=== PATIENT | male | born 1945 | race Caucasian/White ===

== ENCOUNTER 2018-01-20 09:08 | Emergency (ER) | payer MEDICARE, BC ==
[2018-01-20] MEDS ORDERED: Orphenadrine 100 MG Tab.ER PO STA (10:03)
--- NOTE | 2018-01-20 10:03 | EDM.PDOC ---
ED HPI GENERAL MEDICAL PROBLEM - General Chief Complaint: Upper Extremity Injury/Pain Stated Complaint: RIB PAIN Time Seen by Provider: 01/20/18 09:22 Source of Information: Reports: Patient History Limitations: Reports: No Limitations - History of Present Illness INITIAL COMMENTS - FREE TEXT/NARRATIVE: The patient states that he has had a phlegmy cough and lower left rib pain since 01/12/2018. No fever. Chronic shortness of breath due to COPD. He was seen by his PCP, Heather Mchugh, on 01/14/2018. He states that a chest x-ray and blood work were done, and he was told that they were both normal. Nevertheless, the patient was prescribed Levaquin 500 mg x 10 days as well as prednisone 10 mg 2 tabs daily x 5 days. He states that if anything, his symptoms have gotten worse. He states that he coughed last night around 20:00 while lying on his left side, and it developed significantly increased lower left rib pain. His pain is not too severe if he remains still, but much worse if he coughs. The patient denies having any injury to the ribs. 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 left rib area Pain Score (Numeric/FACES): 6 - Related Data Allergies Allergy/AdvReac Type Severity Reaction Status Date / Time atorvastatin Allergy Other Verified 01/20/18 09:21 rosuvastatin Allergy Abdominal Verified 01/20/18 09:21 Pain Home Meds: Home Meds Albuterol Sulfate [Albuterol Sulfate HFA] 2 puff IH Q6H PRN 05/21/14 [History] Aspirin [Adult Low Dose Aspirin EC] 81 mg PO DAILY 05/21/14 [History] Budesonide/Formoterol [Symbicort 160-4.5 MCG] 2 puff INH BID 05/21/14 [History] Furosemide [Lasix] 40 mg PO DAILY 05/21/14 [History] Metoprolol Succinate [Toprol XL] 100 mg PO DAILY 05/21/14 [History] Potassium Chloride [Klor-Con M20] 20 meq PO BID 05/21/14 [History] Tiotropium [Spiriva] 1 puff INH DAILY 05/21/14 [History] Fish Oil/DHA/EPA [Fish Oil 1,200 MG] 1 each PO DAILY 01/20/18 [History] Flaxseed Oil [Flaxseed] 1,000 mg PO DAILY 01/20/18 [History] Levofloxacin [Levaquin] 500 mg PO DAILY 01/20/18 [History] Magnesium 250 mg PO DAILY 01/20/18 [History] Orphenadrine [Norflex] 1 tab PO Q12H PRN #20 tab.er 01/20/18 [Rx] Oxygen 2 liter IH BEDTIME 01/20/18 [History] Prednisone [IJD: predniSONE] 20 mg PO DAILY 01/20/18 [History] Ubidecarenone [Coenzyme Q10] 10 mg PO DAILY 01/20/18 [History] Warfarin Sliding Scale [Coumadin Sliding Scale] 1 each PO DAILY 01/20/18 [ History] Past Medical History HEENT History: Reports: Impaired Vision Cardiovascular History: Reports: Afib, CAD, High Cholesterol, Hypertension Respiratory History: Reports: COPD Musculoskeletal History: Reports: Arthritis - Past Surgical History HEENT Surgical History: Reports: Tonsillectomy Cardiovascular Surgical History: Reports: Valve Replacement (Porcine aortic valve, porcine mitral valve, 04/09/2014), Other (See Below) (Left atrial appendage clip) GI Surgical History: Reports: Hernia, Abdominal (As an infant) Musculoskeletal Surgical History: Reports: ORIF (Left leg. Hardware since removed.) Social & Family History - Family History Family Medical History: Noncontributory - Tobacco Use Smoking Status *Q: Former Smoker Years of Tobacco use: 54 Packs/Tins Daily: 1.5 Month Tobacco Last Used: Quit 01/26/2014 - Caffeine Use Caffeine Use: Reports: Soda - Alcohol Use Alcohol Use History: No - Recreational Drug Use Recreational Drug Use: No - Living Situation & Occupation Living situation: Reports: , with Spouse Occupation: Retired Review of Systems - Review of Systems Review Of Systems: ROS reveals no pertinent complaints other than HPI. ED EXAM, GENERAL - Physical Exam Exam: See Below Exam Limited By: No Limitations General Appearance: Alert, WD/WN, No Apparent Distress Eye Exam: Bilateral Eye: Normal Inspection Ears: Normal External Exam, Hearing Grossly Normal Nose: No Blood, Other (Telangiectasias noted on nose) Throat/Mouth: Normal Inspection, Normal Lips, Normal Voice, No Airway Compromise Head: Atraumatic, Normocephalic Neck: Normal Inspection, Full Range of Motion Respiratory/Chest: No Respiratory Distress, Lungs Clear, Normal Breath Sounds, No Accessory Muscle Use, Other (Reproducible tenderness to palpation of the inferior left ribs) Cardiovascular: Normal Peripheral Pulses, Regular Rate, Rhythm, No Gallop, No JVD, No Murmur, No Rub Peripheral Pulses: 4+: Radial (L), Radial (R) GI/Abdominal: Normal Bowel Sounds, Soft, Non-Tender, No Organomegaly, No Distention, No Abnormal Bruit, No Mass, Other (Patient wearing an abdominal binder) (Male) Exam: Deferred Rectal (Males) Exam: Deferred Back Exam: Normal Inspection, Full Range of Motion, NT Extremities: Normal Inspection, Normal Range of Motion, No Pedal Edema, Normal Capillary Refill Neurological: Alert, Oriented, Normal Cognition, No Motor/Sensory Deficits Psychiatric: Normal Affect Skin Exam: Warm, Dry, Intact, Normal Color, No Rash Course - Vital Signs Last Recorded V/S: Last Vital Signs Temp 36.1 C 01/20/18 09:11 Pulse 84 01/20/18 09:11 Resp 18 01/20/18 09:11 BP 121/74 01/20/18 09:11 Pulse Ox 98 01/20/18 09:11 - Orders/Labs/Meds Meds: Medications Discontinued Medications Generic Name Dose Route Start Last Admin Trade Name Urielq PRN Reason Stop Dose Admin Orphenadrine Citrate 100 mg 01/20/18 10:03 01/20/18 10:12 Norflex PO 01/20/18 10:04 100 mg ONETIME STA Administration - Re-Assessments/Exams Free Text/Narrative Re-Assessment/Exam: 01/20/18 09:55 Two-view chest radiograph appears to be grossly unremarkable. Cardiac silhouette is within normal limits. No pulmonary vascular congestion. No pleural effusions. No focal infiltrate. No pneumothorax. Sternotomy wires, 2 valve annular rings, and a left atrial appendage clip noted. Formal read per the Radiologist pending. 01/20/18 10:03 Chest x-ray results discussed with the patient. There is no evidence of a rib fracture, pneumothorax, or hemothorax. Based on the patient's history and physical examination, I suspect that he has a spasm of some intercostal muscles. I will prescribe Norflex. The patient was prescribed a ten-day course of Levaquin and a five-day course of prednisone on 01/14/2018, despite having a negative chest x-ray and being told that his blood work was unremarkable. I suspect that these were prescribed to treat a COPD exacerbation, however, I disagree with this management. Antibiotics should only be prescribed if there is evidence of an infection, and steroids should only be prescribed for COPD exacerbations if the patient has a 2 year or less life expectancy. If the patient has more than a 2 year life expectancy, as this patient does, steroids should be reserved for life- threatening COPD exacerbations. I'm therefore going to recommend that the patient discontinue both the Levaquin and prednisone. Departure - Departure Time of Disposition: 10:03 Disposition: Home, Self-Care 01 Condition: Good Clinical Impression: Intercostal muscle strain - Discharge Information Prescriptions: Orphenadrine [Norflex] 1 tab PO Q12H PRN #20 tab.er PRN Reason: Muscle Spasm Instructions: Muscle Strain, [id number] Referrals: Heather Mchugh, TELEPHONE MAINTAINER [Primary Care Provider] - Forms: ED Department Discharge Additional Instructions: You were seen in the emergency room for lower left rib pain. Workup in the ER included a chest x-ray, which was unremarkable. There is no evidence of a broken rib. You have not popped a lung, and there is no fluid inside your chest. Further, there is no infiltrate to suggest that you have pneumonia. Your lower left rib pain is MOST LIKELY due to a spasm of some muscles in between your lower left ribs. You have been started on the muscle relaxant Norflex. A prescription for this has been sent to the [facility] on , [address] from [facility]. They are opened between noon and 4:00 today. Take one tablet every 12 hours, as prescribed. As discussed, we recommend that you discontinue the Levaquin, and, if you have any remaining, the prednisone. Follow-up with your PCP, Heather Mchugh, as needed. If any other problems, please do not hesitate to return to the ER.
--- NOTE | 2018-01-20 11:53 | CR ---
Chest: Two views of the chest were obtained. Comparison: Previous chest x-ray of 02/06/14. Heart is enlarged. Previous sternotomy is noted for prosthetic heart valves. Central lung markings mildly increased which is felt compatible with minimal pulmonary vascular congestion. Lungs otherwise are clear. Minimal degenerative change is scattered within the spine. Impression: 1. Interval heart surgery from previous study. 2. Cardiomegaly and mild pulmonary vascular congestion. Diagnostic code #3
== END 2018-01-20 10:33 | disposition home or self-care (01) ==
LOC: JD.ED 09:08
DX: S29.011A Strain of muscle and tendon of front wall of thorax, initial encounter (principal); I10 Essential (primary) hypertension; I25.10 Atherosclerotic heart disease of native coronary artery without angina pectoris; I48.91 Unspecified atrial fibrillation; E78.00 Pure hypercholesterolemia, unspecified; J44.9 Chronic obstructive pulmonary disease, unspecified; Z87.891 Personal history of nicotine dependence; Z95.2 Presence of prosthetic heart valve; Z79.82 Long term (current) use of aspirin; Z79.2 Long term (current) use of antibiotics; Z79.01 Long term (current) use of anticoagulants; Z79.899 Other long term (current) drug therapy; Z88.8 Allergy status to other drugs, medicaments and biological substances; X58.XXXA Exposure to other specified factors, initial encounter
CPT/HCPCS: 71046; 99284; A9270; 99283

== ENCOUNTER 2020-12-01 19:38 | Inpatient (IN) | payer MEDICARE, BC ==
[2020-12-01] MEDS ORDERED: Ondansetron 4 MG/2 ML SDV IVPUSH ONE (20:27)
[2020-12-01] MEDS ORDERED: Sodium Chloride 0.9% 1,000 ML IV SCH (20:30)
--- NOTE | 2020-12-01 20:34 | EDM.PDOC ---
ED HPI GENERAL MEDICAL PROBLEM - General Chief Complaint: General Stated Complaint: ANH AMBULANCE Time Seen by Provider: 12/01/20 20:07 Source of Information: Reports: Patient, Family (Son) History Limitations: Reports: Other (Patient is a poor historian, responding "I guess" a lot) - History of Present Illness INITIAL COMMENTS - FREE TEXT/NARRATIVE: Mr. Hull is a very pleasant 75-year-old gentleman who is now brought to the ED by EMS with a report of a 2-week history of generalized weakness, dyspnea at rest, left lower quadrant abdominal pain, nausea with vomiting - including one episode en route to the ED - and a productive cough. No recent fever. He denies orthopnea. He denies recent constipation, diarrhea, or urinary symptoms. No medical evaluation for these symptoms over the past 2 weeks, and he denies taking any [id number] or home remedies to try to treat any of his symptoms. EMS gave the patient a neb treatment en route to the ED. Here in the ED, the patient is found to be slightly tachycardic at 102 bpm, otherwise, he is hemodynamically stable, afebrile, saturating 97% on 2 L of oxygen per nasal cannula, his usual. Prior to 2 weeks ago, the patient denies having a recent fever, chills, sore throat, ear pain, nasal or sinus congestion, cough, dyspnea, chest pain, palpitations, nausea, vomiting, constipation, diarrhea, abdominal pain, urinary symptoms, recent weight gain or weight loss, recent bloody bowel movements or black bowel movements, recent joint aches, headaches, or rashes. The patient's PCP is Heather Mchugh NP. His Project Specialist is Dr. Ricki Garcia. His Oncologist is Dr. Jeison Zelaya. He does not recall the name of his Tire Duster. He believes he received an influenza vaccine this season, but is not sure. Abdomen Pain Score (Numeric/FACES): 8 - Related Data Allergies Allergy/AdvReac Type Severity Reaction Status Date / Time atorvastatin Allergy Other Verified 12/01/20 19:51 rosuvastatin AdvReac Abdominal Verified 12/01/20 19:51 Pain Home Meds: Home Meds Albuterol Sulfate [Albuterol Sulfate HFA] 2 puff IH Q6H PRN 05/21/14 [History] Aspirin [Adult Low Dose Aspirin EC] 81 mg PO DAILY 05/21/14 [History] Budesonide/Formoterol [Symbicort 160-4.5 MCG] 2 puff INH BID 05/21/14 [History] Furosemide [Lasix] 20 mg PO DAILY 05/21/14 [History] Metoprolol Succinate [Toprol XL] 100 mg PO DAILY 05/21/14 [History] Potassium Chloride [Klor-Con M20] 20 meq PO BID 05/21/14 [History] Tiotropium [Spiriva] 1 puff INH DAILY 05/21/14 [History] Fish Oil/DHA/EPA [Fish Oil 1,200 MG] 1,200 mg PO DAILY 01/20/18 [History] Flaxseed Oil [Flaxseed] 1,000 mg PO DAILY 01/20/18 [History] Magnesium 400 mg PO DAILY 01/20/18 [History] Ubidecarenone [Coenzyme Q10] 10 mg PO DAILY 01/20/18 [History] Pravastatin [Pravachol] 80 mg PO DAILY 09/08/18 [History] Warfarin [Coumadin] 2.5 mg PO SUMOWETHSA 09/08/18 [History] Warfarin [Coumadin] 5 mg PO TUFR 09/08/18 [History] Codeine Phosphate/Guaifenesin [Virtussin AC 10-100 mg/5 ml Lq] 5 ml PO DAILY PRN 12/01/20 [History] Past Medical History HEENT History: Reports: Impaired Vision Cardiovascular History: Reports: Afib, High Cholesterol, Hypertension Respiratory History: Reports: COPD Musculoskeletal History: Reports: Arthritis Oncologic (Cancer) History: Reports: Prostate (receiving CTx, RTx) - Past Surgical History HEENT Surgical History: Reports: Cataract Surgery (bilateral), Tonsillectomy Cardiovascular Surgical History: Reports: Valve Replacement (porcine aortic, porcine mitral, 04/09/2014), Vascular Surgery (right Port-A-Cath), Other (See Below) (Left atrial appendage clip) GI Surgical History: Reports: Hernia, Abdominal (as an infant) Musculoskeletal Surgical History: Reports: ORIF (left leg with subsequent hardware removal) Social & Family History - Tobacco Use Tobacco Use Status *Q: Former Tobacco User Years of Tobacco use: 54 Packs/Tins Daily: 1.5 Month/Year Tobacco Last Used: Quit 01/26/2014 - Caffeine Use Caffeine Use: Reports: Soda - Alcohol Use Alcohol Use History: No - Recreational Drug Use Recreational Drug Use: No - Living Situation & Occupation Living situation: Reports: , with Spouse Occupation: Retired ED ROS GENERAL - Review of Systems Review Of Systems: Comprehensive ROS is negative, except as noted in HPI. ED EXAM, GENERAL - Physical Exam Exam: See Below Exam Limited By: No Limitations General Appearance: Alert, No Apparent Distress, Thin Eye Exam: Bilateral Eye: EOMI, Normal Inspection (s/p cataract surgery) Ears: Normal External Exam, Hearing Grossly Normal Nose: Normal Inspection Throat/Mouth: Normal Inspection, Normal Lips, Normal Voice, No Airway Compromise Head: Atraumatic, Normocephalic Neck: Normal Inspection, Full Range of Motion Respiratory/Chest: No Respiratory Distress, No Accessory Muscle Use, Decreased Breath Sounds, Rhonchi (scattered), Wheezing (faint, end-expiratory). No: Crackles, Stridor, Prolonged Expiration Cardiovascular: Normal Peripheral Pulses, No Edema, No Gallop, No JVD, No Murmur, No Rub, Tachycardia (regular) Peripheral Pulses: 3+: Radial (L), Radial (R) GI/Abdominal: Normal Bowel Sounds, Soft, No Organomegaly, No Distention, No Abnormal Bruit, No Mass, Tender (Generalized, non-focal) Back Exam: Normal Inspection, Full Range of Motion, NT Extremities: Normal Inspection, Normal Range of Motion, No Pedal Edema, Normal Capillary Refill Neurological: Alert, Oriented, No Motor/Sensory Deficits, Other (Poor historian) Psychiatric: Normal Affect Skin Exam: Warm, Dry, Intact, Normal Color, No Rash #1 Interpretation EKG Date: 12/01/20 Time: 20:12 Rhythm: Other (Alternating A. fib with sinus rhythm, tachycardic) Rate (Beats/Min): 104 [place]: Normal P-Wave: Variable QRS: Other (Late transition) ST-T: Normal QT: Prolonged (QTc 503 ms) Comparison: No Change (09/08/2018) Course - Vital Signs Last Recorded V/S: Last Vital Signs Temp 37.1 C 12/02/20 04:15 Pulse 92 12/02/20 04:15 Resp 24 H 12/02/20 01:16 BP 99/57 L 12/02/20 04:15 Pulse Ox 96 12/02/20 04:15 - Orders/Labs/Meds Orders: Active Orders 24 hr Category Date Time Status Admission Status [Patient Status] [ADT] Routine ADT 12/02/20 00:02 Active Abdomen Pelvis w Cont [CT] Stat Exams 12/01/20 20:27 Taken Ang Chest [CT] Stat Exams 12/01/20 21:29 Taken Chest 1V Frontal [CR] Stat Exams 12/01/20 20:28 Taken CULTURE BLOOD [BC] Stat Lab 12/01/20 21:03 Received CULTURE BLOOD [BC] Stat Lab 12/01/20 21:13 Received Blood Culture x2 Reflex Set [OM.PC] Stat Oth 12/01/20 20:32 Ordered EKG 12 Lead [EK] Stat Ther 12/01/20 20:06 Ordered Medication Orders Albuterol (Proventil Hfa) 0 gm INH Q6H PRN PRN Reason: Shortness of Breath Aspirin (Halfprin) 81 mg PO DAILY [facility] Sodium Chloride (Normal Saline) 1,000 mls @ 150 mls/hr IV ASDIRECTED [facility] [place] Last Admin: 12/02/20 04:24 Dose: 150 mls/hr Documented by: BRADJUL Piperacillin Sod/Tazobactam (Sod 4.5 gm/ Sodium Chloride) 100 mls @ 25 mls/hr IV Q8H KWADWO Metoprolol Succinate (Toprol Xl) 100 mg PO DAILY KWADWO Mometasone Furoate/Formoterol Fumar (Dulera 200-5 Mcg) 2 puff IH BID KWADWO Ondansetron HCl (Zofran) 4 mg IVPUSH Q6HR PRN PRN Reason: Nausea/Vomiting Tiotropium Hancock (Spiriva Respimat) 0 gm INH DAILY [facility] [place] Warfarin Sodium (Pharmacy To Dose - Warfarin) 1 dose .XX ASDIRECTED [facility] [place] Labs: Laboratory Tests 12/01/20 12/01/20 12/01/20 Range/Units 19:50 19:50 19:50 WBC 0.70 L* (4.23-9.07) K/mm3 RBC 3.00 L (4.63-6.08) M/mm3 Hgb 8.6 L D (13.7-17.5) gm/dl Hct 27.4 L (40.1-51.0) % MCV 91.3 (79.0-92.2) fl MCH 28.7 (25.7-32.2) pg MCHC 31.4 L (32.2-35.5) g/dl RDW Std Deviation 54.5 H (35.1-43.9) fL Plt Count 178 (163-337) K/mm3 MPV 10.7 (9.4-12.3) fl Neutrophils % (Manual) 10 L (40-60) % Band Neutrophils % 0 (0-10) % Lymphocytes % (Manual) 88 H (20-40) % Atypical Lymphs % 0 % Monocytes % (Manual) 2 (2-10) % Eosinophils % (Manual) 0 L (0.8-7.0) % Basophils % (Manual) 0 L (0.2-1.2) Platelet Estimate Adequate Plt Morphology Comment Normal Anisocytosis 2+ moderate Microcytosis 1+ slight Ovalocytes Few RBC Morph Comment Not Reportable PT 14.8 H (9.7-12.0) SECONDS INR 1.39 D-Dimer, Quantitative 2.98 H (0.19-0.50) mg/L Puncture Site ABG pH (7.35-7.45) ABG pCO2 (35.0-45.0) mmHg ABG pO2 (80.0-100.0) mmHg ABG HCO3 (22.0-26.0) meq/L ABG O2 Saturation (96.0-97.0) % ABG Base Excess (-2-2.0) Jose David Test A-a Gradient mmHg O2 Delivery Device Oxygen Flow Rate FiO2 (21.00-100.00) % Sodium 137 (136-145) mEq/L Potassium 3.6 (3.5-5.1) mEq/L Chloride 98 (98-107) mEq/L Carbon Dioxide 33 H (21-32) mEq/L Anion Gap 9.6 (5-15) BUN 25 H (7-18) mg/dL Creatinine 1.0 (0.7-1.3) mg/dL Est Cr Clr Drug Dosing 49.61 mL/min Estimated GFR (MDRD) > 60 (>60) mL/min BUN/Creatinine Ratio 25.0 H (14-18) Glucose 144 H (83-115) mg/dL Lactic Acid (0.4-2.0) mmol/L Calcium 7.4 L (8.5-10.1) mg/dL Magnesium 2.2 (1.8-2.4) mg/dl Total Bilirubin 2.3 H (0.2-1.0) mg/dL AST 29 (15-37) U/L ALT 29 (16-63) U/L Alkaline Phosphatase 259 H (46-116) U/L Troponin I 0.119 H* (0.00-0.056) ng/mL Total Protein 6.6 (6.4-8.2) g/dl Albumin 3.1 L (3.4-5.0) g/dl Globulin 3.5 gm/dL Albumin/Globulin Ratio 0.9 L (1-2) Lipase 126 (73-393) U/L TSH 3rd Generation 1.967 (0.358-3.74) uIU/mL Influenza Type A RNA (NEGATIVE) Influenza Type B RNA (NEGATIVE) SARS-CoV-2 RNA (JACKY) (NEGATIVE) 12/01/20 12/01/20 12/01/20 Range/Units 20:50 20:50 21:13 WBC (4.23-9.07) K/mm3 RBC (4.63-6.08) M/mm3 Hgb (13.7-17.5) gm/dl Hct (40.1-51.0) % MCV (79.0-92.2) fl MCH (25.7-32.2) pg MCHC (32.2-35.5) g/dl RDW Std Deviation (35.1-43.9) fL Plt Count (163-337) K/mm3 MPV (9.4-12.3) fl Neutrophils % (Manual) (40-60) % Band Neutrophils % (0-10) % Lymphocytes % (Manual) (20-40) % Atypical Lymphs % % Monocytes % (Manual) (2-10) % Eosinophils % (Manual) (0.8-7.0) % Basophils % (Manual) (0.2-1.2) Platelet Estimate Plt Morphology Comment Anisocytosis Microcytosis Ovalocytes RBC Morph Comment PT (9.7-12.0) SECONDS INR D-Dimer, Quantitative (0.19-0.50) mg/L Puncture Site Lt radial ABG pH 7.47 H (7.35-7.45) ABG pCO2 43.7 (35.0-45.0) mmHg ABG pO2 94.0 (80.0-100.0) mmHg ABG HCO3 31.2 H (22.0-26.0) meq/L ABG O2 Saturation 98.0 H (96.0-97.0) % ABG Base Excess 7.2 H (-2-2.0) Jose David Test Positive A-a Gradient 51 mmHg O2 Delivery Device Nasal cannula Oxygen Flow Rate 2.0 FiO2 28.00 (21.00-100.00) % Sodium (136-145) mEq/L Potassium (3.5-5.1) mEq/L Chloride (98-107) mEq/L Carbon Dioxide (21-32) mEq/L Anion Gap (5-15) BUN (7-18) mg/dL Creatinine (0.7-1.3) mg/dL Est Cr Clr Drug Dosing mL/min Estimated GFR (MDRD) (>60) mL/min BUN/Creatinine Ratio (14-18) Glucose (83-115) mg/dL Lactic Acid 1.2 (0.4-2.0) mmol/L Calcium (8.5-10.1) mg/dL Magnesium (1.8-2.4) mg/dl Total Bilirubin (0.2-1.0) mg/dL AST (15-37) U/L ALT (16-63) U/L Alkaline Phosphatase (46-116) U/L Troponin I (0.00-0.056) ng/mL Total Protein (6.4-8.2) g/dl Albumin (3.4-5.0) g/dl Globulin gm/dL Albumin/Globulin Ratio (1-2) Lipase (73-393) U/L TSH 3rd Generation (0.358-3.74) uIU/mL Influenza Type A RNA Negative (NEGATIVE) Influenza Type B RNA Negative (NEGATIVE) SARS-CoV-2 RNA (JACKY) Negative (NEGATIVE) Meds: Medications Generic Name Dose Route Start Last Admin Trade Name Freq PRN Reason Stop Dose Admin Albuterol 0 gm 12/02/20 03:10 Proventil Hfa INH Q6H PRN Shortness of Breath Aspirin 81 mg 12/02/20 09:00 Halfprin PO DAILY KWADWO Sodium Chloride 1,000 mls @ 150 mls/hr 12/02/20 01:30 12/02/20 04:24 Normal Saline IV 150 mls/hr ASDIRECTED KAWDWO Administration Piperacillin Sod/Tazobactam 100 mls @ 25 mls/hr 12/02/20 12:00 Sod 4.5 gm/ Sodium Chloride IV Q8H [facility] Metoprolol Succinate 100 mg 12/02/20 09:00 Toprol Xl PO DAILY [facility] Mometasone Furoate/Formoterol Fumar 2 puff 12/02/20 09:00 Dulera 200-5 Mcg IH BID [facility] Ondansetron HCl 4 mg 12/02/20 01:27 Zofran IVPUSH Q6HR PRN Nausea/Vomiting Tiotropium [place] 0 gm 12/02/20 09:00 Spiriva Respimat INH DAILY [facility] [place] Warfarin Sodium 1 dose 12/02/20 03:15 Pharmacy To Dose - Warfarin .XX ASDIRECTED [facility] Discontinued Medications Generic Name Dose Route Start Last Admin Trade Name Freq PRN Reason Stop Dose Admin Sodium Chloride 1,000 mls @ 150 mls/hr 12/01/20 20:30 12/01/20 20:46 Normal Saline IV 150 mls/hr ASDIRECTED [facility] [place] Administration Levofloxacin/Dextrose 750 mg/ 150 mls @ 100 mls/hr 12/01/20 21:57 12/01/20 22:45 Premix IV 12/01/20 23:26 100 mls/hr ONETIME STA Administration Metronidazole 500 mg/ Premix 100 mls @ 100 mls/hr 12/01/20 23:27 12/01/20 23:45 IV 12/02/20 00:26 100 mls/hr ONETIME ONE Administration Metronidazole 500 mg/ Premix 100 mls @ 100 mls/hr 12/02/20 08:00 IV Q8H KWADWO Levofloxacin/Dextrose 750 mg/ 150 mls @ 100 mls/hr 12/02/20 22:00 Premix IV Q24H KWADWO Piperacillin Sod/Tazobactam 100 mls @ 200 mls/hr 12/02/20 03:09 12/02/20 03:42 Sod 4.5 gm/ Sodium Chloride IV 12/02/20 03:38 200 mls/hr ONETIME ONE Administration Ondansetron HCl 4 mg 12/01/20 20:27 12/01/20 20:46 Zofran IVPUSH 12/01/20 20:28 4 mg ONETIME ONE Administration Tramadol HCl 50 mg 12/02/20 01:42 12/02/20 02:19 Ultram PO 12/02/20 01:43 50 mg ONETIME ONE Administration - Re-Assessments/Exams Free Text/Narrative Re-Assessment/Exam: 12/01/20 20:33 As above, the patient has had approximately 2 weeks of generalized weakness, dyspnea, left lower quadrant abdominal pain, nausea with emesis, and a productive cough, although he is a poor historian, so precisely what has been going on is not entirely clear. An ECG obtained at triage appears to demonstrate alternating atrial fibrillation with sinus rhythm, with tachycardia. On examination, he has overall diminished breath sounds and generalized abdominal tenderness. I have ordered an extensive work-up and includes several blood tests, an ABG, 2 sets of blood cultures, a urinalysis, a swab for both COVID-19 and influenza, a portable chest x-ray, and a CT of the abdomen and pelv is with oral and IV contrast. In the meantime, the patient will be given IV fluid and IV Zofran. 12/01/20 21:30 Portable chest radiograph reviewed. The cardiac silhouette is within normal limits. No pulmonary vascular congestion. No pleural effusions seen on this AP view. No focal infiltrate. No pneumothorax. There are sternotomy wires, as well as valve replacement wires, as well as a left atrial appendage clip. There is a right Port-A-Cath. Formal read per the Radiologist pending. The patient's CMP is remarkable for a bicarbonate elevated at 33, and a BUN elevated 25 with a Cr within normal is at 1.0. He has mild hyperglycemia of 144. His TBil is elevated at 2.3, and his alkaline phosphatase 259, with the remainder of his CMP being unremarkable. His magnesium is within normal limits at 2.2. His lipase is within normal limits at 126. His TSH is within normal limits at 1.967. His troponin is elevated at 0.119. His D-dimer is elevated at 2.98. His INR is subtherapeutic at 1.39. His ABG represents a combined metabolic alkalosis and respiratory alkalosis. The patient's CBC, lactic acid level, urinalysis, swab for the COVID- 19/influenza, and CT of the abdomen and pelvis are all still pending. Based on the above, I have ordered a CT angiogram of the chest to evaluate for a pulmonary embolus. I spoke to the electrical instrument technician; the CT angiogram of the chest and CT of the abdomen and pelvis will be performed at the same time. 12/01/20 21:54 The patient's CBC is remarkable for a WBC count severely depressed at 0.70, giving him an ANC of 70 cells/microL. His H/H is depressed at 8.6/27.4, with the remainder of his CBC being unremarkable. His lactic acid level is within normal limits at 1.2. His swab for the SARS-CoV-2 virus has returned negative. His swab for influenza has returned negative. Based on the patient's severe neutropenia. I will start him on empiric l evofloxacin. 12/01/20 23:16 CT of the abdomen and pelvis with oral and IV contrast is read by [facility] as: 1. Concern for mild/early acute uncomplicated sigmoid diverticulitis. 2. Retroperitoneal, left pelvic sidewall, and left inguinal adenopathy most in favor with metastatic/infiltrative adenopathy. 3. Extensive skeletal metastasis. 4. Trabeculated urinary bladder with question of urinary bladder diverticula. Consider ultrasound correlation in a nonemergent setting. 5. Incidental findings as detailed above. 12/01/20 23:24 CT angiogram of the chest is read by [facility] as: 1. No acute pulmonary embolic disease. 2. Mediastinal lymphadenopathy. 3. Extensive osseous metastases. 4. Centrilobular emphysema. The patient has not yet provided a urine sample. Based on the above, I will add metronidazole 500 mg. Because of his severe neutropenia, I believe he would benefit from hospitalization. 12/01/20 23:50 Test results discussed with the patient. He is already aware that his prostate cancer is "pretty bad". He is agreeable to being admitted to the hospital. Case then discussed with Dr. Ayala at 23:46. Dr. Ayala was kind enough to accept the patient for admission to the hospital, however, he would like to know the patient's CODE STATUS. 12/01/20 23:57 The patient tells me that he would like to be DNR/DNI. Departure - Departure Time of Disposition: 23:51 Disposition: Admitted As Inpatient 64 Condition: Fair Clinical Impression: Prostate cancer, Severe neutropenia, Diverticulitis, Elevated troponin, Subtherapeutic international normalized ratio (INR), Atrial fibrillation, Metabolic alkalosis - Discharge Information Sepsis Event Note (ED) - Evaluation Sepsis Screening Result: No Definite Risk - Focused Exam Vital Signs: Vital Signs Temp Pulse Resp BP Pulse Ox 12/01/20 19:45 37.1 C 102 H 20 110/69 97 - My Orders Last 24 Hours: My Active Orders 12/01/20 20:06 EKG 12 Lead [EK] Stat 12/01/20 20:27 Abdomen Pelvis w Cont [CT] Stat 12/01/20 20:28 Chest 1V Frontal [CR] Stat 12/01/20 20:32 Blood Culture x2 Reflex Set [OM.PC] Stat 12/01/20 21:03 CULTURE BLOOD [BC] Stat 12/01/20 21:13 CULTURE BLOOD [BC] Stat 12/01/20 21:29 Ang Chest [CT] Stat 12/02/20 00:02 Admission Status [Patient Status] [ADT] Routine - Assessment/Plan Last 24 Hours: My Active Orders 12/01/20 20:06 EKG 12 Lead [EK] Stat 12/01/20 20:27 Abdomen Pelvis w Cont [CT] Stat 12/01/20 20:28 Chest 1V Frontal [CR] Stat 12/01/20 20:32 Blood Culture x2 Reflex Set [OM.PC] Stat 12/01/20 21:03 CULTURE BLOOD [BC] Stat 12/01/20 21:13 CULTURE BLOOD [BC] Stat 12/01/20 21:29 Ang Chest [CT] Stat 12/02/20 00:02 Admission Status [Patient Status] [ADT] Routine
[2020-12-01 21:38] LABS: CORONAVIRUS COVID-19 NAA NEGATIVE (NEGATIVE)
[2020-12-01] MEDS ORDERED: Levofloxacin/Dextrose 5%-Water 750 MG in Premix Bag 1 BAG IV STA (21:57)
[2020-12-01] MEDS ORDERED: metroNIDAZOLE/Normal Saline 500 MG in Premix Bag 1 BAG IV ONE (23:27)
[2020-12-02] MEDS ORDERED: Ondansetron 4 MG/2 ML SDV IVPUSH PRN (01:27)
[2020-12-02] MEDS ORDERED: traMADol 50 MG Tab PO ONE (01:42)
[2020-12-02] MEDS ORDERED: Piperacillin/Tazobactam 4.5 GM in Sodium Chloride 0.9% 100 ML IV ONE (03:09)
[2020-12-02] MEDS ORDERED: Albuterol 6.7 GM Inhaler INH PRN (03:10)
[2020-12-02] MEDS: Sodium Chloride 0.9% 1,000 ML IV SCH ×2 (04:24→11:50)
[2020-12-02] MEDS ORDERED: metroNIDAZOLE/Normal Saline 500 MG in Premix Bag 1 BAG IV SCH (08:00)
[2020-12-02] MEDS: Aspirin 81 MG Tab.EC PO SCH (08:15)
[2020-12-02] MEDS: Metoprolol Succinate 50 MG Tab.ER PO SCH (08:16)
--- NOTE | 2020-12-02 08:28 | CR ---
Chest: Portable view of the chest was obtained. Comparison: Prior chest x-ray of 09/08/18 and 01/20/18. Heart is enlarged. 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 Sternotomy wires are present. Right-sided infusion port is seen. Lungs show no definite acute parenchymal change. Bony structures show nothing acute. Impression: 1. Multiple findings as noted above. 2. Nothing acute is definitely appreciated. Diagnostic code #2
--- NOTE | 2020-12-02 08:29 | PCM.HP.2 ---
H&P History of Present Illness - General Date of Service: 12/02/20 Admit Problem/Dx: Admission Diagnosis/Problem Admission Diagnosis/Problem Diverticulitis Source of Information: Patient, Old Records, Provider, RN History Limitations: Reports: No Limitations - History of Present Illness Initial Comments - Free Text/Narative: This is a 75-year-old male who presents to ED on 12/01/2020 via [facility] with a 2-week history of generalized weakness, dyspnea at rest, left lower quad abdominal pain, nausea, vomiting, and productive cough. He did have 1 episode of emesis in the ambulance. Denies any recent fever, constipation, diarrhea, urinary symptoms, or orthopnea. Denies any home treatment. He was given a nebulizer in route to the ED and was found to be tachycardic with a heart rate of 102, but was otherwise afebrile. He is on 2 L of oxygen, which is his baseline, and saturations are 97%. In the ED twelve-lead EKG is obtained showing a alternating A. fib and sinus rhythm at a rate of 104 bpm. He was variable and there is late transition noted along with a prolonged QTC of 503. There is no change from 09/08/2018. Labs are obtained showing a WBC of 0.70. Hemoglobin is 8.6. Hematocrit 27.4. He is normocytic. Platelets are 178. Neutrophils are low at 10%. There is no bandemia. INR is 1.39. D-dimer is 2.98. Sodium 137. Potassium 3.6. Chloride 98. Carbon dioxide 33. Anion gap 9.6. BUN is 25. Creatinine 1.0. GFR is greater than 60. Glucose 144. Calcium of 7.4. Magnesium 2.2. Bilirubin 2.3. AST is 29, ALT is 29, alkaline phosphatase is 259. Troponin 0 0.119. Protein 6.6. Albumin 3.1. Lipase 126. TSH is 1.967. ABG is obtained in the left radial with a pH of 7.47, PCO2 of 43.7. PO2 of 94. HCO3 is 31.2. O2 saturation is 98.0. Base excess is 7.2. A-a gradient is 51. We will on 2 L via nasal cannula. Lactic acid is 1.2. Influenza a and B and SARS-CoV-2 RNA are all negative. UA is obtained and is negative however 1+ protein is noted. Cultures are obtained and are pending. Chest x-ray notes an enlarged heart with static heart valves and sternotomy wires. Right-sided infusion port is noted. Nothing acute is seen. CT scan of the abdomen and pelvis is interpreted by Dr. Cano as "1. Findings compatible with mild diverticulitis. 2. Findings compatible with osseous metastatic disease. Retroperitoneal adenopathy is seen with adenopathy continuing along the left iliac chain. Slightly prominent lymph node within the left inguinal region is seen. These are most likely metastatic. 3. Bladder wall thickening with bladder diverticulum. Consider bladder ultrasound to further evaluate if clinical etiology is not known. 4. Other findings as noted above which are nonacute." CT angiogram of the chest is obtained interpreted by Dr. Cano as "1. No findings of pulmonary embolism. 2. Mild mediastinal adenopathy is seen. Several slightly prominent lymph nodes within the upper retroperitoneum at the diaphragmatic margin are seen. Diffuse osteosclerotic metastatic changes seen through the osseous structure. 3. Emphysematous change. No acute parenchymal process is seen." He started on NS a t 750 mg of Levaquin and 500 mg metronidazole. He is also given tramadol and Zofran. Per the ED note patient is aware that his prostate cancer is "pretty bad" and he agrees to being admitted to the hospital. He carries a history of A. fib, HLD, hypertension, COPD, arthritis, prostate cancer and is receiving chemotherapy and radiation therapy, catheter placement in right chest, porcine aortic and mitral valve replacement on 04/09/2014. He is a former smoker. His PCP is Jones Mchugh NP. His Herbicide Sprayer is Dr. Ricki Garcia. His oncologist is Dr. Jeison Zelaya. He is subsequently admitted to the medical floor for management of his diverticulitis and neutropenia with further discussion into his significant metastatic disease. He is a DNR/DNI. Abdomen Pain Score (Numeric/FACES): 6 - Related Data Allergies/Adverse Reactions: Allergies Allergy/AdvReac Type Severity Reaction Status Date / Time atorvastatin Allergy Other Verified 12/01/20 19:51 rosuvastatin AdvReac Abdominal Verified 12/01/20 19:51 Pain Home Medications: Home Meds Albuterol Sulfate [Albuterol Sulfate HFA] 2 puff IH Q6H PRN 05/21/14 [History] Aspirin [Adult Low Dose Aspirin EC] 81 mg PO DAILY 05/21/14 [History] Budesonide/Formoterol [Symbicort 160-4.5 MCG] 2 puff INH BID 05/21/14 [History] Furosemide [Lasix] 40 mg PO DAILY 05/21/14 [History] Metoprolol Succinate [Toprol XL] 100 mg PO DAILY 05/21/14 [History] Potassium Chloride [Klor-Con M20] 20 meq PO BID 05/21/14 [History] Tiotropium [Spiriva] 18 mcg INH DAILY 05/21/14 [History] Fish Oil/DHA/EPA [Fish Oil 1,200 MG] 1,200 mg PO DAILY 01/20/18 [History] Flaxseed Oil [Flaxseed] 1,000 mg PO DAILY 01/20/18 [History] Magnesium 400 mg PO DAILY 01/20/18 [History] Ubidecarenone [Coenzyme Q10] 10 mg PO DAILY 01/20/18 [History] Pravastatin [Pravachol] 80 mg PO DAILY 09/08/18 [History] Bicalutamide [Casodex] 50 mg PO DAILY 12/02/20 [History] Diphenhyd/Lidocaine/Nystatin [Magic Mouthwash] 15 ml PO TID PRN 12/02/20 [History] Lidocaine/Prilocaine [Lido-Prilo Vinod Pack] 1 applic TOP ASDIRECTED PRN 12/02/20 [History] Prochlorperazine [Compazine] 10 mg PO QID PRN 12/02/20 [History] Warfarin [Coumadin] 1.25 mg PO MOFR 12/02/20 [History] Warfarin [Coumadin] 2.5 mg PO SUTUWETHSA 12/02/20 [History] predniSONE [Prednisone] 5 mg PO BIDMEALS 12/02/20 [History] traMADol [Ultram] 50 - 100 mg PO Q4H PRN 12/02/20 [History] Past Medical History HEENT History: Reports: Impaired Vision, Other (See Below) Other HEENT History: Has glasses at home Cardiovascular History: Reports: Afib, High Cholesterol, Hypertension Other Cardiovascular History: aortic and mitral valve replacement 03/2014, and 2018 coumadin therapy Respiratory History: Reports: COPD Other Respiratory History: emphysema Gastrointestinal History: Reports: Diverticulosis Genitourinary History: Reports: BPH Musculoskeletal History: Reports: Arthritis Hematologic History: Reports: Anemia Immunologic History: Reports: Immunosuppression Oncologic (Cancer) History: Reports: Prostate, Other (See Below) Other Oncologic History: Mets noted with CT done in ER. Noted in skeletal, bladder, pelvis - Infectious Disease History Infectious Disease History: Reports: Chicken Pox, Measles - Past Surgical History HEENT Surgical History: Reports: Cataract Surgery, Tonsillectomy Cardiovascular Surgical History: Reports: Valve Replacement, Vascular Surgery, Other (See Below) Other Respiratory Surgeries/Procedures: wears oxygen at HS and during they day as needed GI Surgical History: Reports: Hernia, Abdominal Musculoskeletal Surgical History: Reports: ORIF Social & Family History - Family History Family Medical History: No Pertinent Family History - Tobacco Use Tobacco Use Status *Q: Former Tobacco User Years of Tobacco use: 50 Packs/Tins Daily: 1 Used Tobacco, but Quit: No Month/Year Tobacco Last Used: 2012 Second Hand Smoke Exposure: No - Caffeine Use Caffeine Use: Reports: None - Recreational Drug Use Recreational Drug Use: No - Living Situation & Occupation Living situation: Reports: , with Spouse Occupation: Retired H&P Review of Systems - Review of Systems: Review Of Systems: See Below General: Reports: Malaise, Weakness, Fatigue, Weight Loss. Denies: Fever, Chills HEENT: Reports: No Symptoms. Denies: Headaches, Hearing Changes Pulmonary: Reports: Shortness of Breath, Wheezing. Denies: Cough, Sputum Cardiovascular: Reports: Dyspnea on Exertion. Denies: Chest Pain, Palpitations, Orthopnea, Edema, Lightheadedness Gastrointestinal: Reports: Abdominal Pain (LLQ), Anorexia, Nausea. Denies: Constipation, Diarrhea, Vomiting Genitourinary: Reports: No Symptoms. Denies: Pain Musculoskeletal: Reports: No Symptoms Skin: Reports: No Symptoms. Denies: Cyanosis Psychiatric: Reports: No Symptoms. Denies: Confusion Neurological: Reports: No Symptoms, Difficulty Walking, Weakness. Denies: Confusion, Dizziness, Headache, Numbness, Pre-Existing Deficit, Tingling, Trouble Speaking, Gait Disturbance Hematologic/Lymphatic: Reports: No Symptoms Immunologic: Reports: No Symptoms Exam - Exam Exam: See Below - Vital Signs Vital Signs: Last Vital Signs Temp 97.9 F 12/02/20 07:21 Pulse 92 12/02/20 07:21 Resp 16 01/07/21 07:21 BP 108/51 L 12/02/20 07:21 Pulse Ox 98 12/02/20 07:21 Weight: 116 lb 14.4 oz - Exam Quality Assessment: Supplemental Oxygen (2L - baseline ), Central Line/PICC (Port in chest ). No: DVT Prophylaxis General: Alert, Oriented, Cooperative. No: Mild Distress HEENT: Conjunctiva Clear, EACs Clear Neck: Supple, Trachea Midline Lungs: Clear to Auscultation, Normal Respiratory Effort, Decreased Breath Sounds, Wheezing (mild) Cardiovascular: Regular Rate, Regular Rhythm GI/Abdominal Exam: Normal Bowel Sounds, Soft, No Mass, Pelvis Stable, Tender (Male) Exam: Deferred Rectal (Males) Exam: Deferred Back Exam: Normal Inspection, Full Range of Motion Extremities: Normal Inspection, Normal Range of Motion, Non-Tender, No Pedal Edema, Normal Capillary Refill Skin: Warm, Dry, Intact Neurological: Cranial Nerves Intact (Grossly ) Neuro Extensive - Mental Status: Alert, Oriented x3, Normal Mood/Affect Psychiatric: Alert, Normal Affect, Normal Mood - Patient Data Lab Results Last 24 hrs: Laboratory Results - last 24 hr 12/01/20 12/01/20 12/01/20 Range/Units 19:50 19:50 19:50 WBC 0.70 L* (4.23-9.07) K/mm3 RBC 3.00 L (4.63-6.08) M/mm3 Hgb 8.6 L D (13.7-17.5) gm/dl Hct 27.4 L (40.1-51.0) % MCV 91.3 (79.0-92.2) fl MCH 28.7 (25.7-32.2) pg MCHC 31.4 L (32.2-35.5) g/dl RDW Std Deviation 54.5 H (35.1-43.9) fL Plt Count 178 (163-337) K/mm3 MPV 10.7 (9.4-12.3) fl Neutrophils % (Manual) 10 L (40-60) % Band Neutrophils % 0 (0-10) % Lymphocytes % (Manual) 88 H (20-40) % Atypical Lymphs % 0 % Monocytes % (Manual) 2 (2-10) % Eosinophils % (Manual) 0 L (0.8-7.0) % Basophils % (Manual) 0 L (0.2-1.2) Platelet Estimate Adequate Plt Morphology Comment Normal Anisocytosis 2+ moderate Microcytosis 1+ slight Ovalocytes Few RBC Morph Comment Not Reportable PT 14.8 H (9.7-12.0) SECONDS INR 1.39 D-Dimer, Quantitative 2.98 H (0.19-0.50) mg/L Puncture Site ABG pH (7.35-7.45) ABG pCO2 (35.0-45.0) mmHg ABG pO2 (80.0-100.0) mmHg ABG HCO3 (22.0-26.0) meq/L ABG O2 Saturation (96.0-97.0) % ABG Base Excess (-2-2.0) Jose David Test A-a Gradient mmHg O2 Delivery Device Oxygen Flow Rate FiO2 (21.00-100.00) % Sodium 137 (136-145) mEq/L Potassium 3.6 (3.5-5.1) mEq/L Chloride 98 (98-107) mEq/L Carbon Dioxide 33 H (21-32) mEq/L Anion Gap 9.6 (5-15) BUN 25 H (7-18) mg/dL Creatinine 1.0 (0.7-1.3) mg/dL Est Cr Clr Drug Dosing 49.61 mL/min Estimated GFR (MDRD) > 60 (>60) mL/min BUN/Creatinine Ratio 25.0 H (14-18) Glucose 144 H (83-115) mg/dL Lactic Acid (0.4-2.0) mmol/L Calcium 7.4 L (8.5-10.1) mg/dL Magnesium 2.2 (1.8-2.4) mg/dl Total Bilirubin 2.3 H (0.2-1.0) mg/dL AST 29 (15-37) U/L ALT 29 (16-63) U/L Alkaline Phosphatase 259 H (46-116) U/L Troponin I 0.119 H* (0.00-0.056) ng/mL Total Protein 6.6 (6.4-8.2) g/dl Albumin 3.1 L (3.4-5.0) g/dl Globulin 3.5 gm/dL Albumin/Globulin Ratio 0.9 L (1-2) Lipase 126 (73-393) U/L TSH 3rd Generation 1.967 (0.358-3.74) uIU/mL Urine Color (Yellow) Urine Appearance (Clear) Urine pH (5.0-8.0) Ur Specific [place] (1.005-1.030) Urine Protein (Negative) Urine Glucose (UA) (Negative) Urine Ketones (Negative) Urine Occult Blood (Negative) Urine Nitrite (Negative) Urine Bilirubin (Negative) Urine Urobilinogen (0.2-1.0) Ur Leukocyte Esterase (Negative) Urine RBC (0-5) /hpf Urine WBC (0-5) /hpf Ur Squamous Epith Cells (0-5) /hpf Urine Bacteria (FEW) /hpf Urine Mucus (FEW) /hpf Influenza Type A RNA (NEGATIVE) Influenza Type B RNA (NEGATIVE) SARS-CoV-2 RNA (JACKY) (NEGATIVE) 12/01/20 12/01/20 12/01/20 Range/Units 20:50 20:50 21:13 WBC (4.23-9.07) K/mm3 RBC (4.63-6.08) M/mm3 Hgb (13.7-17.5) gm/dl Hct (40.1-51.0) % MCV (79.0-92.2) fl MCH (25.7-32.2) pg MCHC (32.2-35.5) g/dl RDW Std Deviation (35.1-43.9) fL Plt Count (163-337) K/mm3 MPV (9.4-12.3) fl Neutrophils % (Manual) (40-60) % Band Neutrophils % (0-10) % Lymphocytes % (Manual) (20-40) % Atypical Lymphs % % Monocytes % (Manual) (2-10) % Eosinophils % (Manual) (0.8-7.0) % Basophils % (Manual) (0.2-1.2) Platelet Estimate Plt Morphology Comment Anisocytosis Microcytosis Ovalocytes RBC Morph Comment PT (9.7-12.0) SECONDS INR D-Dimer, Quantitative (0.19-0.50) mg/L Puncture Site Lt radial ABG pH 7.47 H (7.35-7.45) ABG pCO2 43.7 (35.0-45.0) mmHg ABG pO2 94.0 (80.0-100.0) mmHg ABG HCO3 31.2 H (22.0-26.0) meq/L ABG O2 Saturation 98.0 H (96.0-97.0) % ABG Base Excess 7.2 H (-2-2.0) Jose David Test Positive A-a Gradient 51 mmHg O2 Delivery Device Nasal cannula Oxygen Flow Rate 2.0 FiO2 28.00 (21.00-100.00) % Sodium (136-145) mEq/L Potassium (3.5-5.1) mEq/L Chloride (98-107) mEq/L Carbon Dioxide (21-32) mEq/L Anion Gap (5-15) BUN (7-18) mg/dL Creatinine (0.7-1.3) mg/dL Est Cr Clr Drug Dosing mL/min Estimated GFR (MDRD) (>60) mL/min BUN/Creatinine Ratio (14-18) Glucose (83-115) mg/dL Lactic Acid 1.2 (0.4-2.0) mmol/L Calcium (8.5-10.1) mg/dL Magnesium (1.8-2.4) mg/dl Total Bilirubin (0.2-1.0) mg/dL AST (15-37) U/L ALT (16-63) U/L Alkaline Phosphatase (46-116) U/L Troponin I (0.00-0.056) ng/mL Total Protein (6.4-8.2) g/dl Albumin (3.4-5.0) g/dl Globulin gm/dL Albumin/Globulin Ratio (1-2) Lipase (73-393) U/L TSH 3rd Generation (0.358-3.74) uIU/mL Urine Color (Yellow) Urine Appearance (Clear) Urine pH (5.0-8.0) Ur Specific [place] (1.005-1.030) Urine Protein (Negative) Urine Glucose (UA) (Negative) Urine Ketones (Negative) Urine Occult Blood (Negative) Urine Nitrite (Negative) Urine Bilirubin (Negative) Urine Urobilinogen (0.2-1.0) Ur Leukocyte Esterase (Negative) Urine RBC (0-5) /hpf Urine WBC (0-5) /hpf Ur Squamous Epith Cells (0-5) /hpf Urine Bacteria (FEW) /hpf Urine Mucus (FEW) /hpf Influenza Type A RNA Negative (NEGATIVE) Influenza Type B RNA Negative (NEGATIVE) SARS-CoV-2 RNA (JACKY) Negative (NEGATIVE) 12/02/20 12/02/20 12/02/20 Range/Units 00:50 06:15 06:15 WBC (4.23-9.07) K/mm3 RBC (4.63-6.08) M/mm3 Hgb (13.7-17.5) gm/dl Hct (40.1-51.0) % MCV (79.0-92.2) fl MCH (25.7-32.2) pg MCHC (32.2-35.5) g/dl RDW Std Deviation (35.1-43.9) fL Plt Count (163-337) K/mm3 MPV (9.4-12.3) fl Neutrophils % (Manual) (40-60) % Band Neutrophils % (0-10) % Lymphocytes % (Manual) (20-40) % Atypical Lymphs % % Monocytes % (Manual) (2-10) % Eosinophils % (Manual) (0.8-7.0) % Basophils % (Manual) (0.2-1.2) Platelet Estimate Plt Morphology Comment Anisocytosis Microcytosis Ovalocytes RBC Morph Comment PT 15.9 H (9.7-12.0) SECONDS INR 1.50 D-Dimer, Quantitative (0.19-0.50) mg/L Puncture Site ABG pH (7.35-7.45) ABG pCO2 (35.0-45.0) mmHg ABG pO2 (80.0-100.0) mmHg ABG HCO3 (22.0-26.0) meq/L ABG O2 Saturation (96.0-97.0) % ABG Base Excess (-2-2.0) Jose David Test A-a Gradient mmHg O2 Delivery Device Oxygen Flow Rate FiO2 (21.00-100.00) % Sodium 138 (136-145) mEq/L Potassium 3.2 L (3.5-5.1) mEq/L Chloride 99 (98-107) mEq/L Carbon Dioxide 31 (21-32) mEq/L Anion Gap 11.2 (5-15) BUN 21 H (7-18) mg/dL Creatinine 1.0 (0.7-1.3) mg/dL Est Cr Clr Drug Dosing 46.40 mL/min Estimated GFR (MDRD) > 60 (>60) mL/min BUN/Creatinine Ratio 21.0 H (14-18) Glucose 112 (83-115) mg/dL Lactic Acid (0.4-2.0) mmol/L Calcium 6.0 L (8.5-10.1) mg/dL Magnesium (1.8-2.4) mg/dl Total Bilirubin (0.2-1.0) mg/dL AST (15-37) U/L ALT (16-63) U/L Alkaline Phosphatase (46-116) U/L Troponin I (0.00-0.056) ng/mL Total Protein (6.4-8.2) g/dl Albumin (3.4-5.0) g/dl Globulin gm/dL Albumin/Globulin Ratio (1-2) Lipase (73-393) U/L TSH 3rd Generation (0.358-3.74) uIU/mL Urine Color Yellow (Yellow) Urine Appearance Clear (Clear) Urine pH 5.5 (5.0-8.0) Ur Specific [place] <=1.005 (1.005-1.030) Urine Protein 1+ H (Negative) Urine Glucose (UA) Negative (Negative) Urine Ketones Negative (Negative) Urine Occult Blood Negative (Negative) Urine Nitrite Negative (Negative) Urine Bilirubin Negative (Negative) Urine Urobilinogen 0.2 (0.2-1.0) Ur Leukocyte Esterase Negative (Negative) Urine RBC 0-5 (0-5) /hpf Urine WBC 0-5 (0-5) /hpf Ur Squamous Epith Cells 0-5 (0-5) /hpf Urine Bacteria Few (FEW) /hpf Urine Mucus Rare (FEW) /hpf Influenza Type A RNA (NEGATIVE) Influenza Type B RNA (NEGATIVE) SARS-CoV-2 RNA (JACKY) (NEGATIVE) Result Diagrams: 12/01/20 19:50 12/02/20 06:15 Sepsis Event Note - Evaluation Sepsis Screening Result: No Definite Risk - Focused Exam Vital Signs: Vital Signs Temp Pulse Pulse Resp BP BP Pulse Ox 12/02/20 07:21 97.9 F 92 16 108/51 L 98 12/02/20 04:15 98.8 F 92 99/57 L 96 12/02/20 01:16 98.2 F 93 24 H 100/72 100 12/02/20 00:45 90 27 H 107/56 L 94 L - Problem List (1) Metastatic neoplasm SNOMED Code(s): 936339494 ICD Code: C79.9 - SECONDARY MALIGNANT NEOPLASM OF UNSPECIFIED SITE Status: Acute Priority: High Current Visit: Yes Qualifiers: Area of secondary neoplastic involvement: unspecified site Qualified Code(s): C79.9 - Secondary malignant neoplasm of unspecified site (2) Atrial fibrillation SNOMED Code(s): 24362429 ICD Code: I48.91 - UNSPECIFIED ATRIAL FIBRILLATION Status: Chronic Priority: Medium Current Visit: No Qualifiers: Atrial fibrillation type: paroxysmal Qualified Code(s): I48.0 - Paroxysmal atrial fibrillation (3) Diverticulitis SNOMED Code(s): 804372553 ICD Code: K57.92 - DVTRCLI OF INTEST, PART UNSP, W/O PERF OR ABSCESS W/O BLEED Status: Acute Priority: High Current Visit: Yes (4) Elevated troponin SNOMED Code(s): 751248083, 727197127, 496477026 ICD Code: R77.8 - OTHER SPECIFIED ABNORMALITIES OF PLASMA PROTEINS Status: Acute Priority: High Current Visit: Yes (5) Metabolic alkalosis SNOMED Code(s): 6661440 ICD Code: E87.3 - ALKALOSIS Status: Acute Priority: High Current Visit: Yes (6) Prostate cancer SNOMED Code(s): 885432741 ICD Code: C61 - MALIGNANT NEOPLASM OF PROSTATE Status: Chronic Priority: High Current Visit: Yes (7) Severe neutropenia SNOMED Code(s): 334098845 ICD Code: D70.9 - NEUTROPENIA, UNSPECIFIED Status: Acute Priority: High Current Visit: Yes (8) Subtherapeutic international normalized ratio (INR) SNOMED Code(s): 552543910, 094925855 ICD Code: R79.1 - ABNORMAL COAGULATION PROFILE Status: Acute Priority: High Current Visit: Yes (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 SNOMED Code(s): 79171975 ICD Code: J43.9 - EMPHYSEMA, UNSPECIFIED Status: Chronic Priority: Medium Current Visit: No Qualifiers: Emphysema type: panlobular Qualified Code(s): J43.1 - Panlobular emphysema (10) Port-A-Cath in place SNOMED Code(s): 469622131 ICD Code: Z95.828 - PRESENCE OF OTHER VASCULAR IMPLANTS AND GRAFTS Status: Chronic Priority: Medium Current Visit: No (11) History of aortic valve replacement with porcine valve SNOMED Code(s): 84071043146026, 525504958, 59416964394422 ICD Code: Z95.3 - PRESENCE OF XENOGENIC HEART VALVE Status: Chronic Priority: Low Current Visit: No (12) History of mitral valve replacement with porcine valve SNOMED Code(s): 48865211400156 ICD Code: Z95.3 - PRESENCE OF XENOGENIC HEART VALVE Status: Chronic Priority: Low Current Visit: No (13) Former smoker SNOMED Code(s): 5159681 ICD Code: Z87.891 - PERSONAL HISTORY OF NICOTINE DEPENDENCE Status: Chronic Priority: Low Current Visit: No (14) Hypokalemia SNOMED Code(s): 31867218 ICD Code: E87.6 - HYPOKALEMIA Status: Acute Priority: High Current Visit: Yes (15) Hypoalbuminemia SNOMED Code(s): 763476307 ICD Code: E88.09 - OTH DISORDERS OF PLASMA-PROTEIN METABOLISM, NEC Status: Acute Priority: High Current Visit: Yes (16) Generalized weakness SNOMED Code(s): 02108751 ICD Code: R53.1 - WEAKNESS Status: Acute Priority: High Current Visit: Yes (17) Hypocalcemia SNOMED Code(s): 8134460 ICD Code: E83.51 - HYPOCALCEMIA Status: Acute Priority: High Current Visit: Yes Problem List Initiated/Reviewed/Updated: Yes Orders Last 24hrs: Active Orders 24 hr Category Date Time Status Admission Status [Patient Status] [ADT] Routine ADT 12/02/20 00:02 Active Oxygen Therapy Adult [Oxygen Therapy] [RC] ASDIRECTED Care 12/02/20 02:13 Active RT Post Treatment Assessment [RC] Click to Edit Care 12/02/20 03:12 Active RT Pre-Treatment Assessment [RC] Click to Edit Care 12/02/20 03:12 Active Up With Assistance [RC] BID Care 12/02/20 01:25 Active NPO [Nothing Per Oral Diet] [DIET] Diet 12/02/20 Breakfast Active Abdomen Pelvis w Cont [CT] Stat Exams 12/01/20 20:27 Taken Ang Chest [CT] Stat Exams 12/01/20 21:29 Taken CULTURE BLOOD [BC] Stat Lab 12/01/20 21:03 Received CULTURE BLOOD [BC] Stat Lab 12/01/20 21:13 Received INR,PT,PROTHROMBIN TIME [COAG] AM Lab 12/03/20 05:11 Ordered INR,PT,PROTHROMBIN TIME [COAG] AM Lab 12/04/20 05:11 Ordered INR,PT,PROTHROMBIN TIME [COAG] AM Lab 12/05/20 05:11 Ordered INR,PT,PROTHROMBIN TIME [COAG] AM Lab 12/06/20 05:11 Ordered INR,PT,PROTHROMBIN TIME [COAG] AM Lab 12/07/20 05:11 Ordered INR,PT,PROTHROMBIN TIME [COAG] AM Lab 12/08/20 05:11 Ordered INR,PT,PROTHROMBIN TIME [COAG] AM Lab 12/09/20 05:11 Ordered INR,PT,PROTHROMBIN TIME [COAG] AM Lab 12/10/20 05:11 Ordered INR,PT,PROTHROMBIN TIME [COAG] AM Lab 12/11/20 05:11 Ordered INR,PT,PROTHROMBIN TIME [COAG] AM Lab 12/12/20 05:11 Ordered INR,PT,PROTHROMBIN TIME [COAG] AM Lab 12/13/20 05:11 Ordered INR,PT,PROTHROMBIN TIME [COAG] AM Lab 12/14/20 05:11 Ordered INR,PT,PROTHROMBIN TIME [COAG] AM Lab 12/15/20 05:11 Ordered INR,PT,PROTHROMBIN TIME [COAG] AM Lab 12/16/20 05:11 Ordered INR,PT,PROTHROMBIN TIME [COAG] AM Lab 12/17/20 05:11 Ordered INR,PT,PROTHROMBIN TIME [COAG] AM Lab 12/18/20 05:11 Ordered INR,PT,PROTHROMBIN TIME [COAG] AM Lab 12/19/20 05:11 Ordered INR,PT,PROTHROMBIN TIME [COAG] AM Lab 12/20/20 05:11 Ordered INR,PT,PROTHROMBIN TIME [COAG] AM Lab 12/21/20 05:11 Ordered INR,PT,PROTHROMBIN TIME [COAG] AM Lab 12/22/20 05:11 Ordered INR,PT,PROTHROMBIN TIME [COAG] AM Lab 12/23/20 05:11 Ordered INR,PT,PROTHROMBIN TIME [COAG] AM Lab 12/24/20 05:11 Ordered INR,PT,PROTHROMBIN TIME [COAG] AM Lab 12/25/20 05:11 Ordered INR,PT,PROTHROMBIN TIME [COAG] AM Lab 12/26/20 05:11 Ordered INR,PT,PROTHROMBIN TIME [COAG] AM Lab 12/27/20 05:11 Ordered INR,PT,PROTHROMBIN TIME [COAG] AM Lab 12/28/20 05:11 Ordered INR,PT,PROTHROMBIN TIME [COAG] AM Lab 12/29/20 05:11 Ordered INR,PT,PROTHROMBIN TIME [COAG] AM Lab 12/30/20 05:11 Ordered INR,PT,PROTHROMBIN TIME [COAG] AM Lab 12/31/20 05:11 Ordered INR,PT,PROTHROMBIN TIME [COAG] AM Lab 01/01/21 05:11 Ordered INR,PT,PROTHROMBIN TIME [COAG] AM Lab 01/02/21 05:11 Ordered INR,PT,PROTHROMBIN TIME [COAG] AM Lab 01/03/21 05:11 Ordered INR,PT,PROTHROMBIN TIME [COAG] AM Lab 01/04/21 05:11 Ordered INR,PT,PROTHROMBIN TIME [COAG] AM Lab 01/05/21 05:11 Ordered INR,PT,PROTHROMBIN TIME [COAG] AM Lab 01/06/21 05:11 Ordered INR,PT,PROTHROMBIN TIME [COAG] AM Lab 01/07/21 05:11 Ordered INR,PT,PROTHROMBIN TIME [COAG] AM Lab 01/08/21 05:11 Ordered INR,PT,PROTHROMBIN TIME [COAG] AM Lab 01/09/21 05:11 Ordered INR,PT,PROTHROMBIN TIME [COAG] AM Lab 01/10/21 05:11 Ordered INR,PT,PROTHROMBIN TIME [COAG] AM Lab 01/11/21 05:11 Ordered INR,PT,PROTHROMBIN TIME [COAG] AM Lab 01/12/21 05:11 Ordered INR,PT,PROTHROMBIN TIME [COAG] AM Lab 01/13/21 05:11 Ordered INR,PT,PROTHROMBIN TIME [COAG] AM Lab 01/14/21 05:11 Ordered INR,PT,PROTHROMBIN TIME [COAG] AM Lab 01/15/21 05:11 Ordered INR,PT,PROTHROMBIN TIME [COAG] AM Lab 01/16/21 05:11 Ordered INR,PT,PROTHROMBIN TIME [COAG] AM Lab 01/17/21 05:11 Ordered INR,PT,PROTHROMBIN TIME [COAG] AM Lab 01/18/21 05:11 Ordered INR,PT,PROTHROMBIN TIME [COAG] AM Lab 01/19/21 05:11 Ordered INR,PT,PROTHROMBIN TIME [COAG] AM Lab 01/20/21 05:11 Ordered INR,PT,PROTHROMBIN TIME [COAG] AM Lab 01/21/21 05:11 Ordered INR,PT,PROTHROMBIN TIME [COAG] AM Lab 01/22/21 05:11 Ordered INR,PT,PROTHROMBIN TIME [COAG] AM Lab 01/23/21 05:11 Ordered INR,PT,PROTHROMBIN TIME [COAG] AM Lab 01/24/21 05:11 Ordered INR,PT,PROTHROMBIN TIME [COAG] AM Lab 01/25/21 05:11 Ordered INR,PT,PROTHROMBIN TIME [COAG] AM Lab 01/26/21 05:11 Ordered INR,PT,PROTHROMBIN TIME [COAG] AM Lab 01/27/21 05:11 Ordered INR,PT,PROTHROMBIN TIME [COAG] AM Lab 01/28/21 05:11 Ordered INR,PT,PROTHROMBIN TIME [COAG] AM Lab 01/29/21 05:11 Ordered INR,PT,PROTHROMBIN TIME [COAG] AM Lab 01/30/21 05:11 Ordered INR,PT,PROTHROMBIN TIME [COAG] AM Lab 01/31/21 05:11 Ordered INR,PT,PROTHROMBIN TIME [COAG] AM Lab 02/01/21 05:11 Ordered INR,PT,PROTHROMBIN TIME [COAG] AM Lab 02/02/21 05:11 Ordered INR,PT,PROTHROMBIN TIME [COAG] AM Lab 02/03/21 05:11 Ordered INR,PT,PROTHROMBIN TIME [COAG] AM Lab 02/04/21 05:11 Ordered INR,PT,PROTHROMBIN TIME [COAG] AM Lab 02/05/21 05:11 Ordered INR,PT,PROTHROMBIN TIME [COAG] AM Lab 02/06/21 05:11 Ordered INR,PT,PROTHROMBIN TIME [COAG] AM Lab 02/07/21 05:11 Ordered INR,PT,PROTHROMBIN TIME [COAG] AM Lab 02/08/21 05:11 Ordered INR,PT,PROTHROMBIN TIME [COAG] AM Lab 02/09/21 05:11 Ordered INR,PT,PROTHROMBIN TIME [COAG] AM Lab 02/10/21 05:11 Ordered INR,PT,PROTHROMBIN TIME [COAG] AM Lab 02/11/21 05:11 Ordered INR,PT,PROTHROMBIN TIME [COAG] AM Lab 02/12/21 05:11 Ordered INR,PT,PROTHROMBIN TIME [COAG] AM Lab 02/13/21 05:11 Ordered INR,PT,PROTHROMBIN TIME [COAG] AM Lab 02/14/21 05:11 Ordered INR,PT,PROTHROMBIN TIME [COAG] AM Lab 02/15/21 05:11 Ordered INR,PT,PROTHROMBIN TIME [COAG] AM Lab 02/16/21 05:11 Ordered INR,PT,PROTHROMBIN TIME [COAG] AM Lab 02/17/21 05:11 Ordered INR,PT,PROTHROMBIN TIME [COAG] AM Lab 02/18/21 05:11 Ordered INR,PT,PROTHROMBIN TIME [COAG] AM Lab 02/19/21 05:11 Ordered INR,PT,PROTHROMBIN TIME [COAG] AM Lab 02/20/21 05:11 Ordered INR,PT,PROTHROMBIN TIME [COAG] AM Lab 02/21/21 05:11 Ordered INR,PT,PROTHROMBIN TIME [COAG] AM Lab 02/22/21 05:11 Ordered INR,PT,PROTHROMBIN TIME [COAG] AM Lab 02/23/21 05:11 Ordered INR,PT,PROTHROMBIN TIME [COAG] AM Lab 02/24/21 05:11 Ordered INR,PT,PROTHROMBIN TIME [COAG] AM Lab 02/25/21 05:11 Ordered INR,PT,PROTHROMBIN TIME [COAG] AM Lab 02/26/21 05:11 Ordered INR,PT,PROTHROMBIN TIME [COAG] AM Lab 02/27/21 05:11 Ordered INR,PT,PROTHROMBIN TIME [COAG] AM Lab 02/28/21 05:11 Ordered INR,PT,PROTHROMBIN TIME [COAG] AM Lab 03/01/21 05:11 Ordered INR,PT,PROTHROMBIN TIME [COAG] AM Lab 03/02/21 05:11 Ordered INR,PT,PROTHROMBIN TIME [COAG] AM Lab 03/03/21 05:11 Ordered INR,PT,PROTHROMBIN TIME [COAG] AM Lab 03/04/21 05:11 Ordered INR,PT,PROTHROMBIN TIME [COAG] AM Lab 03/05/21 05:11 Ordered INR,PT,PROTHROMBIN TIME [COAG] AM Lab 03/06/21 05:11 Ordered INR,PT,PROTHROMBIN TIME [COAG] AM Lab 03/07/21 05:11 Ordered INR,PT,PROTHROMBIN TIME [COAG] AM Lab 03/08/21 05:11 Ordered INR,PT,PROTHROMBIN TIME [COAG] AM Lab 03/09/21 05:11 Ordered INR,PT,PROTHROMBIN TIME [COAG] AM Lab 03/10/21 05:11 Ordered Albuterol [Proventil HFA] Med 12/02/20 03:10 Active 0 gm INH Q6H PRN Aspirin [Halfprin] Med 12/02/20 09:00 Active 81 mg PO DAILY Metoprolol Succinate [Toprol XL] Med 12/02/20 09:00 Active 100 mg PO DAILY Mometasone/Formoterol [Dulera 200-5 MCG] Med 12/02/20 09:00 Active 2 puff IH BID Ondansetron [Zofran] Med 12/02/20 01:27 Active 4 mg IVPUSH Q6HR PRN Pharmacy to Dose - Warfarin Med 12/02/20 03:15 Active 1 dose .XX ASDIRECTED PRN Piperacillin/Tazobactam [Piperacil-Tazobact] 4.5 gm Med 12/02/20 12:00 Active Sodium Chloride 0.9% [Normal Saline] 100 ml IV Q8H Sodium Chloride 0.9% [Normal Saline] 1,000 ml Med 12/02/20 01:30 Active IV ASDIRECTED Tiotropium [place] [Spiriva Respimat] Med 12/02/20 09:00 Active 0 gm INH DAILY Blood Culture x2 Reflex Set [OM.PC] Stat Oth 12/01/20 20:32 Ordered Resuscitation Status Routine Resus Stat 12/02/20 01:23 Ordered EKG 12 Lead [EK] Stat Ther 12/01/20 20:06 Ordered Medication Orders Albuterol (Proventil Hfa) 0 gm INH Q6H PRN PRN Reason: Shortness of Breath Aspirin (Halfprin) 81 mg PO DAILY [facility] Last Admin: 12/02/20 08:15 Dose: 81 mg Documented by: LYUBOV Sodium Chloride (Normal Saline) 1,000 mls @ 150 mls/hr IV ASDIRECTED KWADWO Last Admin: 12/02/20 04:24 Dose: 150 mls/hr Documented by: JAMMIE Piperacillin Sod/Tazobactam (Sod 4.5 gm/ Sodium Chloride) 100 mls @ 25 mls/hr IV Q8H [facility] Metoprolol Succinate (Toprol Xl) 100 mg PO DAILY [facility] Last Admin: 12/02/20 08:16 Dose: Not Given Documented by: LYUBOV Mometasone Furoate/Formoterol Fumar (Dulera 200-5 Mcg) 2 puff IH BID KWADWO Ondansetron HCl (Zofran) 4 mg IVPUSH Q6HR PRN PRN Reason: Nausea/Vomiting Tiotropium [place] (Spiriva Respimat) 0 gm INH DAILY [facility] Warfarin Sodium (Pharmacy To Dose - Warfarin) 1 dose .XX ASDIRECTED PRN PRN Reason: RX TO DOSE WARFARIN Assessment/Plan Comment:: Assessment - Day of admission: 12/02/2020 * 75 Yo male presents to ED with 2 week history of generalized weakness, dyspnea at rest, LLQ ab pain, nausea, vomiting, and cough * Denies fever, orthopnea, constipation, diarrhea, or urinary symptoms. * On 2L of oxygen in ED (baseline) with saturations of 97% * History of A-fib, HLD, HTN, COPD, Arthritis, Prostate cancer receiving Ctx and Rtx, Port-a-cath in right chest, porcine aortic and mitral valve replacement in 04/09/2014. Former smoker * 12-lead EKG in ED: Alternating a-fib and sinus rhythm wit tachycardia at 104 bpm. Variable p-waves and late transition noted with prolonged QTc. No change from 09/08/2018 * Labs: * WBC 0.07 * Hgb 8.6 * Plt 178 * INR 1.39 * D-Dimer 2.98 * Sodium 137-->138 * Potassium 3.6-->3.2 * Anion gap 9.6-->11.2 * BUN 25-->21 * Creatinine 1.0-->1.0 * GFR >60--> Greater than 60 * Calcium 7.4 (corrected 8.1)-->6.0 (corrected 7.3) * Bilirubin 2.3 * AST 29, ALT 29, Alk Phos 259 * Troponin I 0.119-->0.140 * Albumin 3.1-->2.4 * Lipase 126 * TSH 1.967 * ABG: Left radial, pH 7.47, PCO2 4 3.7, PO2 of 94, HCO3 of 31.2, O2 saturation 98.0, base excess 7.2, A-a gradient 51 * Lactic acid 1.2 * Influenza A, B, and SARS-CoV-2 RNA: Negative * ANC calculated at 70 * CXR in ED: Enlarged heart, Prosthetic heart valves, sternotomy and right sided port is noted; Nothing acute * CT of abdomen and pelvis in ED: * 1. Findings compatible with mild diverticulitis. * 2. Findings compatible with osseous metastatic disease. Retroperitoneal adenopathy is seen with adenopathy continuing along the left iliac chain. Slightly prominent lymph node within the left inguinal region is seen. These are most likely metastatic. * 3. Bladder wall thickening with small bladder diverticulum. Consider bladder ultrasound to further evaluate if clinical etiology is not known. * 4. Other findings as noted above which are nonacute. * CT angiogram of the chest in ED * 1. No findings of pulmonary embolism. * 2. Mild mediastinal adenopathy is seen. Several slightly prominent lymph nodes within the upper retroperitoneum at the diaphragmatic margin are seen. Diffuse osseous sclerotic metastatic changes seen throughout the osseous structures. * 3. Emphysematous change. No acute parenchymal process is seen. * Given Levaquin 750mg and Flagyl in ED * Patient is admitted to medical surgical floor on telemetry. * Dr. Zelaya on vacation. Discussed case with Coco Cottrell NP who recommended Granix, Claritin and Pepcid * Has follow-up appointment scheduled already on 12/15/20 prior to next infusion PLAN: Diverticulitis * Blood cultures pending * Stop Levaquin and Metronidazole * Start Zosyn * Advance diet to full liquids. Advance as tolerated * Antiemetics as indicated * Monitor vital signs * IV fluids as ordered Metastatic neoplasm Prostate cancer Severe neutropenia Port-A-Cath in place Generalized weakness * Access port * Neutropenic isolation * PT/OT * Obtain oncology notes * Monitor for fever * Discussed with oncology: will give Granix now and start daily Claritin and Pepcid for symptom reduction * CM/SW * Follow-up with oncology after discharge (has appt scheduled for 12/15/2020 Atrial fibrillation Elevated troponin Subtherapeutic international normalized ratio (INR) History of aortic valve replacement with porcine valve History of mitral valve replacement with porcine valve * Follow INR * Pharmacy to dose warfarin * Bridge with Lovenox * Trend troponin Hypokalemia Hypoalbuminemia Hypocalcemia * Supplement potassium * Dietary consultation * Check vitamin D * Correct calcium calculation due to low albumin * Obtain ionized calcium * Supplement calcium with Tums BID AC Metabolic alkalosis COPD (chronic obstructive pulmonary disease) with emphysema Former smoker * O2 as needed (Baseline 2L) * PRN albuterol * Continue home respiratory medications Code status: DNR/DNI PCP: Jones Mchugh NP Herbicide Sprayer: Dr. Garcia Oncologist: Dr. Zelaya DVT prophylaxis: Lovenox bridging until INR is therapeutic with warfarin Disposition: Admit to medical floor on telemetry for management of diverticulitis, subtherapeutic INR, and further discussion on metastatic disease. Prognosis: Poor overall given multiple metastatic findings - Mortality Measure Prognosis:: Poor
[2020-12-02] MEDS: Tiotropium Bromide 4 GM Inhalation Spray (2.5mcg/1 dose; 10 doses) INH SCH (08:40)
[2020-12-02] MEDS: Formoterol/Mometasone 200-5 MCG 8.8 GM Inhaler IH SCH ×2 (08:40→20:27)
--- NOTE | 2020-12-02 08:44 | CT ---
CT abdomen and pelvis Technique: Multiple axial sections were obtained from above the dome of the diaphragm inferiorly through the pubic symphysis. Intravenous and oral contrast was utilized. Delayed images were also obtained through the bladder. Reconstructed coronal and sagittal images were obtained. Comparison: No prior abdominal imaging is available. Findings: Visualized lung bases show nothing definitely acute. Heart is enlarged. Liver shows no focal parenchymal abnormality. Spleen appears within normal limits. Gallbladder shows minimal intraluminal abnormality most likely representing a small gallstone. Pancreas is normal. Cysts are noted within both kidneys. Largest cyst is on the right side and measures about 3.6 cm. Aorta shows no aneurysm. Atherosclerotic change is appreciated. There is adenopathy within the upper retroperitoneum as well as other areas of the retroperitoneum. Slight adenopathy is also noted around the left iliac arteries. Small fat-containing bilateral inguinal hernias are noted. Slightly prominent lymph node is seen within the left inguinal region measuring 1.0 cm. There is slight inflammatory type change seen around the sigmoid colon in an area of diverticulitis most likely due to mild diverticulosis. Bone window settings were reviewed which show numerous ostial sclerotic lesions throughout the spine as well as within the pelvis and within both sides of the hip. Bladder shows mild wall thickening with mild bladder diverticuli. Calcifications are noted within the prostate gland. Impression: 1. Findings compatible with mild diverticulitis. 2. Findings compatible with osseous metastatic disease. Retroperitoneal adenopathy is seen with adenopathy continuing along the left iliac chain. Slightly prominent lymph node within the left inguinal region is seen. These are most likely metastatic. 3. Bladder wall thickening with small bladder diverticulum. Consider bladder ultrasound to further evaluate if clinical etiology is not known. 4. Other findings as noted above which are nonacute. Diagnostic code #9 I agree with preliminary report from [facility], finalized on 12/01/20, 11:58 PM BOTTLE SELECTOR
[2020-12-02] MEDS ORDERED: TIOTROPIUM INH SCH (09:00)
[2020-12-02] MEDS ORDERED: Non-Formulary Medication 1 Each (Budesonide/Formoterol 2 PUFF) INH SCH (09:00)
--- NOTE | 2020-12-02 09:03 | CT ---
CT chest Technique: Multiple axial sections through the chest were obtained. Intravenous contrast was utilized. Study was performed as a pulmonary angiogram protocol. Comparison: No prior CT chest study is available, prior chest x-ray performed earlier on the same day is available. Findings: Pulmonary arteries show no filling defects to indicate pulmonary embolism. Aorta shows atherosclerotic change with no findings being seen to indicate thoracic aneurysm. Mild mediastinal adenopathy is definitely appreciated. Previous sternotomy is noted. Right-sided infusion port is seen. 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 Heart is mildly enlarged. There are several slightly enlarged lymph nodes in the upper retroperitoneum at the diaphragmatic margin. Diffuse emphysematous change is present. No acute parenchymal process is appreciated within either lung. Bone window settings show diffuse osteosclerotic abnormalities within the sternum, spine and ribs which are compatible with multiple metastasis. Impression: 1. No findings of pulmonary embolism. 2. Mild mediastinal adenopathy is seen. Several slightly prominent lymph nodes within the upper retroperitoneum at the diaphragmatic margin are seen. Diffuse osteosclerotic metastatic change is seen throughout the osseous structures. 3. Emphysematous change. No acute parenchymal process is seen. Diagnostic code #9 I agree with preliminary report from [facility], finalized on 12/02/20, 12:04 AM OUTREACH ANALYST
[2020-12-02 09:35] LABS: VITAMIN D,25-HYDROXY 30.4 ng/ml (30.0-100.0)
[2020-12-02] MEDS: Piperacillin/Tazobactam 4.5 GM in Sodium Chloride 0.9% 100 ML IV SCH ×2 (11:54→21:20)
[2020-12-02] MEDS ORDERED: Acetaminophen 325 MG Tab PO PRN (11:58)
[2020-12-02] MEDS: Potassium Chloride 20 MEQ Tab.ER PO SCH ×2 (12:05→21:19)
[2020-12-02] MEDS: Enoxaparin 60 MG/0.6 ML Syringe SUBCUT SCH ×2 (12:06→22:13)
[2020-12-02] MEDS ORDERED: Calcium Carbonate 500 MG Tab.Chew PO SCH (12:30)
[2020-12-02] MEDS ORDERED: Metoprolol Tartrate 5 MG/5 ML SDV IVPUSH PRN (14:39)
[2020-12-02] MEDS ORDERED: Metoprolol Tartrate 5 MG in Sodium Chloride 0.9% 50 ML IV ONE (14:39)
[2020-12-02] MEDS ORDERED: Sodium Chloride 0.9% 500 ML IV ONE (14:40)
[2020-12-02] MEDS ORDERED: Metoprolol Succinate 50 MG Tab.ER PO ONE (14:40)
[2020-12-02] MEDS ORDERED: Metoprolol Tartrate 5 MG/5 ML SDV IVPUSH ONE (14:45)
[2020-12-02] MEDS: Calcium Carbonate 500 MG Tab.Chew PO SCH (15:11)
[2020-12-02] MEDS ORDERED: Warfarin 3 MG Tab PO SCH (18:00)
[2020-12-02] MEDS: predniSONE 5 MG Tab PO SCH (19:36)
[2020-12-02] MEDS ORDERED: Levofloxacin/Dextrose 5%-Water 750 MG in Premix Bag 1 BAG IV SCH (22:00)
[2020-12-03] MEDS: Piperacillin/Tazobactam 4.5 GM in Sodium Chloride 0.9% 100 ML IV SCH ×4 (04:17→22:10)
[2020-12-03] MEDS: Calcium Carbonate 500 MG Tab.Chew PO SCH ×2 (05:56→15:36)
[2020-12-03] MEDS: predniSONE 5 MG Tab PO SCH ×2 (06:00→16:01)
[2020-12-03] MEDS: Albuterol/Ipratropium 3.0-0.5 MG/3 ML Neb Soln NEB PRN ×2 (07:13→21:17)
--- NOTE | 2020-12-03 07:15 | PCM.PN ---
- General Info Date of Service: 12/03/20 Admission Dx/Problem (Free Text): Admission Diagnosis/Problem Admission Diagnosis/Problem Diverticulitis Functional Status: Reports: Pain Controlled, Tolerating Diet (will advance ), Ambulating, Urinating. Denies: New Symptoms - Review of Systems General: Reports: No Symptoms, Weakness, Fatigue, Malaise. Denies: Fever, Chills HEENT: Reports: No Symptoms. Denies: Headaches, Sore Throat Pulmonary: Reports: Shortness of Breath, Wheezing. Denies: Cough, Sputum Cardiovascular: Reports: No Symptoms, Dyspnea on Exertion. Denies: Chest Pain, Palpitations, Edema, Lightheadedness Gastrointestinal: Reports: Abdominal Pain (improved LLQ), Diarrhea. Denies: Constipation, Nausea, Vomiting Genitourinary: Reports: No Symptoms. Denies: Pain Musculoskeletal: Reports: No Symptoms Skin: Reports: No Symptoms. Denies: Cyanosis Neurological: Reports: Weakness. Denies: Confusion, Dizziness, Numbness, Pre- Existing Deficit, Tingling, Difficulty Walking, Gait Disturbance Psychiatric: Reports: No Symptoms - Patient Data Vitals - Most Recent: Last Vital Signs Temp 97.6 F 12/03/20 04:00 Pulse 95 12/03/20 04:00 Resp 16 12/03/20 04:00 BP 100/70 12/03/20 04:00 Pulse Ox 98 12/03/20 04:00 Weight - Most Recent: 123 lb 4.8 oz I&O - Last 24 Hours: Intake & Output 12/02/20 12/03/20 12/03/20 22:59 06:59 14:59 Intake Total 995 1075 Output Total 500 650 Balance 495 425 Lab Results Last 24 Hours: Laboratory Results - last 24 hr 12/02/20 12/02/20 12/02/20 Range/Units 06:15 06:15 14:04 Magnesium 2.1 (1.8-2.4) mg/dl CK-MB (CK-2) 0.8 (0-3.6) ng/ml Troponin I 0.140 H* 0.140 H* (0.00-0.056) ng/mL Albumin 2.4 L (3.4-5.0) g/dl Vitamin D 25-Hydroxy 30.4 (30.0-100.0) ng/ml Pete Results Last 24 Hours: Microbiology 12/01/20 21:13 Aerobic Blood Culture - Preliminary Blood - Venous - Lab Draw NO GROWTH AFTER 1 DAY Anaerobic Blood Culture - Preliminary NO GROWTH AFTER 1 DAY 12/01/20 21:03 Aerobic Blood Culture - Preliminary Blood - Venous NO GROWTH AFTER 1 DAY Anaerobic Blood Culture - Preliminary NO GROWTH AFTER 1 DAY Med Orders - Current: Current Medications Acetaminophen (Tylenol) 650 mg PO Q6H PRN PRN Reason: Pain Albuterol (Proventil Hfa) 0 gm INH Q6H PRN PRN Reason: Shortness of Breath Albuterol/Ipratropium (Duoneb 3.0-0.5 Mg/3 Ml) 3 ml NEB Q6HRRT PRN PRN Reason: wheezing/SOB/cough Last Admin: 12/03/20 07:13 Dose: 3 ml Documented by: Aspirin (Halfprin) 81 mg PO DAILY [facility] Last Admin: 12/02/20 08:15 Dose: 81 mg Documented by: Calcium Carbonate/Glycine (Tums) 1,000 mg PO BIDAC [facility] Last Admin: 12/03/20 05:56 Dose: 1,000 mg Documented by: Enoxaparin Sodium (Lovenox) 50 mg SUBCUT Q12H [facility] Last Admin: 12/02/20 22:13 Dose: 50 mg Documented by: Famotidine (Pepcid) 20 mg PO DAILY [facility] Sodium Chloride (Normal Saline) 1,000 mls @ 150 mls/hr IV ASDIRECTED [facility] Last Admin: 12/02/20 11:50 Dose: 150 mls/hr Documented by: Piperacillin Sod/Tazobactam (Sod 4.5 gm/ Sodium Chloride) 100 mls @ 25 mls/hr IV Q8H [facility] Last Admin: 12/03/20 04:17 Dose: 25 mls/hr Documented by: Loratadine (Claritin) 10 mg PO DAILY [facility] Metoprolol Succinate (Toprol Xl) 100 mg PO DAILY [facility] Last Admin: 12/02/20 08:16 Dose: Not Given Documented by: Metoprolol Tartrate (Lopressor) 5 mg IVPUSH Q4H PRN PRN Reason: Tachycardia Mometasone Furoate/Formoterol Fumar (Dulera 200-5 Mcg) 2 puff IH BID [facility] Last Admin: 12/02/20 20:27 Dose: 2 puff Documented by: Multivitamins (Thera) 1 each PO DAILY [facility] Ondansetron HCl (Zofran) 4 mg IVPUSH Q6HR PRN PRN Reason: Nausea/Vomiting Casodex ( (Bicalutamide 50 Mg)) 0 each PO DAILY [facility] Potassium Chloride (Klor-Con M20) 40 meq PO BID [facility] Stop: 12/03/20 09:01 Last Admin: 12/02/20 21:19 Dose: 40 meq Documented by: Prednisone (Prednisone) 5 mg PO BIDMEALS [facility] Last Admin: 12/03/20 06:00 Dose: 5 mg Documented by: Senna/Docusate Sodium (Senna Plus) 1 tab PO BID [facility] Last Admin: 12/02/20 21:26 Dose: Not Given Documented by: Tiotropium [place] (Spiriva Respimat) 0 gm INH DAILY [facility] Last Admin: 12/02/20 08:40 Dose: 4 gm Documented by: Warfarin Sodium (Pharmacy To Dose - Warfarin) 1 dose .XX ASDIRECTED PRN PRN Reason: RX TO DOSE WARFARIN Discontinued Medications Calcium Carbonate/Glycine (Tums) 1,000 mg PO DAILY [facility] Sodium Chloride (Normal Saline) 1,000 mls @ 150 mls/hr IV ASDIRECTED [facility] Last Admin: 12/01/20 20:46 Dose: 150 mls/hr Documented by: Levofloxacin/Dextrose 750 mg/ (Premix) 150 mls @ 100 mls/hr IV ONETIME STA Stop: 12/01/20 23:26 Last Admin: 12/01/20 22:45 Dose: 100 mls/hr Documented by: Metronidazole 500 mg/ Premix 100 mls @ 100 mls/hr IV ONETIME ONE Stop: 12/02/20 00:26 Last Admin: 12/01/20 23:45 Dose: 100 mls/hr Documented by: Metronidazole 500 mg/ Premix 100 mls @ 100 mls/hr IV Q8H [facility] Levofloxacin/Dextrose 750 mg/ (Premix) 150 mls @ 100 mls/hr IV Q24H [facility] Piperacillin Sod/Tazobactam (Sod 4.5 gm/ Sodium Chloride) 100 mls @ 200 mls/hr IV ONETIME ONE Stop: 12/02/20 03:38 Last Admin: 12/02/20 03:42 Dose: 200 mls/hr Documented by: Sodium Chloride (Normal Saline) 500 mls @ 999 mls/hr IV .BOLUS ONE Stop: 12/02/20 15:10 Last Admin: 12/02/20 14:59 Dose: 999 mls/hr Documented by: Metoprolol Succinate (Toprol Xl) 50 mg PO ONETIME ONE Stop: 12/02/20 14:41 Last Admin: 12/02/20 15:02 Dose: 50 mg Documented by: Metoprolol Tartrate (Lopressor) 5 mg IVPUSH ONETIME ONE Stop: 12/02/20 14:46 Last Admin: 12/02/20 15:01 Dose: 5 mg Documented by: Ondansetron HCl (Zofran) 4 mg IVPUSH ONETIME ONE Stop: 12/01/20 20:28 Last Admin: 12/01/20 20:46 Dose: 4 mg Documented by: Tbo-Filgrastim (Granix) 270 mcg SQ ONETIME ONE Stop: 12/02/20 13:01 Last Admin: 12/02/20 14:05 Dose: 270 mcg Documented by: Tramadol HCl (Ultram) 50 mg PO ONETIME ONE Stop: 12/02/20 01:43 Last Admin: 12/02/20 02:19 Dose: 50 mg Documented by: Warfarin Sodium (Coumadin) 3 mg PO QPM [facility] Stop: 12/02/20 18:01 Last Admin: 12/02/20 19:36 Dose: 3 mg Documented by: - Exam Quality Assessment: Supplemental Oxygen (2L), DVT Prophylaxis General: Alert, Oriented, Cooperative, No Acute Distress HEENT: Pupils Equal, Pupils Reactive, Mucous Membr. Moist/[place] Neck: Supple, Trachea Midline Lungs: Normal Respiratory Effort, Rhonchi, Wheezing Cardiovascular: Regular Rate, Regular Rhythm GI/Abdominal Exam: Normal Bowel Sounds, Soft, No Distention, Tender (Mild LLQ ) (Male) Exam: Deferred Extremities: Normal Inspection, Normal Range of Motion, Non-Tender, No Pedal Edema, Normal Capillary Refill Skin: Warm, Dry, Intact Neurological: No New Focal Deficit Psy/Mental Status: Alert, Normal Affect, Normal Mood Sepsis Event Note - Evaluation Sepsis Screening Result: No Definite Risk - Focused Exam Vital Signs: Vital Signs Temp Temp Pulse Pulse Resp BP BP 12/03/20 04:00 97.6 F 95 16 100/70 12/02/20 21:30 99.0 F 103 H 14 115/61 12/02/20 20:30 Pulse Ox Pulse Ox 12/03/20 04:00 98 12/02/20 21:30 95 12/02/20 20:30 90 L - Problem List & Annotations (1) Metastatic neoplasm SNOMED Code(s): 263412539 Code(s): C79.9 - SECONDARY MALIGNANT NEOPLASM OF UNSPECIFIED SITE Status: Acute Priority: High Current Visit: Yes Qualifiers: Area of secondary neoplastic involvement: unspecified site Qualified Code(s): C79.9 - Secondary malignant neoplasm of unspecified site (2) Atrial fibrillation SNOMED Code(s): 44240399 Code(s): I48.91 - UNSPECIFIED ATRIAL FIBRILLATION Status: Chronic Priority: Medium Current Visit: No Qualifiers: Atrial fibrillation type: paroxysmal Qualified Code(s): I48.0 - Paroxysmal atrial fibrillation (3) Diverticulitis SNOMED Code(s): 504693256 Code(s): K57.92 - DVTRCLI OF INTEST, PART UNSP, W/O PERF OR ABSCESS W/O BLEED Status: Acute Priority: High Current Visit: Yes (4) Elevated troponin SNOMED Code(s): 458869309, 273196202, 967484291 Code(s): R77.8 - OTHER SPECIFIED ABNORMALITIES OF PLASMA PROTEINS Status: Acute Priority: High Current Visit: Yes (5) Metabolic alkalosis SNOMED Code(s): 6314680 Code(s): E87.3 - ALKALOSIS Status: Acute Priority: High Current Visit: Yes (6) Prostate cancer SNOMED Code(s): 796624234 Code(s): C61 - MALIGNANT NEOPLASM OF PROSTATE Status: Chronic Priority: High Current Visit: Yes (7) Severe neutropenia SNOMED Code(s): 183320130 Code(s): D70.9 - NEUTROPENIA, UNSPECIFIED Status: Acute Priority: High Current Visit: Yes (8) Subtherapeutic international normalized ratio (INR) SNOMED Code(s): 749251123, 139652477 Code(s): R79.1 - ABNORMAL COAGULATION PROFILE Status: Acute Priority: High Current Visit: Yes (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 SNOMED Code(s): 43551866 Code(s): J43.9 - EMPHYSEMA, UNSPECIFIED Status: Chronic Priority: Medium Current Visit: No Qualifiers: Emphysema type: panlobular Qualified Code(s): J43.1 - Panlobular emphysema (10) Port-A-Cath in place SNOMED Code(s): 722037737 Code(s): Z95.828 - PRESENCE OF OTHER VASCULAR IMPLANTS AND GRAFTS Status: Chronic Priority: Medium Current Visit: No (11) History of aortic valve replacement with porcine valve SNOMED Code(s): 02760361004215, 127891851, 65985580901547 Code(s): Z95.3 - PRESENCE OF XENOGENIC HEART VALVE Status: Chronic Priority: Low Current Visit: No (12) History of mitral valve replacement with porcine valve SNOMED Code(s): 67075763325364 Code(s): Z95.3 - PRESENCE OF XENOGENIC HEART VALVE Status: Chronic Priority: Low Current Visit: No (13) Former smoker SNOMED Code(s): 5840088 Code(s): Z87.891 - PERSONAL HISTORY OF NICOTINE DEPENDENCE Status: Chronic Priority: Low Current Visit: No (14) Hypokalemia SNOMED Code(s): 01108596 Code(s): E87.6 - HYPOKALEMIA Status: Acute Priority: High Current Visit: Yes (15) Hypoalbuminemia SNOMED Code(s): 182006276 Code(s): E88.09 - OTH DISORDERS OF PLASMA-PROTEIN METABOLISM, NEC Status: Acute Priority: High Current Visit: Yes (16) Generalized weakness SNOMED Code(s): 42340286 Code(s): R53.1 - WEAKNESS Status: Acute Priority: High Current Visit: Yes (17) Hypocalcemia SNOMED Code(s): 3904990 Code(s): E83.51 - HYPOCALCEMIA Status: Acute Priority: High Current Visit: Yes (18) Anemia SNOMED Code(s): 769170558 Code(s): D64.9 - ANEMIA, UNSPECIFIED Status: Acute Priority: High Current Visit: Yes Qualifiers: Anemia type: unspecified type Qualified Code(s): D64.9 - Anemia, unspecified (19) Hypotension SNOMED Code(s): 05628709 Code(s): I95.9 - HYPOTENSION, UNSPECIFIED Status: Chronic Priority: Medium Current Visit: Yes Qualifiers: Hypotension type: unspecified hypotension type Qualified Code(s): I95.9 - Hypotension, unspecified - Problem List Review Problem List Initiated/Reviewed/Updated: Yes - My Orders Last 24 Hours: My Active Orders 12/02/20 08:38 Nurse Communication: Isolation [RC] ASDIRECTED Isolation [COMM] Routine 12/02/20 09:00 Potassium Chloride [Klor-Con M20] 40 meq PO BID 12/02/20 Lunch Full Liquid Diet [DIET] Neutropenic [DIET] Enoxaparin [Lovenox] 50 mg SUBCUT Q12H 12/02/20 11:21 Consult to Case Management/Nuclear Plant Instrument Technician [CONS] Routine Consult to Manager Rfid [CONS] Routine 12/02/20 11:58 Acetaminophen [TylenoL] 650 mg PO Q6H PRN 12/02/20 13:01 RT Aerosol Therapy [RC] ASDIRECTED Albuterol/Ipratropium [DuoNeb 3.0-0.5 MG/3 ML] 3 ml NEB Q6HRRT PRN 12/02/20 14:39 Metoprolol Tartrate [Lopressor] 5 mg IVPUSH Q4H PRN 12/02/20 16:00 Calcium Carbonate [Tums] 1,000 mg PO BIDAC 12/02/20 17:00 predniSONE 5 mg PO BIDMEALS 12/02/20 21:00 Docusate Sodium/Sennosides [Senna Plus] 1 tab PO BID 12/03/20 06:28 CBC WITH AUTO DIFF [HEME] AM CMP [COMPREHENSIVE METABOLIC PN,CMP] [CHEM] AM CRP [C-REACTIVE PROTEIN] [CHEM] AM MAGNESIUM [CHEM] AM TROPONIN I [CHEM] Routine 12/03/20 09:00 Famotidine [Pepcid] 20 mg PO DAILY Loratadine [Claritin] 10 mg PO DAILY Multivitamins,Therapeutic [Thera] 1 each PO DAILY Patient's Own Medication [Ptom] 0 each PO DAILY 12/04/20 05:11 CBC WITH AUTO DIFF [HEME] AM CMP [COMPREHENSIVE METABOLIC PN,CMP] [CHEM] AM CRP [C-REACTIVE PROTEIN] [CHEM] AM MAGNESIUM [CHEM] AM 12/05/20 05:11 CBC WITH AUTO DIFF [HEME] AM CMP [COMPREHENSIVE METABOLIC PN,CMP] [CHEM] AM CRP [C-REACTIVE PROTEIN] [CHEM] AM MAGNESIUM [CHEM] AM 12/06/20 05:11 CBC WITH AUTO DIFF [HEME] AM CMP [COMPREHENSIVE METABOLIC PN,CMP] [CHEM] AM CRP [C-REACTIVE PROTEIN] [CHEM] AM MAGNESIUM [CHEM] AM - Assessment Assessment:: Assessment - Day of admission: 12/02/2020 * 75 Yo male presents to ED with 2 week history of generalized weakness, dyspnea at rest, LLQ ab pain, nausea, vomiting, and cough * Denies fever, orthopnea, constipation, diarrhea, or urinary symptoms. * On 2L of oxygen in ED (baseline) with saturations of 97% * History of A-fib, HLD, HTN, COPD, Arthritis, Prostate cancer receiving Ctx and Rtx, Port-a-cath in right chest, porcine aortic and mitral valve replacement in 04/09/2014. Former smoker * 12-lead EKG in ED: Alternating a-fib and sinus rhythm wit tachycardia at 104 bpm. Variable p-waves and late transition noted with prolonged QTc. No change from 09/08/2018 * Labs: * WBC 0.07 * Hgb 8.6 * Plt 178 * INR 1.39 * D-Dimer 2.98 * Sodium 137-->138 * Potassium 3.6-->3.2 * Anion gap 9.6-->11.2 * BUN 25-->21 * Creatinine 1.0-->1.0 * GFR >60--> Greater than 60 * Calcium 7.4 (corrected 8.1)-->6.0 (corrected 7.3) * Bilirubin 2.3 * AST 29, ALT 29, Alk Phos 259 * Troponin I 0.119-->0.140 * Albumin 3.1-->2.4 * Lipase 126 * TSH 1.967 * ABG: Left radial, pH 7.47, PCO2 4 3.7, PO2 of 94, HCO3 of 31.2, O2 saturation 98.0, base excess 7.2, A-a gradient 51 * Lactic acid 1.2 * Influenza A, B, and SARS-CoV-2 RNA: Negative * ANC calculated at 70 * CXR in ED: Enlarged heart, Prosthetic heart valves, sternotomy and right sided port is noted; Nothing acute * CT of abdomen and pelvis in ED: * 1. Findings compatible with mild diverticulitis. * 2. Findings compatible with osseous metastatic disease. Retroperitoneal adenopathy is seen with adenopathy continuing along the left iliac chain. Slightly prominent lymph node within the left inguinal region is seen. These are most likely metastatic. * 3. Bladder wall thickening with small bladder diverticulum. Consider bladder ultrasound to further evaluate if clinical etiology is not known. * 4. Other findings as noted above which are nonacute. * CT angiogram of the chest in ED * 1. No findings of pulmonary embolism. * 2. Mild mediastinal adenopathy is seen. Several slightly prominent lymph nodes within the upper retroperitoneum at the diaphragmatic margin are seen. Diffuse osseous sclerotic metastatic changes seen throughout the osseous structures. * 3. Emphysematous change. No acute parenchymal process is seen. * Given Levaquin 750mg and Flagyl in ED * Patient is admitted to medical surgical floor on telemetry. * Dr. Zelaya on vacation. Discussed case with Coco Cottrell NP who recommended Granix, Claritin and Pepcid * Has follow-up appointment scheduled already on 12/15/20 prior to next infusion 12/03/2020 * Reports abdomen feels better today * Advance diet to neutropenic regular * Continue IV Zosyn * Given Granix yesterday * Obtain procalcitonin * Remains on 2L * Labs: * WBC 1.83 * Hgb 6.7 * Hct 22.0 * Absolute neutrophils 0.94 * INR 1.72 * Sodium 139 * Potassium 4.2 * GFR >60 * Calcium 6.1 * Bilirubin 1.4 * Troponin 0.114 * CRP 24.6 * Give 2 units PRBC with 20mg lasix between * Give 20mg lasix now * Checking occult stool * Drop in Hgb is likely 2/2 IV rehydration and baseline anemia 2/2 chemotherapy. No current signs of active bleeding. - Plan Plan:: Diverticulitis * Blood cultures negative thus far * Continue Zosyn * Advance diet to regular with neutropenic precautions * Antiemetics as indicated * Monitor vital signs * Discontinue IV fluids Metastatic neoplasm Prostate cancer Severe neutropenia Port-A-Cath in place Generalized weakness Anemia Hypotension * Access port * Neutropenic isolation * PT/OT * Obtain oncology notes * Monitor for fever * Discussed with oncology: gave Granix 12/02/20 and started daily Claritin and Pepcid for symptom reduction * CM/SW * Follow-up with oncology after discharge (has appt scheduled for 12/15/2020 * Transfuse 2 units PRBC with 20mg lasix between * 20mg IVP lasix now * Check occult stool Atrial fibrillation Elevated troponin, improved Subtherapeutic international normalized ratio (INR) History of aortic valve replacement with porcine valve History of mitral valve replacement with porcine valve * Follow INR * Pharmacy to dose warfarin * Bridge with Lovenox Hypokalemia, resolved Hypoalbuminemia Hypocalcemia * Dietary consultation * Correct calcium calculation due to low albumin * Obtain ionized calcium * Supplement calcium with Tums BID AC Metabolic alkalosis COPD (chronic obstructive pulmonary disease) with emphysema Former smoker * O2 as needed (Baseline 2L) * PRN albuterol * Continue home respiratory medications Code status: DNR/DNI PCP: Jones Mchugh NP Toy Assembly Supervisor: Dr. Garcia Oncologist: Dr. Zelaya DVT prophylaxis: Lovenox bridging until INR is therapeutic with warfarin Disposition: Admit to medical floor on telemetry for management of diverticulitis, subtherapeutic INR, and further discussion on metastatic disease. Prognosis: Poor overall given multiple metastatic findings
[2020-12-03] MEDS: Formoterol/Mometasone 200-5 MCG 8.8 GM Inhaler IH SCH ×2 (08:33→21:08)
[2020-12-03] MEDS: Tiotropium Bromide 4 GM Inhalation Spray (2.5mcg/1 dose; 10 doses) INH SCH (08:33)
[2020-12-03] MEDS ORDERED: Sodium Chloride 0.9% 250 ML IV SCH (08:45)
[2020-12-03] MEDS ORDERED: Furosemide 20 MG/2 ML VIAL IVPUSH ONE (08:57)
[2020-12-03] MEDS ORDERED: CASODEX PO SCH (09:00)
[2020-12-03] MEDS: Loratadine 10 MG Tab PO SCH (09:16)
[2020-12-03] MEDS: Aspirin 81 MG Tab.EC PO SCH (09:16)
[2020-12-03] MEDS: Famotidine 20 MG Tab PO SCH (09:17)
[2020-12-03] MEDS: Multivitamins,Therapeutic Tab PO SCH (09:17)
[2020-12-03] MEDS: Enoxaparin 60 MG/0.6 ML Syringe SUBCUT SCH ×2 (09:18→20:25)
[2020-12-03] MEDS ORDERED: Furosemide 20 MG/2 ML VIAL IVPUSH SCH (09:45)
[2020-12-03] MEDS: Metoprolol Succinate 50 MG Tab.ER PO SCH (10:35)
[2020-12-03] MEDS ORDERED: Warfarin 3 MG Tab PO SCH (18:00)
[2020-12-03] MEDS ORDERED: Benzocaine/Cetylpyridinium/Menthol Lozenge MUCMEM PRN (23:59)
[2020-12-04] MEDS: Piperacillin/Tazobactam 4.5 GM in Sodium Chloride 0.9% 100 ML IV SCH ×3 (06:40→22:13)
[2020-12-04] MEDS: predniSONE 5 MG Tab PO SCH ×2 (06:40→18:14)
[2020-12-04] MEDS: Calcium Carbonate 500 MG Tab.Chew PO SCH ×2 (06:40→15:12)
[2020-12-04] MEDS: Formoterol/Mometasone 200-5 MCG 8.8 GM Inhaler IH SCH ×2 (08:07→20:27)
[2020-12-04] MEDS: Tiotropium Bromide 4 GM Inhalation Spray (2.5mcg/1 dose; 10 doses) INH SCH (08:09)
[2020-12-04] MEDS: Loratadine 10 MG Tab PO SCH (08:52)
[2020-12-04] MEDS: Metoprolol Succinate 50 MG Tab.ER PO SCH (08:52)
[2020-12-04] MEDS: Multivitamins,Therapeutic Tab PO SCH (08:52)
[2020-12-04] MEDS: Aspirin 81 MG Tab.EC PO SCH (08:52)
[2020-12-04] MEDS: Famotidine 20 MG Tab PO SCH (08:52)
[2020-12-04] MEDS: Enoxaparin 60 MG/0.6 ML Syringe SUBCUT SCH ×2 (08:54→20:01)
[2020-12-04] MEDS: CASODEX PO SCH (09:50)
[2020-12-04] MEDS: Albuterol/Ipratropium 3.0-0.5 MG/3 ML Neb Soln NEB PRN ×2 (13:14→20:27)
[2020-12-04] MEDS ORDERED: Warfarin 3 MG Tab PO SCH (18:00)
--- NOTE | 2020-12-04 19:23 | PCM.PN ---
- General Info Date of Service: 12/04/20 Admission Dx/Problem (Free Text): Admission Diagnosis/Problem Admission Diagnosis/Problem Diverticulitis Subjective Update: Called to bedside because patient suddenly became short of breath requiring 15 L of simple mask to keep oxygen saturations around 90%. Patient was tachypneic and tachycardic. Blood gas was consistent with hypercarbia and hypoxemia. Prior to this patient was doing well. His white count increased appropriately and appetite was improving. Denied any chest pain, nausea, vomiting, productive sputum. He is on Zosyn for Functional Status: Reports: Pain Controlled - Review of Systems General: Reports: Fatigue HEENT: Reports: No Symptoms Pulmonary: Reports: Shortness of Breath Cardiovascular: Reports: No Symptoms Gastrointestinal: Reports: No Symptoms Musculoskeletal: Reports: No Symptoms Psychiatric: Reports: No Symptoms - Patient Data Vitals - Most Recent: Last Vital Signs Temp 97.3 F 12/04/20 15:15 Pulse 104 H 12/04/20 15:15 Resp 20 12/04/20 15:15 BP 111/72 12/04/20 15:15 Pulse Ox 92 L 12/04/20 15:15 Weight - Most Recent: 125 lb 8 oz I&O - Last 24 Hours: Intake & Output 12/04/20 12/04/20 12/04/20 06:59 14:59 22:59 Intake Total 700 600 750 Output Total 525 300 Balance 175 600 450 Imaging Impressions - Last 24 Hours: Chest x-ray shows pulmonary edema Lab Results Last 24 Hours: Laboratory Results - last 24 hr 12/03/20 12/04/20 12/04/20 Range/Units 06:28 04:30 04:30 WBC 6.61 (4.23-9.07) K/mm3 RBC 3.31 L (4.63-6.08) M/mm3 Hgb 9.5 L D (13.7-17.5) gm/dl Hct 29.7 L (40.1-51.0) % MCV 89.7 (79.0-92.2) fl MCH 28.7 (25.7-32.2) pg MCHC 32.0 L (32.2-35.5) g/dl RDW Std Deviation 53.4 H (35.1-43.9) fL Plt Count 190 (163-337) K/mm3 MPV 9.4 (9.4-12.3) fl Neut % (Auto) 70.7 H (34.0-67.9) % Lymph % (Auto) 8.5 L (21.8-53.1) % [place] % (Auto) 11.3 (5.3-12.2) % Eos % (Auto) 0 L (0.8-7.0) Baso % (Auto) 0.3 (0.1-1.2) % Neut # (Auto) 4.67 (1.78-5.38) K/mm3 Lymph # (Auto) 0.56 L (1.32-3.57) K/mm3 [place] # (Auto) 0.75 (0.30-0.82) K/mm3 Eos # (Auto) 0.00 L (0.04-0.54) K/mm3 Baso # (Auto) 0.02 (0.01-0.08) K/mm3 Manual Slide Review Abnormal smear PT 18.6 H (9.7-12.0) SECONDS INR 1.76 D-Dimer, Quantitative (0.19-0.50) mg/L Puncture Site ABG pH (7.35-7.45) ABG pCO2 (35.0-45.0) mmHg ABG pO2 (80.0-100.0) mmHg ABG HCO3 (22.0-26.0) meq/L ABG O2 Saturation (96.0-97.0) % ABG Base Excess (-2-2.0) Jose David Test O2 Delivery Device Oxygen Flow Rate Sodium (136-145) mEq/L Potassium (3.5-5.1) mEq/L Chloride (98-107) mEq/L Carbon Dioxide (21-32) mEq/L Anion Gap (5-15) BUN (7-18) mg/dL Creatinine (0.7-1.3) mg/dL Est Cr Clr Drug Dosing mL/min Estimated GFR (MDRD) (>60) mL/min BUN/Creatinine Ratio (14-18) Glucose (83-115) mg/dL Lactic Acid (0.4-2.0) mmol/L Calcium (8.5-10.1) mg/dL Magnesium (1.8-2.4) mg/dl Total Bilirubin (0.2-1.0) mg/dL AST (15-37) U/L ALT (16-63) U/L Alkaline Phosphatase (46-116) U/L C-Reactive Protein (<1.0) mg/dL Total Protein (6.4-8.2) g/dl Albumin (3.4-5.0) g/dl Globulin gm/dL Albumin/Globulin Ratio (1-2) Procalcitonin 0.46 H ng/mL 12/04/20 12/04/20 12/04/20 Range/Units 04:30 18:20 18:50 WBC (4.23-9.07) K/mm3 RBC (4.63-6.08) M/mm3 Hgb (13.7-17.5) gm/dl Hct (40.1-51.0) % MCV (79.0-92.2) fl MCH (25.7-32.2) pg MCHC (32.2-35.5) g/dl RDW Std Deviation (35.1-43.9) fL Plt Count (163-337) K/mm3 MPV (9.4-12.3) fl Neut % (Auto) (34.0-67.9) % Lymph % (Auto) (21.8-53.1) % [place] % (Auto) (5.3-12.2) % Eos % (Auto) (0.8-7.0) Baso % (Auto) (0.1-1.2) % Neut # (Auto) (1.78-5.38) K/mm3 Lymph # (Auto) (1.32-3.57) K/mm3 [place] # (Auto) (0.30-0.82) K/mm3 Eos # (Auto) (0.04-0.54) K/mm3 Baso # (Auto) (0.01-0.08) K/mm3 Manual Slide Review PT (9.7-12.0) SECONDS INR D-Dimer, Quantitative 1.08 H (0.19-0.50) mg/L Puncture Site ABG pH (7.35-7.45) ABG pCO2 (35.0-45.0) mmHg ABG pO2 (80.0-100.0) mmHg ABG HCO3 (22.0-26.0) meq/L ABG O2 Saturation (96.0-97.0) % ABG Base Excess (-2-2.0) Jose David Test O2 Delivery Device Oxygen Flow Rate Sodium 141 (136-145) mEq/L Potassium 3.6 (3.5-5.1) mEq/L Chloride 104 (98-107) mEq/L Carbon Dioxide 28 (21-32) mEq/L Anion Gap 12.6 (5-15) BUN 12 (7-18) mg/dL Creatinine 0.8 (0.7-1.3) mg/dL Est Cr Clr Drug Dosing 61.17 mL/min Estimated GFR (MDRD) > 60 (>60) mL/min BUN/Creatinine Ratio 15.0 (14-18) Glucose 118 H (83-115) mg/dL Lactic Acid 0.9 (0.4-2.0) mmol/L Calcium 6.5 L (8.5-10.1) mg/dL Magnesium 2.1 (1.8-2.4) mg/dl Total Bilirubin 1.2 H (0.2-1.0) mg/dL AST 32 (15-37) U/L ALT 18 (16-63) U/L Alkaline Phosphatase 150 H (46-116) U/L C-Reactive Protein 17.2 H* (<1.0) mg/dL Total Protein 5.6 L (6.4-8.2) g/dl Albumin 2.2 L (3.4-5.0) g/dl Globulin 3.4 gm/dL Albumin/Globulin Ratio 0.7 L (1-2) Procalcitonin ng/mL 12/04/20 Range/Units 18:57 WBC (4.23-9.07) K/mm3 RBC (4.63-6.08) M/mm3 Hgb (13.7-17.5) gm/dl Hct (40.1-51.0) % MCV (79.0-92.2) fl MCH (25.7-32.2) pg MCHC (32.2-35.5) g/dl RDW Std Deviation (35.1-43.9) fL Plt Count (163-337) K/mm3 MPV (9.4-12.3) fl Neut % (Auto) (34.0-67.9) % Lymph % (Auto) (21.8-53.1) % [place] % (Auto) (5.3-12.2) % Eos % (Auto) (0.8-7.0) Baso % (Auto) (0.1-1.2) % Neut # (Auto) (1.78-5.38) K/mm3 Lymph # (Auto) (1.32-3.57) K/mm3 [place] # (Auto) (0.30-0.82) K/mm3 Eos # (Auto) (0.04-0.54) K/mm3 Baso # (Auto) (0.01-0.08) K/mm3 Manual Slide Review PT (9.7-12.0) SECONDS INR D-Dimer, Quantitative (0.19-0.50) mg/L Puncture Site Lt radial ABG pH 7.33 L (7.35-7.45) ABG pCO2 58.6 H (35.0-45.0) mmHg ABG pO2 55.0 L (80.0-100.0) mmHg ABG HCO3 29.7 H (22.0-26.0) meq/L ABG O2 Saturation 88.2 L (96.0-97.0) % ABG Base Excess 3.2 H (-2-2.0) Jose David Test Positive O2 Delivery Device Venturi Oxygen Flow Rate 15.0 Sodium (136-145) mEq/L Potassium (3.5-5.1) mEq/L Chloride (98-107) mEq/L Carbon Dioxide (21-32) mEq/L Anion Gap (5-15) BUN (7-18) mg/dL Creatinine (0.7-1.3) mg/dL Est Cr Clr Drug Dosing mL/min Estimated GFR (MDRD) (>60) mL/min BUN/Creatinine Ratio (14-18) Glucose (83-115) mg/dL Lactic Acid (0.4-2.0) mmol/L Calcium (8.5-10.1) mg/dL Magnesium (1.8-2.4) mg/dl Total Bilirubin (0.2-1.0) mg/dL AST (15-37) U/L ALT (16-63) U/L Alkaline Phosphatase (46-116) U/L C-Reactive Protein (<1.0) mg/dL Total Protein (6.4-8.2) g/dl Albumin (3.4-5.0) g/dl Globulin gm/dL Albumin/Globulin Ratio (1-2) Procalcitonin ng/mL Pete Results Last 24 Hours: Microbiology 12/01/20 21:13 Aerobic Blood Culture - Preliminary Blood - Venous - Lab Draw NO GROWTH AFTER 2 DAYS Anaerobic Blood Culture - Preliminary NO GROWTH AFTER 2 DAYS 12/01/20 21:03 Aerobic Blood Culture - Preliminary Blood - Venous NO GROWTH AFTER 2 DAYS Anaerobic Blood Culture - Preliminary NO GROWTH AFTER 2 DAYS 12/03/20 12:10 Stool Occult Blood (PETE) - Final Stool / Feces Med Orders - Current: Current Medications Acetaminophen (Tylenol) 650 mg PO Q6H PRN PRN Reason: Pain Last Admin: 12/03/20 22:09 Dose: 650 mg Documented by: Albuterol (Proventil Hfa) 0 gm INH Q6H PRN PRN Reason: Shortness of Breath Last Admin: 12/04/20 18:13 Dose: 2 puff Documented by: Albuterol/Ipratropium (Duoneb 3.0-0.5 Mg/3 Ml) 3 ml NEB Q6HRRT PRN PRN Reason: wheezing/SOB/cough Last Admin: 12/04/20 13:14 Dose: 3 ml Documented by: Aspirin (Halfprin) 81 mg PO DAILY [facility] Last Admin: 12/04/20 08:52 Dose: 81 mg Documented by: Benzocaine/Menthol (Cepacol Sore Throat) 1 lozenge MUCMEM Q2H PRN PRN Reason: throat irritation Last Admin: 12/04/20 06:40 Dose: 1 lozenge Documented by: Calcium Carbonate/Glycine (Tums) 1,000 mg PO BIDAC [facility] Last Admin: 12/04/20 15:12 Dose: 1,000 mg Documented by: Enoxaparin Sodium (Lovenox) 50 mg SUBCUT Q12H [facility] Last Admin: 12/04/20 08:54 Dose: 50 mg Documented by: Famotidine (Pepcid) 20 mg PO DAILY [facility] Last Admin: 12/04/20 08:52 Dose: 20 mg Documented by: Piperacillin Sod/Tazobactam (Sod 4.5 gm/ Sodium Chloride) 100 mls @ 25 mls/hr IV Q8H [facility] Last Admin: 01/09/21 15:18 Dose: 25 mls/hr Documented by: Loratadine (Claritin) 10 mg PO DAILY [facility] Last Admin: 12/04/20 08:52 Dose: 10 mg Documented by: Metoprolol Succinate (Toprol Xl) 100 mg PO DAILY [facility] Last Admin: 12/04/20 08:52 Dose: 100 mg Documented by: Metoprolol Tartrate (Lopressor) 5 mg IVPUSH Q4H PRN PRN Reason: Tachycardia Mometasone Furoate/Formoterol Fumar (Dulera 200-5 Mcg) 2 puff IH BID [facility] Last Admin: 12/04/20 08:07 Dose: 2 puff Documented by: Multivitamins (Thera) 1 each PO DAILY [facility] Last Admin: 12/04/20 08:52 Dose: 1 each Documented by: Ondansetron HCl (Zofran) 4 mg IVPUSH Q6HR PRN PRN Reason: Nausea/Vomiting Casodex ( Bicalutamide 50 Mg) Ptom 0 each PO DAILY [facility] Last Admin: 12/04/20 09:50 Dose: 1 each Documented by: Prednisone (Prednisone) 5 mg PO BIDMEALS [facility] Last Admin: 12/04/20 18:14 Dose: 5 mg Documented by: Senna/Docusate Sodium (Senna Plus) 1 tab PO BID [facility] Last Admin: 12/04/20 08:52 Dose: 1 tab Documented by: Tiotropium [place] (Spiriva Respimat) 0 gm INH DAILY [facility] Last Admin: 12/04/20 08:09 Dose: 4 gm Documented by: Warfarin Sodium (Pharmacy To Dose - Warfarin) 1 dose .XX ASDIRECTED PRN PRN Reason: RX TO DOSE WARFARIN Discontinued Medications Calcium Carbonate/Glycine (Tums) 1,000 mg PO DAILY [facility] Enoxaparin Sodium (Lovenox) 50 mg SUBCUT Q12H [facility] Last Admin: 12/02/20 22:13 Dose: 50 mg Documented by: Furosemide (Lasix) 20 mg IVPUSH ONETIME [facility] Stop: 12/03/20 15:00 Furosemide (Lasix) 20 mg IVPUSH ONETIME ONE Stop: 12/03/20 08:58 Last Admin: 12/03/20 10:38 Dose: 20 mg Documented by: Sodium Chloride (Normal Saline) 1,000 mls @ 150 mls/hr IV ASDIRECTED [facility] Last Admin: 12/01/20 20:46 Dose: 150 mls/hr Documented by: Levofloxacin/Dextrose 750 mg/ (Premix) 150 mls @ 100 mls/hr IV ONETIME [facility] Stop: 12/01/20 23:26 Last Admin: 12/01/20 22:45 Dose: 100 mls/hr Documented by: Metronidazole 500 mg/ Premix 100 mls @ 100 mls/hr IV ONETIME ONE Stop: 12/02/20 00:26 Last Admin: 12/01/20 23:45 Dose: 100 mls/hr Documented by: Sodium Chloride (Normal Saline) 1,000 mls @ 150 mls/hr IV ASDIRECTED [facility] Last Admin: 12/02/20 11:50 Dose: 150 mls/hr Documented by: Metronidazole 500 mg/ Premix 100 mls @ 100 mls/hr IV Q8H [facility] Levofloxacin/Dextrose 750 mg/ (Premix) 150 mls @ 100 mls/hr IV Q24H [facility] Piperacillin Sod/Tazobactam (Sod 4.5 gm/ Sodium Chloride) 100 mls @ 25 mls/hr IV Q8H [facility] Last Admin: 12/03/20 16:07 Dose: Not Given Documented by: Piperacillin Sod/Tazobactam (Sod 4.5 gm/ Sodium Chloride) 100 mls @ 200 mls/hr IV ONETIME ONE Stop: 12/02/20 03:38 Last Admin: 12/02/20 03:42 Dose: 200 mls/hr Documented by: Sodium Chloride (Normal Saline) 500 mls @ 999 mls/hr IV .BOLUS ONE Stop: 12/02/20 15:10 Last Admin: 12/02/20 14:59 Dose: 999 mls/hr Documented by: Sodium Chloride (Normal Saline) 250 mls @ 100 mls/hr IV ASDIRECTED [facility] Metoprolol Succinate (Toprol Xl) 50 mg PO ONETIME ONE Stop: 12/02/20 14:41 Last Admin: 12/02/20 15:02 Dose: 50 mg Documented by: Metoprolol Tartrate (Lopressor) 5 mg IVPUSH ONETIME ONE Stop: 12/02/20 14:46 Last Admin: 12/02/20 15:01 Dose: 5 mg Documented by: Ondansetron HCl (Zofran) 4 mg IVPUSH ONETIME ONE Stop: 12/01/20 20:28 Last Admin: 12/01/20 20:46 Dose: 4 mg Documented by: Casodex ( Bicalutamide 50 Mg) Ptom 0 each PO DAILY [facility] Last Admin: 12/03/20 09:16 Dose: 50 each Documented by: Potassium Chloride (Klor-Con M20) 40 meq PO BID [facility] Stop: 12/03/20 09:01 Last Admin: 12/02/20 21:19 Dose: 40 meq Documented by: Tbo-Filgrastim (Granix) 270 mcg SQ ONETIME ONE Stop: 12/02/20 13:01 Last Admin: 12/02/20 14:05 Dose: 270 mcg Documented by: Tramadol HCl (Ultram) 50 mg PO ONETIME ONE Stop: 12/02/20 01:43 Last Admin: 12/02/20 02:19 Dose: 50 mg Documented by: Warfarin Sodium (Coumadin) 3 mg PO QPM [facility] Stop: 12/02/20 18:01 Last Admin: 12/02/20 19:36 Dose: 3 mg Documented by: Warfarin Sodium (Coumadin) 3 mg PO QPM [facility] Stop: 12/03/20 18:01 Last Admin: 12/03/20 18:05 Dose: 3 mg Documented by: Warfarin Sodium (Coumadin) 3 mg PO QPM [facility] Stop: 12/04/20 18:01 Last Admin: 12/04/20 18:16 Dose: 3 mg Documented by: - Exam Quality Assessment: Supplemental Oxygen General: Alert, Oriented HEENT: Pupils Equal, Mucous Membr. Moist/[place] Neck: Supple Lungs: Decreased Breath Sounds, Rales, Wheezing. No: Normal Respiratory Effort (Tachypnea with Tracheal tugging and abdominal breathing) Cardiovascular: Irregular Rhythm, Tachycardia GI/Abdominal Exam: Normal Bowel Sounds, Soft, Non-Tender, No Distention Extremities: Normal Inspection, Normal Capillary Refill Skin: Warm, Dry, Intact Psy/Mental Status: Alert, Normal Affect, Normal Mood Sepsis Event Note - Evaluation Sepsis Screening Result: No Definite Risk - Focused Exam Vital Signs: Vital Signs Temp Pulse Resp BP Pulse Ox Pulse Ox 12/04/20 15:15 97.3 F 104 H 20 111/72 92 L 12/04/20 13:16 94 L 12/04/20 11:45 70 92 L 12/04/20 11:21 97.5 F 94 16 117/72 88 L 12/04/20 08:52 83 123/87 12/04/20 08:10 97 - Problem List & Annotations (1) Anemia SNOMED Code(s): 100605579 Code(s): D64.9 - ANEMIA, UNSPECIFIED Status: Acute Priority: High Current Visit: Yes Qualifiers: Anemia type: unspecified type Qualified Code(s): D64.9 - Anemia, unspecified (2) Generalized weakness SNOMED Code(s): 44852666 Code(s): R53.1 - WEAKNESS Status: Acute Priority: High Current Visit: Yes (3) Hypoalbuminemia SNOMED Code(s): 993370007 Code(s): E88.09 - OTH DISORDERS OF PLASMA-PROTEIN METABOLISM, NEC Status: Acute Priority: High Current Visit: Yes (4) Hypocalcemia SNOMED Code(s): 5232105 Code(s): E83.51 - HYPOCALCEMIA Status: Acute Priority: High Current Visit: Yes (5) Congestive heart failure SNOMED Code(s): 35413814 Code(s): I50.9 - HEART FAILURE, UNSPECIFIED Status: Acute Current Visit: No Qualifiers: Heart failure type: unspecified Heart failure chronicity: acute on chronic Qualified Code(s): I50.9 - Heart failure, unspecified (6) Pneumonia SNOMED Code(s): 260419323 Code(s): J18.9 - PNEUMONIA, UNSPECIFIED ORGANISM Status: Acute Current Visit: No Qualifiers: Pneumonia type: due to unspecified organism Laterality: left Lung location: upper lobe of lung Qualified Code(s): J18.9 - Pneumonia, unspecified organism (7) Diverticulitis SNOMED Code(s): 265041386 Code(s): K57.92 - DVTRCLI OF INTEST, PART UNSP, W/O PERF OR ABSCESS W/O BLEED Status: Acute Priority: High Current Visit: Yes - Problem List Review Problem List Initiated/Reviewed/Updated: Yes - My Orders Last 24 Hours: My Active Orders 12/03/20 23:59 Benzocaine/Cetylpyrd/Menthol [Cepacol Sore Throat] 1 lozenge MUCMEM Q2H PRN 12/04/20 18:36 CXR [Chest 1V Frontal] [CR] Routine 12/04/20 18:37 CMP [COMPREHENSIVE METABOLIC PN,CMP] [CHEM] Routine PRO B-TYPE NATRIUR PEPT,BNPPRO [CHEM] Stat TROPONIN I [CHEM] Routine 12/04/20 18:38 EKG 12 Lead [EKG Documentation Completion] [RC] STAT 12/04/20 18:51 Chest Physiotherapy [RT Chest Physiotherapy] [RC] ASDIRECTED 12/05/20 05:11 INR,PT,PROTHROMBIN TIME [COAG] AM 12/06/20 05:11 INR,PT,PROTHROMBIN TIME [COAG] AM 12/07/20 05:11 INR,PT,PROTHROMBIN TIME [COAG] AM 12/08/20 05:11 INR,PT,PROTHROMBIN TIME [COAG] AM 12/09/20 05:11 INR,PT,PROTHROMBIN TIME [COAG] AM 12/10/20 05:11 INR,PT,PROTHROMBIN TIME [COAG] AM 12/11/20 05:11 INR,PT,PROTHROMBIN TIME [COAG] AM 12/12/20 05:11 INR,PT,PROTHROMBIN TIME [COAG] AM 12/13/20 05:11 INR,PT,PROTHROMBIN TIME [COAG] AM 12/14/20 05:11 INR,PT,PROTHROMBIN TIME [COAG] AM 12/15/20 05:11 INR,PT,PROTHROMBIN TIME [COAG] AM 12/16/20 05:11 INR,PT,PROTHROMBIN TIME [COAG] AM 12/17/20 05:11 INR,PT,PROTHROMBIN TIME [COAG] AM 12/18/20 05:11 INR,PT,PROTHROMBIN TIME [COAG] AM 12/19/20 05:11 INR,PT,PROTHROMBIN TIME [COAG] AM 12/20/20 05:11 INR,PT,PROTHROMBIN TIME [COAG] AM 12/21/20 05:11 INR,PT,PROTHROMBIN TIME [COAG] AM 12/22/20 05:11 INR,PT,PROTHROMBIN TIME [COAG] AM 12/23/20 05:11 INR,PT,PROTHROMBIN TIME [COAG] AM 12/24/20 05:11 INR,PT,PROTHROMBIN TIME [COAG] AM 12/25/20 05:11 INR,PT,PROTHROMBIN TIME [COAG] AM 12/26/20 05:11 INR,PT,PROTHROMBIN TIME [COAG] AM 12/27/20 05:11 INR,PT,PROTHROMBIN TIME [COAG] AM 12/28/20 05:11 INR,PT,PROTHROMBIN TIME [COAG] AM 12/29/20 05:11 INR,PT,PROTHROMBIN TIME [COAG] AM 12/30/20 05:11 INR,PT,PROTHROMBIN TIME [COAG] AM 12/31/20 05:11 INR,PT,PROTHROMBIN TIME [COAG] AM 01/01/21 05:11 INR,PT,PROTHROMBIN TIME [COAG] AM 01/02/21 05:11 INR,PT,PROTHROMBIN TIME [COAG] AM 01/03/21 05:11 INR,PT,PROTHROMBIN TIME [COAG] AM 01/04/21 05:11 INR,PT,PROTHROMBIN TIME [COAG] AM 01/05/21 05:11 INR,PT,PROTHROMBIN TIME [COAG] AM 01/06/21 05:11 INR,PT,PROTHROMBIN TIME [COAG] AM 01/07/21 05:11 INR,PT,PROTHROMBIN TIME [COAG] AM 01/08/21 05:11 INR,PT,PROTHROMBIN TIME [COAG] AM 01/09/21 05:11 INR,PT,PROTHROMBIN TIME [COAG] AM 01/10/21 05:11 INR,PT,PROTHROMBIN TIME [COAG] AM 01/11/21 05:11 INR,PT,PROTHROMBIN TIME [COAG] AM 01/12/21 05:11 INR,PT,PROTHROMBIN TIME [COAG] AM 01/13/21 05:11 INR,PT,PROTHROMBIN TIME [COAG] AM 01/14/21 05:11 INR,PT,PROTHROMBIN TIME [COAG] AM 01/15/21 05:11 INR,PT,PROTHROMBIN TIME [COAG] AM 01/16/21 05:11 INR,PT,PROTHROMBIN TIME [COAG] AM 01/17/21 05:11 INR,PT,PROTHROMBIN TIME [COAG] AM 01/18/21 05:11 INR,PT,PROTHROMBIN TIME [COAG] AM 01/19/21 05:11 INR,PT,PROTHROMBIN TIME [COAG] AM 01/20/21 05:11 INR,PT,PROTHROMBIN TIME [COAG] AM 01/21/21 05:11 INR,PT,PROTHROMBIN TIME [COAG] AM 01/22/21 05:11 INR,PT,PROTHROMBIN TIME [COAG] AM 01/23/21 05:11 INR,PT,PROTHROMBIN TIME [COAG] AM 01/24/21 05:11 INR,PT,PROTHROMBIN TIME [COAG] AM 01/25/21 05:11 INR,PT,PROTHROMBIN TIME [COAG] AM 01/26/21 05:11 INR,PT,PROTHROMBIN TIME [COAG] AM 01/27/21 05:11 INR,PT,PROTHROMBIN TIME [COAG] AM 01/28/21 05:11 INR,PT,PROTHROMBIN TIME [COAG] AM 01/29/21 05:11 INR,PT,PROTHROMBIN TIME [COAG] AM 01/30/21 05:11 INR,PT,PROTHROMBIN TIME [COAG] AM 01/31/21 05:11 INR,PT,PROTHROMBIN TIME [COAG] AM 02/01/21 05:11 INR,PT,PROTHROMBIN TIME [COAG] AM 02/02/21 05:11 INR,PT,PROTHROMBIN TIME [COAG] AM 02/03/21 05:11 INR,PT,PROTHROMBIN TIME [COAG] AM 02/04/21 05:11 INR,PT,PROTHROMBIN TIME [COAG] AM 02/05/21 05:11 INR,PT,PROTHROMBIN TIME [COAG] AM 02/06/21 05:11 INR,PT,PROTHROMBIN TIME [COAG] AM 02/07/21 05:11 INR,PT,PROTHROMBIN TIME [COAG] AM 02/08/21 05:11 INR,PT,PROTHROMBIN TIME [COAG] AM 02/09/21 05:11 INR,PT,PROTHROMBIN TIME [COAG] AM 02/10/21 05:11 INR,PT,PROTHROMBIN TIME [COAG] AM 02/11/21 05:11 INR,PT,PROTHROMBIN TIME [COAG] AM 02/12/21 05:11 INR,PT,PROTHROMBIN TIME [COAG] AM 02/13/21 05:11 INR,PT,PROTHROMBIN TIME [COAG] AM 02/14/21 05:11 INR,PT,PROTHROMBIN TIME [COAG] AM 02/15/21 05:11 INR,PT,PROTHROMBIN TIME [COAG] AM 02/16/21 05:11 INR,PT,PROTHROMBIN TIME [COAG] AM 02/17/21 05:11 INR,PT,PROTHROMBIN TIME [COAG] AM 02/18/21 05:11 INR,PT,PROTHROMBIN TIME [COAG] AM 02/19/21 05:11 INR,PT,PROTHROMBIN TIME [COAG] AM 02/20/21 05:11 INR,PT,PROTHROMBIN TIME [COAG] AM 02/21/21 05:11 INR,PT,PROTHROMBIN TIME [COAG] AM 02/22/21 05:11 INR,PT,PROTHROMBIN TIME [COAG] AM 02/23/21 05:11 INR,PT,PROTHROMBIN TIME [COAG] AM 02/24/21 05:11 INR,PT,PROTHROMBIN TIME [COAG] AM 02/25/21 05:11 INR,PT,PROTHROMBIN TIME [COAG] AM 02/26/21 05:11 INR,PT,PROTHROMBIN TIME [COAG] AM 02/27/21 05:11 INR,PT,PROTHROMBIN TIME [COAG] AM 02/28/21 05:11 INR,PT,PROTHROMBIN TIME [COAG] AM 03/01/21 05:11 INR,PT,PROTHROMBIN TIME [COAG] AM 03/02/21 05:11 INR,PT,PROTHROMBIN TIME [COAG] AM 03/03/21 05:11 INR,PT,PROTHROMBIN TIME [COAG] AM 03/04/21 05:11 INR,PT,PROTHROMBIN TIME [COAG] AM 03/05/21 05:11 INR,PT,PROTHROMBIN TIME [COAG] AM 03/06/21 05:11 INR,PT,PROTHROMBIN TIME [COAG] AM 03/07/21 05:11 INR,PT,PROTHROMBIN TIME [COAG] AM 03/08/21 05:11 INR,PT,PROTHROMBIN TIME [COAG] AM 03/09/21 05:11 INR,PT,PROTHROMBIN TIME [COAG] AM 03/10/21 05:11 INR,PT,PROTHROMBIN TIME [COAG] AM - Assessment Assessment:: Assessment - Day of admission: 12/02/2020 * 75 Yo male presents to ED with 2 week history of generalized weakness, dyspnea at rest, LLQ ab pain, nausea, vomiting, and cough * Denies fever, orthopnea, constipation, diarrhea, or urinary symptoms. * On 2L of oxygen in ED (baseline) with saturations of 97% * History of A-fib, HLD, HTN, COPD, Arthritis, Prostate cancer receiving Ctx and Rtx, Port-a-cath in right chest, porcine aortic and mitral valve replacement in 04/09/2014. Former smoker * 12-lead EKG in ED: Alternating a-fib and sinus rhythm wit tachycardia at 104 bpm. Variable p-waves and late transition noted with prolonged QTc. No change from 09/08/2018 * Labs: * WBC 0.07 * Hgb 8.6 * Plt 178 * INR 1.39 * D-Dimer 2.98 * Sodium 137-->138 * Potassium 3.6-->3.2 * Anion gap 9.6-->11.2 * BUN 25-->21 * Creatinine 1.0-->1.0 * GFR >60--> Greater than 60 * Calcium 7.4 (corrected 8.1)-->6.0 (corrected 7.3) * Bilirubin 2.3 * AST 29, ALT 29, Alk Phos 259 * Troponin I 0.119-->0.140 * Albumin 3.1-->2.4 * Lipase 126 * TSH 1.967 * ABG: Left radial, pH 7.47, PCO2 4 3.7, PO2 of 94, HCO3 of 31.2, O2 saturation 98.0, base excess 7.2, A-a gradient 51 * Lactic acid 1.2 * Influenza A, B, and SARS-CoV-2 RNA: Negative * ANC calculated at 70 * CXR in ED: Enlarged heart, Prosthetic heart valves, sternotomy and right sided port is noted; Nothing acute * CT of abdomen and pelvis in ED: * 1. Findings compatible with mild diverticulitis. * 2. Findings compatible with osseous metastatic disease. Retroperitoneal adenopathy is seen with adenopathy continuing along the left iliac chain. Slightly prominent lymph node within the left inguinal region is seen. These are most likely metastatic. * 3. Bladder wall thickening with small bladder diverticulum. Consider bladder ultrasound to further evaluate if clinical etiology is not known. * 4. Other findings as noted above which are nonacute. * CT angiogram of the chest in ED * 1. No findings of pulmonary embolism. * 2. Mild mediastinal adenopathy is seen. Several slightly prominent lymph nodes within the upper retroperitoneum at the diaphragmatic margin are seen. Diffuse osseous sclerotic metastatic changes seen throughout the osseous structures. * 3. Emphysematous change. No acute parenchymal process is seen. * Given Levaquin 750mg and Flagyl in ED * Patient is admitted to medical surgical floor on telemetry. * Dr. Zelaya on vacation. Discussed case with Coco Cottrell NP who recommended Granix, Claritin and Pepcid * Has follow-up appointment scheduled already on 12/15/20 prior to next infusion 12/03/2020 * Reports abdomen feels better today * Advance diet to neutropenic regular * Continue IV Zosyn * Given Granix yesterday * Obtain procalcitonin * Remains on 2L * Labs: * WBC 1.83 * Hgb 6.7 * Hct 22.0 * Absolute neutrophils 0.94 * INR 1.72 * Sodium 139 * Potassium 4.2 * GFR >60 * Calcium 6.1 * Bilirubin 1.4 * Troponin 0.114 * CRP 24.6 * Give 2 units PRBC with 20mg lasix between * Give 20mg lasix now * Checking occult stool * Drop in Hgb is likely 2/2 IV rehydration and baseline anemia 2/2 chemotherapy. No current signs of active bleeding. 12/04/2020 * Flash pulmonary edema * Resolution of neutropenia s/p Granix * IV Zosyn for diverticulitis * Procalcitonin mildly elevated yesterday at 0.46 * Morning labs showed a decrease in C-reactive protein at 17.2, white blood cell count increased to 6.61 with 4.67 absolute neutrophil count. Continue toxic granulations on PMNs with few neutrophilic bands seen. * Patient started on BiPAP at 12/6 for his pulmonary edema. * Fecal occult blood testing was positive * Hemoglobin 9.5 from 6.7 after 2 units packed red blood cells - Plan Plan:: Diverticulitis * Blood cultures negative thus far * Continue Zosyn * Advance diet to regular with neutropenic precautions * Antiemetics as indicated * Monitor vital signs * Discontinue IV fluids * Mildly elevated procalcitonin at 0.46 Pulmonary edema, CHF * Lasix 40 mg IV now and 20 mg IV in the morning * BiPAP 12/6 as long as tolerated. Respiratory therapist just contact me and stated that he is having difficulty tolerating it. He can take a break from BiPAP but if he develops respiratory distress again he will need to restart the BiPAP. Metastatic neoplasm Prostate cancer Severe neutropenia Port-A-Cath in place Generalized weakness Anemia Hypotension * Access port * Neutropenic isolation * PT/OT * Obtain oncology notes * Monitor for fever * Discussed with oncology: gave Granix 12/02/20 and started daily Claritin and Pepcid for symptom reduction * CM/SW * Follow-up with oncology after discharge (has appt scheduled for 12/15/2020 * Transfuse 2 units PRBC with 20mg lasix between * 20mg IVP lasix now * Check occult stool Atrial fibrillation Elevated troponin, improved Subtherapeutic international normalized ratio (INR) History of aortic valve replacement with porcine valve History of mitral valve replacement with porcine valve * Follow INR * Pharmacy to dose warfarin * Bridge with Lovenox Hypokalemia, resolved Hypoalbuminemia Hypocalcemia * Dietary consultation * Correct calcium calculation due to low albumin * Obtain ionized calcium * Supplement calcium with Tums BID AC Metabolic alkalosis COPD (chronic obstructive pulmonary disease) with emphysema Former smoker * O2 as needed (Baseline 2L) * PRN albuterol * Continue home respiratory medications Code status: DNR/DNI PCP: Jones Mchugh NP [employer] Aide: Dr. Garcia Oncologist: Dr. Zelaya DVT prophylaxis: Lovenox bridging until INR is therapeutic with warfarin Disposition: Admit to medical floor on telemetry for management of diverticulitis, subtherapeutic INR, and further discussion on metastatic disease. Prognosis: Poor overall given multiple metastatic findings
--- NOTE | 2020-12-04 19:39 | CR ---
Chest: Portable view of the chest was obtained. Comparison: Prior chest x-ray of 12/01/20. Heart is enlarged. Upper mediastinum is normal. Two prosthetic heart valves are seen. Previous sternotomy is noted. Right-sided infusion catheter is seen. Worsening pulmonary vascular congestion is seen. Findings are more prominent on the right side. Possible small right-sided pleural effusion is seen. Impression: 1. Findings suspicious for either CHF or fluid overload. Please correlate if this matches clinically. 2. Other stable findings as noted above. Diagnostic code #3
[2020-12-04] MEDS ORDERED: Furosemide 40 MG/4 ML VIAL IVPUSH ONE (19:40)
[2020-12-05] MEDS: Albuterol/Ipratropium 3.0-0.5 MG/3 ML Neb Soln NEB PRN (06:26)
[2020-12-05] MEDS: Piperacillin/Tazobactam 4.5 GM in Sodium Chloride 0.9% 100 ML IV SCH ×3 (06:36→23:50)
[2020-12-05] MEDS: Calcium Carbonate 500 MG Tab.Chew PO SCH ×2 (06:37→16:07)
[2020-12-05] MEDS: predniSONE 5 MG Tab PO SCH ×2 (06:37→16:07)
--- NOTE | 2020-12-05 08:00 | PCM.PN ---
- General Info Date of Service: 12/05/20 Admission Dx/Problem (Free Text): Admission Diagnosis/Problem Admission Diagnosis/Problem Diverticulitis Subjective Update: He had a respiratory distress last night. It was a rough night according to him but he feels much better this AM. He is now back to supplemental O2. He is eating and drinking fine. His last bowel movement was this morning and his stool is regular. He has no acute issues this morning. His blood culture and heme- occult tests were negative. Functional Status: Reports: Pain Controlled, Tolerating Diet, Ambulating, Urinating. Denies: New Symptoms - Review of Systems General: Denies: Fever, Chills HEENT: Denies: Dysphasia, Sore Throat Pulmonary: Reports: Shortness of Breath. Denies: Pleuritic Chest Pain, Wheezing Cardiovascular: Denies: Chest Pain, Orthopnea, Edema Gastrointestinal: Denies: Abdominal Pain, Nausea, Vomiting Genitourinary: Reports: No Symptoms Musculoskeletal: Denies: Joint Pain Skin: Reports: Bruising Neurological: Denies: Confusion Psychiatric: Denies: Mood Lability, Cravings - Patient Data Vitals - Most Recent: Last Vital Signs Temp 36.5 C 12/05/20 04:02 Pulse 100 12/05/20 07:40 Resp 16 12/05/20 04:02 BP 108/64 12/05/20 07:40 Pulse Ox 93 L 12/05/20 07:40 Weight - Most Recent: 56.291 kg I&O - Last 24 Hours: Intake & Output 12/04/20 12/05/20 12/05/20 22:59 06:59 14:59 Intake Total 990 500 Output Total 850 1150 Balance 140 -650 Lab Results Last 24 Hours: Laboratory Results - last 24 hr 12/04/20 12/04/20 12/04/20 Range/Units 18:49 18:50 18:50 WBC (4.23-9.07) K/mm3 RBC (4.63-6.08) M/mm3 Hgb (13.7-17.5) gm/dl Hct (40.1-51.0) % MCV (79.0-92.2) fl MCH (25.7-32.2) pg MCHC (32.2-35.5) g/dl RDW Std Deviation (35.1-43.9) fL Plt Count (163-337) K/mm3 MPV (9.4-12.3) fl Neut % (Auto) (34.0-67.9) % Lymph % (Auto) (21.8-53.1) % [place] % (Auto) (5.3-12.2) % Eos % (Auto) (0.8-7.0) Baso % (Auto) (0.1-1.2) % Neut # (Auto) (1.78-5.38) K/mm3 Lymph # (Auto) (1.32-3.57) K/mm3 [place] # (Auto) (0.30-0.82) K/mm3 Eos # (Auto) (0.04-0.54) K/mm3 Baso # (Auto) (0.01-0.08) K/mm3 Manual Slide Review PT (9.7-12.0) SECONDS INR D-Dimer, Quantitative (0.19-0.50) mg/L Puncture Site ABG pH (7.35-7.45) ABG pCO2 (35.0-45.0) mmHg ABG pO2 (80.0-100.0) mmHg ABG HCO3 (22.0-26.0) meq/L ABG O2 Saturation (96.0-97.0) % ABG Base Excess (-2-2.0) Jose David Test O2 Delivery Device Oxygen Flow Rate Sodium 143 (136-145) mEq/L Potassium 3.6 (3.5-5.1) mEq/L Chloride 103 (98-107) mEq/L Carbon Dioxide 32 (21-32) mEq/L Anion Gap 11.6 (5-15) BUN 12 (7-18) mg/dL Creatinine 0.9 (0.7-1.3) mg/dL Est Cr Clr Drug Dosing 55.34 mL/min Estimated GFR (MDRD) > 60 (>60) mL/min BUN/Creatinine Ratio 13.3 L (14-18) Glucose 167 H (83-115) mg/dL POC Glucose 161 H (83-110) mg/dL Lactic Acid (0.4-2.0) mmol/L Calcium 7.6 L (8.5-10.1) mg/dL Magnesium (1.8-2.4) mg/dl Total Bilirubin 1.1 H (0.2-1.0) mg/dL AST 29 (15-37) U/L ALT 23 (16-63) U/L Alkaline Phosphatase 168 H (46-116) U/L Troponin I 0.079 H* (0.00-0.056) ng/mL C-Reactive Protein (<1.0) mg/dL NT-Pro-B Natriuret Pep 7460 H (0-450) pg/mL Total Protein 6.1 L (6.4-8.2) g/dl Albumin 2.5 L (3.4-5.0) g/dl Globulin 3.6 gm/dL Albumin/Globulin Ratio 0.7 L (1-2) 12/04/20 12/04/20 12/04/20 Range/Units 18:50 18:50 18:50 WBC 10.22 H (4.23-9.07) K/mm3 RBC 3.59 L (4.63-6.08) M/mm3 Hgb 10.5 L (13.7-17.5) gm/dl Hct 32.4 L (40.1-51.0) % MCV 90.3 (79.0-92.2) fl MCH 29.2 (25.7-32.2) pg MCHC 32.4 (32.2-35.5) g/dl RDW Std Deviation 55.0 H (35.1-43.9) fL Plt Count 231 (163-337) K/mm3 MPV 9.5 (9.4-12.3) fl Neut % (Auto) 67.2 (34.0-67.9) % Lymph % (Auto) 8.4 L (21.8-53.1) % [place] % (Auto) 10.7 (5.3-12.2) % Eos % (Auto) 0 L (0.8-7.0) Baso % (Auto) 1.1 (0.1-1.2) % Neut # (Auto) 6.87 H (1.78-5.38) K/mm3 Lymph # (Auto) 0.86 L (1.32-3.57) K/mm3 [place] # (Auto) 1.09 H (0.30-0.82) K/mm3 Eos # (Auto) 0.00 L (0.04-0.54) K/mm3 Baso # (Auto) 0.11 H (0.01-0.08) K/mm3 Manual Slide Review Abnormal smear PT (9.7-12.0) SECONDS INR D-Dimer, Quantitative 1.08 H (0.19-0.50) mg/L Puncture Site ABG pH (7.35-7.45) ABG pCO2 (35.0-45.0) mmHg ABG pO2 (80.0-100.0) mmHg ABG HCO3 (22.0-26.0) meq/L ABG O2 Saturation (96.0-97.0) % ABG Base Excess (-2-2.0) Jose David Test O2 Delivery Device Oxygen Flow Rate Sodium (136-145) mEq/L Potassium (3.5-5.1) mEq/L Chloride (98-107) mEq/L Carbon Dioxide (21-32) mEq/L Anion Gap (5-15) BUN (7-18) mg/dL Creatinine (0.7-1.3) mg/dL Est Cr Clr Drug Dosing mL/min Estimated GFR (MDRD) (>60) mL/min BUN/Creatinine Ratio (14-18) Glucose (83-115) mg/dL POC Glucose (83-110) mg/dL Lactic Acid 0.9 (0.4-2.0) mmol/L Calcium (8.5-10.1) mg/dL Magnesium (1.8-2.4) mg/dl Total Bilirubin (0.2-1.0) mg/dL AST (15-37) U/L ALT (16-63) U/L Alkaline Phosphatase (46-116) U/L Troponin I (0.00-0.056) ng/mL C-Reactive Protein (<1.0) mg/dL NT-Pro-B Natriuret Pep (0-450) pg/mL Total Protein (6.4-8.2) g/dl Albumin (3.4-5.0) g/dl Globulin gm/dL Albumin/Globulin Ratio (1-2) 12/04/20 12/05/20 12/05/20 Range/Units 18:57 05:10 05:10 WBC 7.74 (4.23-9.07) K/mm3 RBC 3.30 L (4.63-6.08) M/mm3 Hgb 9.4 L (13.7-17.5) gm/dl Hct 30.0 L (40.1-51.0) % MCV 90.9 (79.0-92.2) fl MCH 28.5 (25.7-32.2) pg MCHC 31.3 L (32.2-35.5) g/dl RDW Std Deviation 54.6 H (35.1-43.9) fL Plt Count 173 (163-337) K/mm3 MPV 9.3 L (9.4-12.3) fl Neut % (Auto) 71.1 H (34.0-67.9) % Lymph % (Auto) 6.8 L (21.8-53.1) % [place] % (Auto) 8.9 (5.3-12.2) % Eos % (Auto) 0 L (0.8-7.0) Baso % (Auto) 0.5 (0.1-1.2) % Neut # (Auto) 5.50 H (1.78-5.38) K/mm3 Lymph # (Auto) 0.53 L (1.32-3.57) K/mm3 [place] # (Auto) 0.69 (0.30-0.82) K/mm3 Eos # (Auto) 0.00 L (0.04-0.54) K/mm3 Baso # (Auto) 0.04 (0.01-0.08) K/mm3 Manual Slide Review Abnormal smear PT 17.6 H (9.7-12.0) SECONDS INR 1.66 D-Dimer, Quantitative (0.19-0.50) mg/L Puncture Site Lt radial ABG pH 7.33 L (7.35-7.45) ABG pCO2 58.6 H (35.0-45.0) mmHg ABG pO2 55.0 L (80.0-100.0) mmHg ABG HCO3 29.7 H (22.0-26.0) meq/L ABG O2 Saturation 88.2 L (96.0-97.0) % ABG Base Excess 3.2 H (-2-2.0) Jose David Test Positive O2 Delivery Device Venturi Oxygen Flow Rate 15.0 Sodium (136-145) mEq/L Potassium (3.5-5.1) mEq/L Chloride (98-107) mEq/L Carbon Dioxide (21-32) mEq/L Anion Gap (5-15) BUN (7-18) mg/dL Creatinine (0.7-1.3) mg/dL Est Cr Clr Drug Dosing mL/min Estimated GFR (MDRD) (>60) mL/min BUN/Creatinine Ratio (14-18) Glucose (83-115) mg/dL POC Glucose (83-110) mg/dL Lactic Acid (0.4-2.0) mmol/L Calcium (8.5-10.1) mg/dL Magnesium (1.8-2.4) mg/dl Total Bilirubin (0.2-1.0) mg/dL AST (15-37) U/L ALT (16-63) U/L Alkaline Phosphatase (46-116) U/L Troponin I (0.00-0.056) ng/mL C-Reactive Protein (<1.0) mg/dL NT-Pro-B Natriuret Pep (0-450) pg/mL Total Protein (6.4-8.2) g/dl Albumin (3.4-5.0) g/dl Globulin gm/dL Albumin/Globulin Ratio (1-2) 12/05/20 Range/Units 05:10 WBC (4.23-9.07) K/mm3 RBC (4.63-6.08) M/mm3 Hgb (13.7-17.5) gm/dl Hct (40.1-51.0) % MCV (79.0-92.2) fl MCH (25.7-32.2) pg MCHC (32.2-35.5) g/dl RDW Std Deviation (35.1-43.9) fL Plt Count (163-337) K/mm3 MPV (9.4-12.3) fl Neut % (Auto) (34.0-67.9) % Lymph % (Auto) (21.8-53.1) % [place] % (Auto) (5.3-12.2) % Eos % (Auto) (0.8-7.0) Baso % (Auto) (0.1-1.2) % Neut # (Auto) (1.78-5.38) K/mm3 Lymph # (Auto) (1.32-3.57) K/mm3 [place] # (Auto) (0.30-0.82) K/mm3 Eos # (Auto) (0.04-0.54) K/mm3 Baso # (Auto) (0.01-0.08) K/mm3 Manual Slide Review PT (9.7-12.0) SECONDS INR D-Dimer, Quantitative (0.19-0.50) mg/L Puncture Site ABG pH (7.35-7.45) ABG pCO2 (35.0-45.0) mmHg ABG pO2 (80.0-100.0) mmHg ABG HCO3 (22.0-26.0) meq/L ABG O2 Saturation (96.0-97.0) % ABG Base Excess (-2-2.0) Jose David Test O2 Delivery Device Oxygen Flow Rate Sodium 145 (136-145) mEq/L Potassium 3.1 L (3.5-5.1) mEq/L Chloride 103 (98-107) mEq/L Carbon Dioxide 34 H (21-32) mEq/L Anion Gap 11.1 (5-15) BUN 12 (7-18) mg/dL Creatinine 1.0 (0.7-1.3) mg/dL Est Cr Clr Drug Dosing 49.81 mL/min Estimated GFR (MDRD) > 60 (>60) mL/min BUN/Creatinine Ratio 12.0 L (14-18) Glucose 122 H (83-115) mg/dL POC Glucose (83-110) mg/dL Lactic Acid (0.4-2.0) mmol/L Calcium 7.2 L (8.5-10.1) mg/dL Magnesium 1.9 (1.8-2.4) mg/dl Total Bilirubin 0.9 (0.2-1.0) mg/dL AST 25 (15-37) U/L ALT 19 (16-63) U/L Alkaline Phosphatase 139 H (46-116) U/L Troponin I (0.00-0.056) ng/mL C-Reactive Protein 11.5 H* (<1.0) mg/dL NT-Pro-B Natriuret Pep (0-450) pg/mL Total Protein 5.6 L (6.4-8.2) g/dl Albumin 2.2 L (3.4-5.0) g/dl Globulin 3.4 gm/dL Albumin/Globulin Ratio 0.7 L (1-2) Pete Results Last 24 Hours: Microbiology 12/01/20 21:13 Aerobic Blood Culture - Preliminary Blood - Venous - Lab Draw NO GROWTH AFTER 3 DAYS Anaerobic Blood Culture - Preliminary NO GROWTH AFTER 3 DAYS 12/01/20 21:03 Aerobic Blood Culture - Preliminary Blood - Venous NO GROWTH AFTER 3 DAYS Anaerobic Blood Culture - Preliminary NO GROWTH AFTER 3 DAYS Med Orders - Current: Current Medications Acetaminophen (Tylenol) 650 mg PO Q6H PRN PRN Reason: Pain Last Admin: 12/03/20 22:09 Dose: 650 mg Documented by: Albuterol (Proventil Hfa) 0 gm INH Q6H PRN PRN Reason: Shortness of Breath Last Admin: 12/04/20 18:13 Dose: 2 puff Documented by: Albuterol/Ipratropium (Duoneb 3.0-0.5 Mg/3 Ml) 3 ml NEB Q6HRRT PRN PRN Reason: wheezing/SOB/cough Last Admin: 12/05/20 06:26 Dose: 3 ml Documented by: Aspirin (Halfprin) 81 mg PO DAILY REPLACED BY [facility] Last Admin: 12/04/20 08:52 Dose: 81 mg Documented by: Benzocaine/Menthol (Cepacol Sore Throat) 1 lozenge MUCMEM Q2H PRN PRN Reason: throat irritation Last Admin: 12/04/20 06:40 Dose: 1 lozenge Documented by: Calcium Carbonate/Glycine (Tums) 1,000 mg PO BIDAC REPLACED BY [facility] Last Admin: 12/05/20 06:37 Dose: 1,000 mg Documented by: Enoxaparin Sodium (Lovenox) 50 mg SUBCUT Q12H REPLACED BY [facility] Last Admin: 12/04/20 20:01 Dose: 50 mg Documented by: Famotidine (Pepcid) 20 mg PO DAILY REPLACED BY [facility] Last Admin: 12/04/20 08:52 Dose: 20 mg Documented by: Piperacillin Sod/Tazobactam (Sod 4.5 gm/ Sodium Chloride) 100 mls @ 25 mls/hr IV Q8H REPLACED BY [facility] Last Admin: 12/05/20 06:36 Dose: 25 mls/hr Documented by: Loratadine (Claritin) 10 mg PO DAILY REPLACED BY [facility] Last Admin: 12/04/20 08:52 Dose: 10 mg Documented by: Metoprolol Succinate (Toprol Xl) 100 mg PO DAILY REPLACED BY [facility] Last Admin: 12/04/20 08:52 Dose: 100 mg Documented by: Metoprolol Tartrate (Lopressor) 5 mg IVPUSH Q4H PRN PRN Reason: Tachycardia Mometasone Furoate/Formoterol Fumar (Dulera 200-5 Mcg) 2 puff IH BID REPLACED BY [facility] Last Admin: 12/04/20 20:27 Dose: 2 puff Documented by: Multivitamins (Thera) 1 each PO DAILY REPLACED BY [facility] Last Admin: 12/04/20 08:52 Dose: 1 each Documented by: Ondansetron HCl (Zofran) 4 mg IVPUSH Q6HR PRN PRN Reason: Nausea/Vomiting Casodex ( Bicalutamide 50 Mg) Ptom 0 each PO DAILY REPLACED BY [facility] Last Admin: 12/04/20 09:50 Dose: 1 each Documented by: Prednisone (Prednisone) 5 mg PO BIDMEALS REPLACED BY [facility] Last Admin: 12/05/20 06:37 Dose: 5 mg Documented by: Senna/Docusate Sodium (Senna Plus) 1 tab PO BID REPLACED BY [facility] Last Admin: 12/04/20 20:01 Dose: Not Given Documented by: Tiotropium [place] (Spiriva Respimat) 0 gm INH DAILY REPLACED BY [facility] Warfarin Sodium (Pharmacy To Dose - Warfarin) 1 dose .XX ASDIRECTED PRN PRN Reason: RX TO DOSE WARFARIN Discontinued Medications Calcium Carbonate/Glycine (Tums) 1,000 mg PO DAILY REPLACED BY [facility] Enoxaparin Sodium (Lovenox) 50 mg SUBCUT Q12H REPLACED BY [facility] Last Admin: 12/02/20 22:13 Dose: 50 mg Documented by: Furosemide (Lasix) 20 mg IVPUSH ONETIME REPLACED BY [facility] Stop: 12/03/20 15:00 Furosemide (Lasix) 20 mg IVPUSH ONETIME ONE Stop: 12/03/20 08:58 Last Admin: 12/03/20 10:38 Dose: 20 mg Documented by: Furosemide (Lasix) 40 mg IVPUSH NOW ONE Stop: 12/04/20 19:41 Last Admin: 12/04/20 20:01 Dose: 40 mg Documented by: Sodium Chloride (Normal Saline) 1,000 mls @ 150 mls/hr IV ASDIRECTED REPLACED BY [facility] Last Admin: 12/01/20 20:46 Dose: 150 mls/hr Documented by: Levofloxacin/Dextrose 750 mg/ (Premix) 150 mls @ 100 mls/hr IV ONETIME STA Stop: 12/01/20 23:26 Last Admin: 12/01/20 22:45 Dose: 100 mls/hr Documented by: Metronidazole 500 mg/ Premix 100 mls @ 100 mls/hr IV ONETIME ONE Stop: 12/02/20 00:26 Last Admin: 12/01/20 23:45 Dose: 100 mls/hr Documented by: Sodium Chloride (Normal Saline) 1,000 mls @ 150 mls/hr IV ASDIRECTED REPLACED BY [facility] Last Admin: 12/02/20 11:50 Dose: 150 mls/hr Documented by: Metronidazole 500 mg/ Premix 100 mls @ 100 mls/hr IV Q8H REPLACED BY [facility] Levofloxacin/Dextrose 750 mg/ (Premix) 150 mls @ 100 mls/hr IV Q24H REPLACED BY [facility] Piperacillin Sod/Tazobactam (Sod 4.5 gm/ Sodium Chloride) 100 mls @ 25 mls/hr IV Q8H REPLACED BY [facility] Last Admin: 12/03/20 16:07 Dose: Not Given Documented by: Piperacillin Sod/Tazobactam (Sod 4.5 gm/ Sodium Chloride) 100 mls @ 200 mls/hr IV ONETIME ONE Stop: 12/02/20 03:38 Last Admin: 12/02/20 03:42 Dose: 200 mls/hr Documented by: Sodium Chloride (Normal Saline) 500 mls @ 999 mls/hr IV .BOLUS ONE Stop: 12/02/20 15:10 Last Admin: 12/02/20 14:59 Dose: 999 mls/hr Documented by: Sodium Chloride (Normal Saline) 250 mls @ 100 mls/hr IV ASDIRECTED REPLACED BY [facility] Metoprolol Succinate (Toprol Xl) 50 mg PO ONETIME ONE Stop: 12/02/20 14:41 Last Admin: 12/02/20 15:02 Dose: 50 mg Documented by: Metoprolol Tartrate (Lopressor) 5 mg IVPUSH ONETIME ONE Stop: 12/02/20 14:46 Last Admin: 12/02/20 15:01 Dose: 5 mg Documented by: Ondansetron HCl (Zofran) 4 mg IVPUSH ONETIME ONE Stop: 12/01/20 20:28 Last Admin: 12/01/20 20:46 Dose: 4 mg Documented by: Casodex ( Bicalutamide 50 Mg) Ptom 0 each PO DAILY REPLACED BY [facility] Last Admin: 12/03/20 09:16 Dose: 50 each Documented by: Potassium Chloride (Klor-Con M20) 40 meq PO BID REPLACED BY [facility] Stop: 12/03/20 09:01 Last Admin: 12/02/20 21:19 Dose: 40 meq Documented by: Tbo-Filgrastim (Granix) 270 mcg SQ ONETIME ONE Stop: 12/02/20 13:01 Last Admin: 12/02/20 14:05 Dose: 270 mcg Documented by: Tiotropium [place] (Spiriva Respimat) 0 gm INH DAILY REPLACED BY [facility] Last Admin: 12/04/20 08:09 Dose: 4 gm Documented by: Tramadol HCl (Ultram) 50 mg PO ONETIME ONE Stop: 12/02/20 01:43 Last Admin: 12/02/20 02:19 Dose: 50 mg Documented by: Warfarin Sodium (Coumadin) 3 mg PO QPM REPLACED BY [facility] Stop: 12/02/20 18:01 Last Admin: 12/02/20 19:36 Dose: 3 mg Documented by: Warfarin Sodium (Coumadin) 3 mg PO QPM REPLACED BY [facility] Stop: 12/03/20 18:01 Last Admin: 12/03/20 18:05 Dose: 3 mg Documented by: Warfarin Sodium (Coumadin) 3 mg PO QPM REPLACED BY [facility] Stop: 12/04/20 18:01 Last Admin: 12/04/20 18:16 Dose: 3 mg Documented by: - Exam Quality Assessment: Supplemental Oxygen General: Alert, Oriented, Cooperative, No Acute Distress HEENT: Pupils Equal, Pupils Reactive, EOMI, Mucous Membr. Moist/[place] Lungs: Normal Respiratory Effort, Decreased Breath Sounds, Crackles Cardiovascular: Regular Rate, Regular Rhythm GI/Abdominal Exam: Normal Bowel Sounds, Soft, Non-Tender, No Organomegaly, No Distention (Male) Exam: Deferred, Testicular Tenderness (R) Back Exam: Decreased Range of Motion Extremities: Normal Inspection, Normal Range of Motion, Non-Tender, No Pedal Edema, Normal Capillary Refill Skin: Warm, Dry, Intact, Ecchymosis Neurological: No New Focal Deficit Psy/Mental Status: Alert, Normal Affect, Normal Mood Sepsis Event Note - Evaluation Sepsis Screening Result: No Definite Risk - Focused Exam Vital Signs: Vital Signs Temp Pulse Resp BP Pulse Ox Pulse Ox Pulse Ox 12/05/20 07:40 100 108/64 93 L 12/05/20 07:07 96 12/05/20 07:04 94 L 12/05/20 04:02 36.5 C 85 16 102/61 93 L 12/05/20 03:15 99 12/05/20 00:09 99 12/04/20 23:48 36.8 C 93 120/67 100 12/04/20 21:45 99 12/04/20 21:35 100 12/04/20 20:31 100 - Problem List Review Problem List Initiated/Reviewed/Updated: Yes - Assessment Assessment:: Assessment - Day of admission: 12/02/2020 * 75 Yo male presents to ED with 2 week history of generalized weakness, dyspnea at rest, LLQ ab pain, nausea, vomiting, and cough * Denies fever, orthopnea, constipation, diarrhea, or urinary symptoms. * On 2L of oxygen in ED (baseline) with saturations of 97% * History of A-fib, HLD, HTN, COPD, Arthritis, Prostate cancer receiving Ctx and Rtx, Port-a-cath in right chest, porcine aortic and mitral valve replacement in 04/09/2014. Former smoker * 12-lead EKG in ED: Alternating a-fib and sinus rhythm wit tachycardia at 104 bpm. Variable p-waves and late transition noted with prolonged QTc. No change from 09/08/2018 * Labs: * WBC 0.07 * Hgb 8.6 * Plt 178 * INR 1.39 * D-Dimer 2.98 * Sodium 137-->138 * Potassium 3.6-->3.2 * Anion gap 9.6-->11.2 * BUN 25-->21 * Creatinine 1.0-->1.0 * GFR >60--> Greater than 60 * Calcium 7.4 (corrected 8.1)-->6.0 (corrected 7.3) * Bilirubin 2.3 * AST 29, ALT 29, Alk Phos 259 * Troponin I 0.119-->0.140 * Albumin 3.1-->2.4 * Lipase 126 * TSH 1.967 * ABG: Left radial, pH 7.47, PCO2 4 3.7, PO2 of 94, HCO3 of 31.2, O2 saturation 98.0, base excess 7.2, A-a gradient 51 * Lactic acid 1.2 * Influenza A, B, and SARS-CoV-2 RNA: Negative * ANC calculated at 70 * CXR in ED: Enlarged heart, Prosthetic heart valves, sternotomy and right sided port is noted; Nothing acute * CT of abdomen and pelvis in ED: * 1. Findings compatible with mild diverticulitis. * 2. Findings compatible with osseous metastatic disease. Retroperitoneal adenopathy is seen with adenopathy continuing along the left iliac chain. Slightly prominent lymph node within the left inguinal region is seen. These are most likely metastatic. * 3. Bladder wall thickening with small bladder diverticulum. Consider bladder ultrasound to further evaluate if clinical etiology is not known. * 4. Other findings as noted above which are nonacute. * CT angiogram of the chest in ED * 1. No findings of pulmonary embolism. * 2. Mild mediastinal adenopathy is seen. Several slightly prominent lymph nodes within the upper retroperitoneum at the diaphragmatic margin are seen. Diffuse osseous sclerotic metastatic changes seen throughout the osseous structures. * 3. Emphysematous change. No acute parenchymal process is seen. * Given Levaquin 750mg and Flagyl in ED * Patient is admitted to medical surgical floor on telemetry. * Dr. Zelaya on vacation. Discussed case with Coco Cottrell NP who recommended Granix, Claritin and Pepcid * Has follow-up appointment scheduled already on 12/15/20 prior to next infusion 12/03/2020 * Reports abdomen feels better today * Advance diet to neutropenic regular * Continue IV Zosyn * Given Granix yesterday * Obtain procalcitonin * Remains on 2L * Labs: * WBC 1.83 * Hgb 6.7 * Hct 22.0 * Absolute neutrophils 0.94 * INR 1.72 * Sodium 139 * Potassium 4.2 * GFR >60 * Calcium 6.1 * Bilirubin 1.4 * Troponin 0.114 * CRP 24.6 * Give 2 units PRBC with 20mg lasix between * Give 20 mg lasix now * Checking occult stool * Drop in Hgb is likely 2/2 IV rehydration and baseline anemia 2/2 chemotherapy. No current signs of active bleeding. 12/04/2020 * Flash pulmonary edema * Resolution of neutropenia s/p Granix * IV Zosyn for diverticulitis * Procalcitonin mildly elevated yesterday at 0.46 * Morning labs showed a decrease in C-reactive protein at 17.2, white blood cell count increased to 6.61 with 4.67 absolute neutrophil count. Continue toxic granulations on PMNs with few neutrophilic bands seen. * Patient started on BiPAP at 12/6 for his pulmonary edema. * Fecal occult blood testing was positive * Hemoglobin 9.5 from 6.7 after 2 units packed red blood cells 12/05/2020 * Clinically better this AM * Supplemental O2 back to baseline * Resolution of neutropenia s/p Granix * Continue IV Zosyn for diverticulitis * Procalcitonin mildly elevated yesterday at 0.46 * Resume home dose lasix and potassium supplement * CRP improving * Blood culture is negative * Fecal occult blood testing was positive * Hemoglobin 9.5 from 6.7 after 2 units packed red blood cells * LOS > 96 hrs, he needs more time with treatment. He is still diuresing - Plan Plan:: Diverticulitis * Blood cultures negative thus far * Continue Zosyn for antibiotic coverage * Tolerating diet * Antiemetics as indicated * Monitor vital signs * Heme-occult negative * Mildly elevated procalcitonin at 0.46 * CRP is now down to 11.5 S/p Pulmonary edema * Lasix 40 mg IV now and 20 mg IV in the morning * BiPAP 12/6 as long as tolerated. Respiratory therapist just contact me and st ated that he is having difficulty tolerating it. He can take a break from BiPAP but if he develops respiratory distress again he will need to restart the BiPAP. * 2/2 Volume overload * He feels much better and he back at his baseline home O2 Metastatic neoplasm Prostate cancer Severe neutropenia Leukocytopenia Port-A-Cath in place Generalized weakness Anemia S/p Hypotension * Access port * Neutropenic isolation * PT/OT * Obtain oncology notes * Monitor for fever * Discussed with oncology: gave Granix 12/02/20 and started daily Claritin and Pepcid for symptom reduction * CM/SW * Follow-up with oncology after discharge (has appt scheduled for 12/15/2020 * Received 2 units PRBC with 20mg lasix between * BP has been stable Atrial fibrillation Elevated troponin/NSTEMI Subtherapeutic international normalized ratio (INR), 1.66 History of aortic valve replacement with porcine valve History of mitral valve replacement with porcine valve * Follow INR * Pharmacy to dose warfarin * Bridge with Lovenox until INR is therapeutic Hypokalemia Hypoalbuminemia Hypocalcemia * Dietary consultation * Correct calcium calculation due to low albumin * Obtain ionized calcium * K is 3.1, will replete and monitor * Supplement calcium with Tums BID AC Metabolic alkalosis COPD (chronic obstructive pulmonary disease) with emphysema Former smoker * O2 as needed (Baseline 2L) * PRN albuterol * Continue home respiratory medications Code status: DNR/DNI PCP: Jones Mchugh NP Psychological Anthropologist: Dr. Garcia Oncologist: Dr. Zelaya DVT prophylaxis: Lovenox bridging until INR is therapeutic with warfarin Disposition: Admit to medical floor on telemetry for management of diverticulitis, subtherapeutic INR, and further discussion on metastatic disease. Prognosis: Poor overall given multiple metastatic findings
[2020-12-05] MEDS: Enoxaparin 60 MG/0.6 ML Syringe SUBCUT SCH ×2 (08:12→20:53)
[2020-12-05] MEDS: Famotidine 20 MG Tab PO SCH (08:12)
[2020-12-05] MEDS: Multivitamins,Therapeutic Tab PO SCH (08:12)
[2020-12-05] MEDS: Aspirin 81 MG Tab.EC PO SCH (08:12)
[2020-12-05] MEDS: Loratadine 10 MG Tab PO SCH (08:12)
[2020-12-05] MEDS: Metoprolol Succinate 50 MG Tab.ER PO SCH (08:19)
[2020-12-05] MEDS: Formoterol/Mometasone 200-5 MCG 8.8 GM Inhaler IH SCH ×2 (09:04→20:21)
[2020-12-05] MEDS: Tiotropium Bromide 4 GM Inhalation Spray (2.5mcg/1 dose; 10 doses) INH SCH (09:05)
[2020-12-05] MEDS: CASODEX PO SCH (09:10)
[2020-12-05] MEDS: Potassium Chloride 20 MEQ Tab.ER PO SCH ×2 (14:32→20:53)
[2020-12-05] MEDS ORDERED: guaiFENesin/Dextromethorphan 100-10 MG/5 ML Soln 5 ML Cup PO PRN (16:51)
[2020-12-05] MEDS ORDERED: Warfarin 5 MG Tab PO SCH (18:00)
[2020-12-06] MEDS: Calcium Carbonate 500 MG Tab.Chew PO SCH (06:30)
[2020-12-06] MEDS: Piperacillin/Tazobactam 4.5 GM in Sodium Chloride 0.9% 100 ML IV SCH (06:31)
[2020-12-06] MEDS: predniSONE 5 MG Tab PO SCH (06:31)
[2020-12-06] MEDS: Tiotropium Bromide 4 GM Inhalation Spray (2.5mcg/1 dose; 10 doses) INH SCH (08:50)
[2020-12-06] MEDS: Formoterol/Mometasone 200-5 MCG 8.8 GM Inhaler IH SCH (08:50)
[2020-12-06] MEDS: Metoprolol Succinate 50 MG Tab.ER PO SCH (08:56)
[2020-12-06] MEDS: Famotidine 20 MG Tab PO SCH (08:57)
[2020-12-06] MEDS: Potassium Chloride 20 MEQ Tab.ER PO SCH (08:57)
[2020-12-06] MEDS: Loratadine 10 MG Tab PO SCH (08:57)
[2020-12-06] MEDS: Aspirin 81 MG Tab.EC PO SCH (08:57)
[2020-12-06] MEDS: Multivitamins,Therapeutic Tab PO SCH (08:58)
[2020-12-06] MEDS: Enoxaparin 60 MG/0.6 ML Syringe SUBCUT SCH (09:00)
[2020-12-06] MEDS ORDERED: Furosemide 40 MG Tab PO SCH (09:00)
[2020-12-06] MEDS: CASODEX PO SCH (09:07)
--- NOTE | 2020-12-06 10:53 | CR ---
Chest: 2 views of the chest were obtained. Comparison: Prior chest x-ray of 12/04/20. Heart is enlarged. Upper mediastinum is normal. Right-sided infusion catheter is seen. 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 Sternotomy is present. Small right-sided pleural effusion is seen. Right lung is slightly improved from prior exam. 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 No additional abnormality is noted. Impression: 1. Small right-sided pleural effusion. 2. Pulmonary vessels felt to be slightly congested but findings are improved from prior exam. 3. Other findings as noted above. Diagnostic code #3
--- NOTE | 2020-12-06 11:49 | PCM.DCSUM1 ---
Discharge Summary - Hospital Course HPI Initial Comments: This is a 75-year-old male who presents to ED on 12/01/2020 via [facility] with a 2-week history of generalized weakness, dyspnea at rest, left lower quad abdominal pain, nausea, vomiting, and productive cough. He did have 1 episode of emesis in the ambulance. Denies any recent fever, constipation, diarrhea, urinary symptoms, or orthopnea. Denies any home treatment. He was given a nebulizer in route to the ED and was found to be tachycardic with a heart rate of 102, but was otherwise afebrile. He is on 2 L of oxygen, which is his baseline, and saturations are 97%. In the ED twelve-lead EKG is obtained showing a alternating A. fib and sinus rhythm at a rate of 104 bpm. He was variable and there is late transition noted along with a prolonged QTC of 503. There is no change from 09/08/2018. Labs are obtained showing a WBC of 0.70. Hemoglobin is 8.6. Hematocrit 27.4. He is normocytic. Platelets are 178. Neutrophils are low at 10%. There is no bandemia. INR is 1.39. D-dimer is 2.98. Sodium 137. Potassium 3.6. Chloride 98. Carbon dioxide 33. Anion gap 9.6. BUN is 25. Creatinine 1.0. GFR is greater than 60. Glucose 144. Calcium of 7.4. Magnesium 2.2. Bilirubin 2.3. AST is 29, ALT is 29, alkaline phosphatase is 259. Troponin 0 0.119. Protein 6.6. Albumin 3.1. Lipase 126. TSH is 1.967. ABG is obtained in the left radial with a pH of 7.47, PCO2 of 43.7. PO2 of 94. HCO3 is 31.2. O2 saturation is 98.0. Base excess is 7.2. A-a gradient is 51. We will on 2 L via nasal cannula. Lactic acid is 1.2. Influenza a and B and SARS-CoV-2 RNA are all negative. UA is obtained and is negative however 1+ protein is noted. Cultures are obtained and are pending. Chest x-ray notes an enlarged heart with static heart valves and sternotomy wires. Right-sided infusion port is noted. Nothing acute is seen. CT scan of the abdomen and pelvis is interpreted by Dr. Cano as "1. Findings compatible with mild diverticulitis. 2. Findings compatible with osseous metastatic disease. Retroperitoneal adenopathy is seen with adenopathy continuing along the left iliac chain. Slightly prominent lymph node within the left inguinal region is seen. These are most likely metastatic. 3. Bladder wall thickening with bladder diverticulum. Consider bladder ultrasound to further evaluate if clinical etiology is not known. 4. Other findings as noted above which are nonacute." CT angiogram of the chest is obt ained interpreted by Dr. Cano as "1. No findings of pulmonary embolism. 2. Mild mediastinal adenopathy is seen. Several slightly prominent lymph nodes within the upper retroperitoneum at the diaphragmatic margin are seen. Diffuse osteosclerotic metastatic changes seen through the osseous structure. 3. Emphysematous change. No acute parenchymal process is seen." He started on NS at 750 mg of Levaquin and 500 mg metronidazole. He is also given tramadol and Zofran. Per the ED note patient is aware that his prostate cancer is "pretty bad" and he agrees to being admitted to the hospital. He carries a history of A. fib, HLD, hypertension, COPD, arthritis, prostate cancer and is receiving chemotherapy and radiation therapy, catheter placement in right chest, porcine aortic and mitral valve replacement on 04/09/2014. He is a former smoker. His PCP is Heather Mchugh NP. His Administrative Executive is Dr. Ricki Garcia. His oncologist is Dr. Jeison Zelaya. He is subsequently admitted to the medical floor for management of his diverticulitis and neutropenia with further discussion into his significant metastatic disease. He is a DNR/DNI. Diagnosis: Stroke: No - Discharge Data Discharge Date: 12/06/20 (Admit date: 12/02/20) Discharge Disposition: Home, W Home Health Agency 06 Condition: Good - Referral to Home Health Date of Face to Face Encounter: 12/06/20 Reason for Homebound Status: See discharge summary Primary Care Physician: Heather Mchugh NP Skilled Need: See discharge summary - Discharge Diagnosis/Problem(s) (1) Metastatic neoplasm SNOMED Code(s): 747780062 ICD Code: C79.9 - SECONDARY MALIGNANT NEOPLASM OF UNSPECIFIED SITE Status: Acute Priority: High Current Visit: Yes Qualifiers: Area of secondary neoplastic involvement: unspecified site Qualified Code(s): C79.9 - Secondary malignant neoplasm of unspecified site (2) Atrial fibrillation SNOMED Code(s): 12445046 ICD Code: I48.91 - UNSPECIFIED ATRIAL FIBRILLATION Status: Chronic Priority: Medium Current Visit: No Qualifiers: Atrial fibrillation type: paroxysmal Qualified Code(s): I48.0 - Paroxysmal atrial fibrillation (3) Diverticulitis SNOMED Code(s): 572726136 ICD Code: K57.92 - DVTRCLI OF INTEST, PART UNSP, W/O PERF OR ABSCESS W/O BLEED Status: Acute Priority: High Current Visit: Yes (4) Elevated troponin SNOMED Code(s): 605085010, 503590015, 859933066 ICD Code: R77.8 - OTHER SPECIFIED ABNORMALITIES OF PLASMA PROTEINS Status: Acute Priority: High Current Visit: Yes (5) Metabolic alkalosis SNOMED Code(s): 7742895 ICD Code: E87.3 - ALKALOSIS Status: Acute Priority: High Current Visit: Yes (6) Prostate cancer SNOMED Code(s): 374789630 ICD Code: C61 - MALIGNANT NEOPLASM OF PROSTATE Status: Chronic Priority: High Current Visit: Yes (7) Severe neutropenia SNOMED Code(s): 171699197 ICD Code: D70.9 - NEUTROPENIA, UNSPECIFIED Status: Acute Priority: High Current Visit: Yes (8) Subtherapeutic international normalized ratio (INR) SNOMED Code(s): 167449230, 153133517 ICD Code: R79.1 - ABNORMAL COAGULATION PROFILE Status: Acute Priority: High Current Visit: Yes (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 SNOMED Code(s): 42031360 ICD Code: J43.9 - EMPHYSEMA, UNSPECIFIED Status: Chronic Priority: Medium Current Visit: No Qualifiers: Emphysema type: panlobular Qualified Code(s): J43.1 - Panlobular emphysema (10) Port-A-Cath in place SNOMED Code(s): 820115553 ICD Code: Z95.828 - PRESENCE OF OTHER VASCULAR IMPLANTS AND GRAFTS Status: Chronic Priority: Medium Current Visit: No (11) History of aortic valve replacement with porcine valve SNOMED Code(s): 20276541286117, 240145530, 93301832714601 ICD Code: Z95.3 - PRESENCE OF XENOGENIC HEART VALVE Status: Chronic Priority: Low Current Visit: No (12) History of mitral valve replacement with porcine valve SNOMED Code(s): 53083081342264 ICD Code: Z95.3 - PRESENCE OF XENOGENIC HEART VALVE Status: Chronic Priority: Low Current Visit: No (13) Former smoker SNOMED Code(s): 8441368 ICD Code: Z87.891 - PERSONAL HISTORY OF NICOTINE DEPENDENCE Status: Chronic Priority: Low Current Visit: No (14) Hypokalemia SNOMED Code(s): 61358872 ICD Code: E87.6 - HYPOKALEMIA Status: Acute Priority: High Current Visit: Yes (15) Hypoalbuminemia SNOMED Code(s): 771557539 ICD Code: E88.09 - OTH DISORDERS OF PLASMA-PROTEIN METABOLISM, NEC Status: Acute Priority: High Current Visit: Yes (16) Generalized weakness SNOMED Code(s): 17797909 ICD Code: R53.1 - WEAKNESS Status: Acute Priority: High Current Visit: Yes (17) Hypocalcemia SNOMED Code(s): 6401487 ICD Code: E83.51 - HYPOCALCEMIA Status: Acute Priority: High Current Visit: Yes (18) Anemia SNOMED Code(s): 952161983 ICD Code: D64.9 - ANEMIA, UNSPECIFIED Status: Acute Priority: High Current Visit: Yes Qualifiers: Anemia type: unspecified type Qualified Code(s): D64.9 - Anemia, unspecified (19) Hypotension SNOMED Code(s): 39406875 ICD Code: I95.9 - HYPOTENSION, UNSPECIFIED Status: Chronic Priority: Medium Current Visit: Yes Qualifiers: Hypotension type: unspecified hypotension type Qualified Code(s): I95.9 - Hypotension, unspecified - Patient Summary/Data Consults: Consultations 12/02/20 11:03 Consult to Occupational Therapy [OT Evaluation and Treatment] [CONS] Routine PT Evaluation and Treatment [CONS] Routine 12/02/20 11:21 Consult to Case Management/Retail Coverage Merchandiser [CONS] Routine Consult to Courtesy Bus Driver [CONS] Routine Labs Pending at D/C: None Recommended Follow-up Testing/Procedures: Follow-up with PCP within 5-7 days of discharge, sooner if needed. -Recommend repeat CBC, CMP, Magnesium and consider CXR at that appointment. Repeat INR on 12/09/20 with results to PCP Heather Mchugh NP - ordered Follow-up with Oncology - Dr. Zelaya, as scheduled. Hospital Course: 5-year-old male who presented to the ED on 12/02/2020 with a 2-week history of generalized weakness, dyspnea at rest, left lower quadrant abdominal pain, nausea, vomiting, and cough. Denies any fever, orthopnea, constipation, diarrhea, urinary symptoms. He is chronically on 2 L of oxygen and carries a history of A. fib, HLD, hypertension, COPD, arthritis, prostate cancer currently receiving chemotherapy and radiation therapy, Port-A-Cath in right chest, porcine aortic and mitral valve replacement on 04/09/2014, and a former smoker. In the ED WBC was 0.[address] scan was compatible with mild diverticulitis. CT scan also noted a significant metastatic disease. D-dimer was elevated and CT angiogram of the chest was obtained showing no findings of PE but mediastinal adenopathy is noted along with prominent lymph nodes in the upper retroperitoneum and diaphragmatic margin. Osseous metastatic changes are also noted. There is no parenchymal density. Contacted [facility] and patient's primary oncologist is on vacation so spoke with Coco Cottrell NP recommended we give the patient a dose of Granix along with Claritin and Pepcid for side effect medication. He already has a follow-up appointment scheduled on 12/15/2020 prior to his next infusion. He was started on IV Zosyn and has been doing quite well. He was given IV fluids and his hemoglobin did drop to 6.7. This is likely a combination of result of his chemotherapy and delusional. There were no concerns for sepsis. He was given 2 units of PRBC and 20 mg Lasix IV push between both units. Was obtained and was positive. His WBC did improve significantly secondary to the Granix. On 12/04/2020 he was noted to have some flash pulmonary edema and this did resolve with diuresis and BiPAP. Home Lasix and potassium supplement was restarted. Blood cultures remain negative. Diet was advanced to regular without difficulty. He worked with PT/OT who are recommending home health PT/OT and COMP FIELD CASE MANAGER. He did see our dietitian. Throughout his stay his INR was low and pharmacy was dosing his warfarin. I did reach out to patient's [facility] who reported that he has been quite variable for some time. We will increase his dosing to 3 mg daily at discharge and have his INR rechecked on 12/09/2020. Results of this will be sent to his primary care provider. He will be discharged on 500 mg twice daily Cipro and 500 mg 3 times daily Flagyl for a total of 10 days of treatment. He was instructed to follow-up with his primary care provider within 5 to 7 days of discharge, sooner if needed. Recommend recheck CBC, CMP, magnesium, and possibly INR depending on how far away this was from patient's last check. He was discharged home today. He was told to continue utilizing 2 L of oxygen at rest and 3 L with activity, as prior. I personally met with Tyson to discuss his homebound status. He has significant metastatic cancer and is chronically weak and short of breath. Saturations can dip down into the 60s with ambulation. While at our facility he was seen by PT/OT and our team is recommending he continue home health PT for strengthening, home health OT for strengthening and continued ADL training. We are also recommending home health COMP FIELD CASE MANAGER for assistance with bathing and other ADLs. The services can be monitored by the patient's primary care provider, Heather Mchugh NP, and adjusted as she sees fit. - Patient Instructions Diet: Usual Diet as Tolerated Activity: As Tolerated Showering/Bathing: May Shower Notify Provider of: Fever, Increased Pain, Nausea and/or Vomiting Other/Special Instructions: Follow-up with primary care provider kim 5-7 days of discharge, sooner if needed. Follow-up with oncology, Dr. Zelaya, as scheduled. You were prescribed an antibiotic for your diverticulitis. You should continue this until completed, even if you feel 100% better. Your INR has been variable while here. Recommend repeat INR on (12/09/20 - lab draw ordered). Results will be sent to your primary care provider. Continue to utilize your acapella (green tube you blow through) and incentive spirometer (clear/blue device you inhale through) for another 1-2 weeks or until symptoms resolve. Resume home medications as directed. Note that your warfarin dosing has changed as your INR was quite low throughout your stay here. Be sure to take the higher dosage. Should symptoms return or worsen contact primary care provider or return to the Emergency Department. - Discharge Plan *PRESCRIPTION DRUG MONITORING PROGRAM REVIEWED*: No *COPY OF PRESCRIPTION DRUG MONITORING REPORT IN PATIENT SANDIP: No Prescriptions/Med Rec: Ciprofloxacin HCl [Cipro] 500 mg PO Q12HR #13 tablet Warfarin [Coumadin] 3 mg PO DAILY #30 tab metroNIDAZOLE [Metronidazole] 500 mg PO Q8HR #19 tablet Home Medications: Home Meds Albuterol Sulfate [Albuterol Sulfate HFA] 2 puff IH Q6H PRN 05/21/14 [History] Aspirin [Adult Low Dose Aspirin EC] 81 mg PO DAILY 05/21/14 [History] Budesonide/Formoterol [Symbicort 160-4.5 MCG] 2 puff INH BID 05/21/14 [History] Furosemide [Lasix] 40 mg PO DAILY 05/21/14 [History] Metoprolol Succinate [Toprol XL] 100 mg PO DAILY 05/21/14 [History] Potassium Chloride [Klor-Con M20] 20 meq PO BID 05/21/14 [History] Tiotropium [Spiriva Handihaler] 18 mcg INH DAILY 05/21/14 [History] Fish Oil/DHA/EPA [Fish Oil 1,200 MG] 1,200 mg PO DAILY 01/20/18 [History] Flaxseed Oil [Flaxseed] 1,000 mg PO DAILY 01/20/18 [History] Magnesium 400 mg PO DAILY 01/20/18 [History] Ubidecarenone [Coenzyme Q10] 10 mg PO DAILY 01/20/18 [History] Pravastatin [Pravachol] 80 mg PO DAILY 09/08/18 [History] Bicalutamide [Casodex] 50 mg PO DAILY 12/02/20 [History] Calcium Carbonate/Vitamin D3 [Calcium 500-Vit D3 200 Tablet] 1 tab PO BIDMEALS 12/02/20 [History] Diphenhyd/Lidocaine/Nystatin [Magic Mouthwash] 15 ml PO TID PRN 12/02/20 [History] Hydrocodone/Acetaminophen [Hydrocodone-Acetamin 7.5-325] 1 tab PO Q6HR PRN 12/02/20 [History] Lidocaine/Prilocaine [Lido-Prilo Vinod Pack] 1 applic TOP ASDIRECTED PRN 12/02/20 [History] Loperamide HCl [Loperamide] 2 tab PO ASDIRECTED PRN 12/02/20 [History] Multivitamin [Multi-Vitamin Daily] 1 tab PO DAILY 12/02/20 [History] Prochlorperazine [Compazine] 10 mg PO QID PRN 12/02/20 [History] Sennosides/Docusate Sodium [Senna Plus 8.6-50 mg Tablet] 1 tab PO BID 12/02/20 [History] Simethicone 80 mg PO Q2H PRN 12/02/20 [History] predniSONE [Prednisone] 5 mg PO BIDMEALS 12/02/20 [History] traMADol [Ultram] 50 - 100 mg PO Q4H PRN 12/02/20 [History] Ciprofloxacin HCl [Cipro] 500 mg PO Q12HR #13 tablet 12/06/20 [Rx] Warfarin [Coumadin] 3 mg PO DAILY #30 tab 12/06/20 [Rx] metroNIDAZOLE [Metronidazole] 500 mg PO Q8HR #19 tablet 12/06/20 [Rx] Oxygen Therapy Mode: Nasal Cannula Oxygen Flow Rate (L/min): 2 (2-3L ) Maintain SpO2% greater than: 90 Patient Handouts: How to Use an Incentive Spirometer, What You Need to Know About Warfarin, Diverticulitis, Sepsis, Diagnosis, Adult Forms: ED Department Discharge Referrals: Heather Mchugh NP [Primary Care Provider] - 12/13/20 10:45 am (Hospital follow-up appointment.) Jeison Zelaya MD [Ordering Only Provider] - - Discharge Summary/Plan Comment DC Time >30 min.: Yes (45 mins ) - General Info Date of Service: 12/06/20 Admission Dx/Problem (Free Text: Admission Diagnosis/Problem Admission Diagnosis/Problem Diverticulitis Functional Status: Reports: Pain Controlled, Tolerating Diet, Incentive Spirometry, Other (acapella ). Denies: New Symptoms - Review of Systems General: Reports: No Symptoms. Denies: Fever, Fatigue, Malaise, Chills HEENT: Reports: No Symptoms. Denies: Headaches, Visual Changes Pulmonary: Reports: Shortness of Breath (baseline ), Cough (baseline ). Denies: Pleuritic Chest Pain, Wheezing Cardiovascular: Reports: Dyspnea on Exertion (baseline ). Denies: Chest Pain, Palpitations, Edema Gastrointestinal: Reports: No Symptoms. Denies: Abdominal Pain, Constipation, Diarrhea, Nausea, Vomiting Genitourinary: Reports: No Symptoms. Denies: Pain Musculoskeletal: Reports: No Symptoms Skin: Reports: No Symptoms. Denies: Cyanosis Neurological: Reports: No Symptoms. Denies: Confusion, Numbness, Tingling, Difficulty Walking, Weakness, Gait Disturbance Psychiatric: Reports: No Symptoms - Patient Data Vitals - Most Recent: Last Vital Signs Temp 97.3 F 12/06/20 08:53 Pulse 103 H 12/06/20 08:56 Resp 20 12/06/20 08:53 BP 120/72 12/06/20 08:56 Pulse Ox 96 12/06/20 08:53 Weight - Most Recent: 123 lb 1.6 oz I&O - Last 24 hours: Intake & Output 12/05/20 12/06/20 12/06/20 22:59 06:59 14:59 Intake Total 800 400 Output Total 375 900 250 Balance 425 -500 -250 Lab Results - Last 24 hrs: Laboratory Results - last 24 hr 12/06/20 12/06/20 12/06/20 Range/Units 04:46 04:46 04:46 WBC 9.18 H (4.23-9.07) K/mm3 RBC 3.34 L (4.63-6.08) M/mm3 Hgb 9.5 L (13.7-17.5) gm/dl Hct 30.9 L (40.1-51.0) % MCV 92.5 H (79.0-92.2) fl MCH 28.4 (25.7-32.2) pg MCHC 30.7 L (32.2-35.5) g/dl RDW Std Deviation 56.8 H (35.1-43.9) fL Plt Count 164 (163-337) K/mm3 MPV 9.4 (9.4-12.3) fl Neut % (Auto) 69.6 H (34.0-67.9) % Lymph % (Auto) 6.0 L (21.8-53.1) % [place] % (Auto) 7.8 (5.3-12.2) % Eos % (Auto) 0 L (0.8-7.0) Baso % (Auto) 0.8 (0.1-1.2) % Neut # (Auto) 6.39 H (1.78-5.38) K/mm3 Lymph # (Auto) 0.55 L (1.32-3.57) K/mm3 [place] # (Auto) 0.72 (0.30-0.82) K/mm3 Eos # (Auto) 0.00 L (0.04-0.54) K/mm3 Baso # (Auto) 0.07 (0.01-0.08) K/mm3 Manual Slide Review Abnormal smear PT 18.0 H (9.7-12.0) SECONDS INR 1.70 Sodium 144 (136-145) mEq/L Potassium 3.9 (3.5-5.1) mEq/L Chloride 104 (98-107) mEq/L Carbon Dioxide 34 H (21-32) mEq/L Anion Gap 9.9 (5-15) BUN 16 (7-18) mg/dL Creatinine 0.7 (0.7-1.3) mg/dL Est Cr Clr Drug Dosing 70.36 mL/min Estimated GFR (MDRD) > 60 (>60) mL/min BUN/Creatinine Ratio 22.9 H (14-18) Glucose 113 (83-115) mg/dL Calcium 8.1 L (8.5-10.1) mg/dL Magnesium 2.0 (1.8-2.4) mg/dl Total Bilirubin 0.9 (0.2-1.0) mg/dL AST 26 (15-37) U/L ALT 20 (16-63) U/L Alkaline Phosphatase 129 H (46-116) U/L C-Reactive Protein 7.1 H* (<1.0) mg/dL Total Protein 5.7 L (6.4-8.2) g/dl Albumin 2.3 L (3.4-5.0) g/dl Globulin 3.4 gm/dL Albumin/Globulin Ratio 0.7 L (1-2) CLAUDIO Results - Last 24 hrs: Microbiology 12/01/20 21:13 Aerobic Blood Culture - Preliminary Blood - Venous - Lab Draw NO GROWTH AFTER 4 DAYS Anaerobic Blood Culture - Preliminary NO GROWTH AFTER 4 DAYS 12/01/20 21:03 Aerobic Blood Culture - Preliminary Blood - Venous NO GROWTH AFTER 4 DAYS Anaerobic Blood Culture - Preliminary NO GROWTH AFTER 4 DAYS Med Orders - Current: Current Medications Acetaminophen (Tylenol) 650 mg PO Q6H PRN PRN Reason: Pain Last Admin: 12/03/20 22:09 Dose: 650 mg Documented by: Albuterol (Proventil Hfa) 0 gm INH Q6H PRN PRN Reason: Shortness of Breath Last Admin: 12/04/20 18:13 Dose: 2 puff Documented by: Albuterol/Ipratropium (Duoneb 3.0-0.5 Mg/3 Ml) 3 ml NEB Q6HRRT PRN PRN Reason: wheezing/SOB/cough Last Admin: 12/05/20 06:26 Dose: 3 ml Documented by: Aspirin (Halfprin) 81 mg PO DAILY [facility] Last Admin: 12/06/20 08:57 Dose: 81 mg Documented by: Benzocaine/Menthol (Cepacol Sore Throat) 1 lozenge MUCMEM Q2H PRN PRN Reason: throat irritation Last Admin: 12/04/20 06:40 Dose: 1 lozenge Documented by: Calcium Carbonate/Glycine (Tums) 1,000 mg PO BIDAC [facility] Last Admin: 12/06/20 06:30 Dose: 1,000 mg Documented by: Enoxaparin Sodium (Lovenox) 50 mg SUBCUT Q12H [facility] Last Admin: 12/06/20 09:00 Dose: 50 mg Documented by: Famotidine (Pepcid) 20 mg PO DAILY [facility] Last Admin: 12/06/20 08:57 Dose: 20 mg Documented by: Furosemide (Lasix) 40 mg PO DAILY [facility] Last Admin: 12/06/20 08:58 Dose: 40 mg Documented by: Guaifenesin/Phenylephrine HCl (Robitussin Dm) 5 ml PO Q4H PRN PRN Reason: Cough Last Admin: 12/05/20 23:50 Dose: 5 ml Documented by: Piperacillin Sod/Tazobactam (Sod 4.5 gm/ Sodium Chloride) 100 mls @ 25 mls/hr IV Q8H [facility] Last Admin: 12/06/20 06:31 Dose: 25 mls/hr Documented by: Loratadine (Claritin) 10 mg PO DAILY [facility] Last Admin: 12/06/20 08:57 Dose: 10 mg Documented by: Metoprolol Succinate (Toprol Xl) 100 mg PO DAILY [facility] Last Admin: 12/06/20 08:56 Dose: 100 mg Documented by: Metoprolol Tartrate (Lopressor) 5 mg IVPUSH Q4H PRN PRN Reason: Tachycardia Mometasone Furoate/Formoterol Fumar (Dulera 200-5 Mcg) 2 puff IH BID [facility] Last Admin: 12/06/20 08:50 Dose: 2 puff Documented by: Multivitamins (Thera) 1 each PO DAILY [facility] Last Admin: 12/06/20 08:58 Dose: 1 each Documented by: Ondansetron HCl (Zofran) 4 mg IVPUSH Q6HR PRN PRN Reason: Nausea/Vomiting Casodex ( Bicalutamide 50 Mg) Ptom 0 each PO DAILY [facility] Last Admin: 12/06/20 09:07 Dose: 1 each Documented by: Potassium Chloride (Klor-Con M20) 20 meq PO BID [facility] Last Admin: 12/06/20 08:57 Dose: 20 meq Documented by: Prednisone (Prednisone) 5 mg PO BIDMEALS [facility] Last Admin: 12/06/20 06:31 Dose: 5 mg Documented by: Senna/Docusate Sodium (Senna Plus) 1 tab PO BID [facility] Last Admin: 12/06/20 08:58 Dose: 1 tab Documented by: Tiotropium [place] (Spiriva Respimat) 0 gm INH DAILY [facility] Last Admin: 12/06/20 08:50 Dose: 4 gm Documented by: Warfarin Sodium (Pharmacy To Dose - Warfarin) 1 dose .XX ASDIRECTED PRN PRN Reason: RX TO DOSE WARFARIN Discontinued Medications Calcium Carbonate/Glycine (Tums) 1,000 mg PO DAILY [facility] Enoxaparin Sodium (Lovenox) 50 mg SUBCUT Q12H [facility] Last Admin: 12/02/20 22:13 Dose: 50 mg Documented by: Furosemide (Lasix) 20 mg IVPUSH ONETIME [facility] Stop: 12/03/20 15:00 Furosemide (Lasix) 20 mg IVPUSH ONETIME ONE Stop: 12/03/20 08:58 Last Admin: 12/03/20 10:38 Dose: 20 mg Documented by: Furosemide (Lasix) 40 mg IVPUSH NOW ONE Stop: 12/04/20 19:41 Last Admin: 12/04/20 20:01 Dose: 40 mg Documented by: Sodium Chloride (Normal Saline) 1,000 mls @ 150 mls/hr IV ASDIRECTED [facility] Last Admin: 12/01/20 20:46 Dose: 150 mls/hr Documented by: Levofloxacin/Dextrose 750 mg/ (Premix) 150 mls @ 100 mls/hr IV ONETIME STA Stop: 12/01/20 23:26 Last Admin: 12/01/20 22:45 Dose: 100 mls/hr Documented by: Metronidazole 500 mg/ Premix 100 mls @ 100 mls/hr IV ONETIME ONE Stop: 12/02/20 00:26 Last Admin: 12/01/20 23:45 Dose: 100 mls/hr Documented by: Sodium Chloride (Normal Saline) 1,000 mls @ 150 mls/hr IV ASDIRECTED [facility] Last Admin: 12/02/20 11:50 Dose: 150 mls/hr Documented by: Metronidazole 500 mg/ Premix 100 mls @ 100 mls/hr IV Q8H [facility] Levofloxacin/Dextrose 750 mg/ (Premix) 150 mls @ 100 mls/hr IV Q24H [facility] Piperacillin Sod/Tazobactam (Sod 4.5 gm/ Sodium Chloride) 100 mls @ 25 mls/hr IV Q8H [facility] Last Admin: 12/03/20 16:07 Dose: Not Given Documented by: Piperacillin Sod/Tazobactam (Sod 4.5 gm/ Sodium Chloride) 100 mls @ 200 mls/hr IV ONETIME ONE Stop: 12/02/20 03:38 Last Admin: 12/02/20 03:42 Dose: 200 mls/hr Documented by: Sodium Chloride (Normal Saline) 500 mls @ 999 mls/hr IV .BOLUS ONE Stop: 12/02/20 15:10 Last Admin: 12/02/20 14:59 Dose: 999 mls/hr Documented by: Sodium Chloride (Normal Saline) 250 mls @ 100 mls/hr IV ASDIRECTED [facility] Vancomycin HCl 1 gm/ Sodium (Chloride) 250 mls @ 250 mls/hr IV Q12H [facility] Vancomycin HCl 1 gm/ Sodium (Chloride) 250 mls @ 250 mls/hr IV Q24H [facility] Last Admin: 12/05/20 19:56 Dose: Not Given Documented by: Metoprolol Succinate (Toprol Xl) 50 mg PO ONETIME ONE Stop: 12/02/20 14:41 Last Admin: 12/02/20 15:02 Dose: 50 mg Documented by: Metoprolol Tartrate (Lopressor) 5 mg IVPUSH ONETIME ONE Stop: 12/02/20 14:46 Last Admin: 12/02/20 15:01 Dose: 5 mg Documented by: Ondansetron HCl (Zofran) 4 mg IVPUSH ONETIME ONE Stop: 12/01/20 20:28 Last Admin: 12/01/20 20:46 Dose: 4 mg Documented by: Casodex ( Bicalutamide 50 Mg) Ptom 0 each PO DAILY [facility] Last Admin: 12/03/20 09:16 Dose: 50 each Documented by: Potassium Chloride (Klor-Con M20) 40 meq PO BID KWADWO Stop: 12/03/20 09:01 Last Admin: 12/02/20 21:19 Dose: 40 meq Documented by: Tbo-Filgrastim (Granix) 270 mcg SQ ONETIME ONE Stop: 12/02/20 13:01 Last Admin: 12/02/20 14:05 Dose: 270 mcg Documented by: Tiotropium [place] (Spiriva Respimat) 0 gm INH DAILY [facility] Last Admin: 12/04/20 08:09 Dose: 4 gm Documented by: Tramadol HCl (Ultram) 50 mg PO ONETIME ONE Stop: 12/02/20 01:43 Last Admin: 12/02/20 02:19 Dose: 50 mg Documented by: Vancomycin HCl (Pharmacy To Dose - Vancomycin) 1 dose .XX Q24H [facility] Last Admin: 12/05/20 20:16 Dose: Not Given Documented by: Warfarin Sodium (Coumadin) 3 mg PO QPM [facility] Stop: 12/02/20 18:01 Last Admin: 12/02/20 19:36 Dose: 3 mg Documented by: Warfarin Sodium (Coumadin) 3 mg PO QPM [facility] Stop: 12/03/20 18:01 Last Admin: 12/03/20 18:05 Dose: 3 mg Documented by: Warfarin Sodium (Coumadin) 3 mg PO QPM [facility] Stop: 12/04/20 18:01 Last Admin: 12/04/20 18:16 Dose: 3 mg Documented by: Warfarin Sodium (Coumadin) 5 mg PO QPM [facility] Stop: 12/05/20 18:01 Last Admin: 12/05/20 18:47 Dose: 5 mg Documented by: - Exam Quality Assessment: Reports: Supplemental Oxygen, DVT Prophylaxis General: Reports: Alert, Oriented, Cooperative, No Acute Distress HEENT: Reports: Pupils Equal, Pupils Reactive, Mucous Membr. Moist/Combined Locks Neck: Reports: Supple, Trachea Midline Lungs: Reports: Normal Respiratory Effort, Decreased Breath Sounds, Rales Cardiovascular: Reports: Regular Rate, Regular Rhythm GI/Abdominal Exam: Normal Bowel Sounds, Soft, Non-Tender, No Distention (Male) Exam: Deferred Rectal (Males) Exam: Deferred Back Exam: Reports: Normal Inspection, Full Range of Motion Extremities: Normal Inspection, Normal Range of Motion, Non-Tender, No Pedal Edema, Normal Capillary Refill Skin: Reports: Warm, Dry, Intact Neurological: Reports: No New Focal Deficit Psy/Mental Status: Reports: Alert, Normal Affect, Normal Mood
[2020-12-06] MEDS ORDERED: Warfarin 5 MG Tab PO SCH (18:00)
== END 2020-12-06 13:13 | disposition home health service (06) | DRG 392 ==
LOC: JD.ED 19:38 → JD.MS 12-02 00:05
PROVIDERS: ADMIT Family Medicine; ATTEND Family Medicine
PROC: 30233N1 Transfusion of Nonautologous Red Blood Cells into Peripheral Vein, Percutaneous Approach (ICD-10-PCS; principal; 2020-12-01)
DX: K57.92 Diverticulitis of intestine, part unspecified, without perforation or abscess without bleeding (principal); C79.9 Secondary malignant neoplasm of unspecified site; E87.3 Alkalosis; I48.0 Paroxysmal atrial fibrillation; D68.9 Coagulation defect, unspecified; I48.91 Unspecified atrial fibrillation; R77.8 Other specified abnormalities of plasma proteins; E78.00 Pure hypercholesterolemia, unspecified; I10 Essential (primary) hypertension; J44.9 Chronic obstructive pulmonary disease, unspecified; H54.7 Unspecified visual loss; C61 Malignant neoplasm of prostate; D70.9 Neutropenia, unspecified; R79.1 Abnormal coagulation profile; J43.1 Panlobular emphysema; Z20.822 Contact with and (suspected) exposure to COVID-19; Z95.828 Presence of other vascular implants and grafts; Z95.3 Presence of xenogenic heart valve; Z87.891 Personal history of nicotine dependence; E87.6 Hypokalemia; E88.09 Other disorders of plasma-protein metabolism, not elsewhere classified; E83.51 Hypocalcemia; D64.9 Anemia, unspecified; I95.9 Hypotension, unspecified; E78.5 Hyperlipidemia, unspecified; M19.90 Unspecified osteoarthritis, unspecified site; Z95.2 Presence of prosthetic heart valve; Z79.899 Other long term (current) drug therapy; Z79.52 Long term (current) use of systemic steroids; Z79.01 Long term (current) use of anticoagulants; Z88.8 Allergy status to other drugs, medicaments and biological substances; Z79.82 Long term (current) use of aspirin
CPT/HCPCS: 0240U; 36415; 36430; 36600; 51702; 71045; 71045-26; 71046; 71046-26; 71275; 71275-26; 74177; 74177-26; 80048; 80053; 81001; 82040; 82272; 82306; 82330; 82553; 82803; 82962; 83605; 83690; 83735; 83880; 84145; 84443; 84484; 85007; 85025; 85027; 85379; 85610; 86140; 86850; 86900; 86901; 86922; 87040; 93005; 93010; 94640; 94660; 94668; 94761; 96365; 96367; 96375; 97110-GP; 97116-GP; 97162-GP; 97165-GO; 97530-GP; 99223; 99233; 99239; 99285; 99285-25; A9270-GY; J1447; J1642; J1650; J1940; J1956; J2405; J2543; J3490; J7030; J7050; J7512; J7620-GY; P9016

== ENCOUNTER 2020-12-27 18:03 | Inpatient (IN) | payer MEDICARE, BC ==
[2020-12-27] MEDS ORDERED: Sodium Chloride 0.9% 10 ML Syringe FLUSH PRN (18:22)
[2020-12-27] MEDS ORDERED: Sodium Chloride 0.9% 1,000 ML IV STA (18:25)
[2020-12-27] MEDS ORDERED: Sodium Chloride 0.9% 500 ML IV STA (18:32)
--- NOTE | 2020-12-27 19:23 | EDM.PDOC ---
ED HPI GENERAL MEDICAL PROBLEM - General Chief Complaint: Respiratory Problem Stated Complaint: [facility] Time Seen by Provider: 12/27/20 18:22 Source of Information: Reports: Patient, Family, RN Notes Reviewed History Limitations: Reports: No Limitations - History of Present Illness INITIAL COMMENTS - FREE TEXT/NARRATIVE: Patient is a 75-year-old male presenting to the emergency department via [facility] with complaints of fatigue, shortness of breath, intermittent abdominal pain, weakness, and loss of appetite. Symptoms began on Sunday with weakness and loss of appetite. Today he developed shortness of breath. Oxygen saturation per EMS was found to be 68% on his home with 3 L of oxygen by nasal cannula. He received a breathing treatment enroute. On arrival to ER, oxygen saturation was found to be 85% on 3 L. Patient has a history of lung cancer and received chemotherapy last Sunday. His daughter states that he was admitted to hospital 1 month ago with sepsis. He denies known fever at home and he has had no nausea, vomiting, or diarrhea. Vital signs in triage were significant for temperature elevated 100.0 temporal, pulse 123, blood pressure 111/56, respiratory rate 63, oxygen 85% on 4L by nasal cannula. - Related Data Allergies Allergy/AdvReac Type Severity Reaction Status Date / Time atorvastatin Allergy Other Verified 12/27/20 23:36 rosuvastatin AdvReac Abdominal Verified 12/27/20 23:36 Pain Home Meds: Home Meds Aspirin [Adult Low Dose Aspirin EC] 81 mg PO DAILY 05/21/14 [History] Furosemide [Lasix] 40 mg PO DAILY 05/21/14 [History] Metoprolol Succinate [Toprol XL] 100 mg PO DAILY 05/21/14 [History] Potassium Chloride [Klor-Con M20] 20 meq PO BID 05/21/14 [History] Pravastatin [Pravachol] 80 mg PO QPM 09/08/18 [History] Calcium Carbonate/Vitamin D3 [Calcium 500-Vit D3 200 Tablet] 1 tab PO BIDMEALS 12/02/20 [History] Lidocaine/Prilocaine [Lido-Prilo Vinod Pack] 1 applic TOP ASDIRECTED PRN 12/02/20 [History] Loperamide HCl [Loperamide] 2 tab PO ASDIRECTED PRN 12/02/20 [History] predniSONE [Prednisone] 5 mg PO BIDMEALS 12/02/20 [History] Warfarin Sodium [Jantoven] 5 mg PO ASDIRECTED PRN 12/29/20 [History] Past Medical History HEENT History: Reports: Impaired Vision, Other (See Below) Other HEENT History: Has glasses at home Cardiovascular History: Reports: Afib, High Cholesterol, Hypertension Other Cardiovascular History: aortic and mitral valve replacement 03/2014, and 2018 coumadin therapy Respiratory History: Reports: COPD Other Respiratory History: emphysema Gastrointestinal History: Reports: Diverticulosis Genitourinary History: Reports: BPH Musculoskeletal History: Reports: Arthritis Hematologic History: Reports: Anemia Immunologic History: Reports: Immunosuppression Oncologic (Cancer) History: Reports: Prostate, Other (See Below) Other Oncologic History: Mets noted with CT done in ER. Noted in skeletal, bladder, pelvis - Infectious Disease History Infectious Disease History: Reports: Chicken Pox, Measles - Past Surgical History HEENT Surgical History: Reports: Cataract Surgery, Tonsillectomy Cardiovascular Surgical History: Reports: Valve Replacement, Vascular Surgery, Other (See Below) Other Respiratory Surgeries/Procedures: wears oxygen at HS and during they day as needed GI Surgical History: Reports: Hernia, Abdominal Musculoskeletal Surgical History: Reports: ORIF Social & Family History - Family History Family Medical History: No Pertinent Family History - Tobacco Use Tobacco Use Status *Q: Never Tobacco User Second Hand Smoke Exposure: No - Caffeine Use Caffeine Use: Reports: None - Recreational Drug Use Recreational Drug Use: No - Living Situation & Occupation Living situation: Reports: , with Spouse Occupation: Retired ED ROS GENERAL - Review of Systems Review Of Systems: See Below Constitutional: Reports: Weakness, Fatigue, Decreased Appetite. Denies: Fever HEENT: Reports: No Symptoms Respiratory: Reports: Shortness of Breath, Cough. Denies: Pleuritic Chest Pain Cardiovascular: Reports: Dyspnea on Exertion. Denies: Chest Pain, Lightheadedness, Syncope Endocrine: Reports: No Symptoms GI/Abdominal: Reports: Abdominal Pain (Intermittent generalized), Decreased Appetite. Denies: Diarrhea, Nausea, Vomiting : Reports: No Symptoms Musculoskeletal: Reports: No Symptoms Skin: Reports: No Symptoms Neurological: Reports: No Symptoms Psychiatric: Reports: No Symptoms Hematologic/Lymphatic: Reports: No Symptoms Immunologic: Reports: No Symptoms ED EXAM, GENERAL - Physical Exam Exam: See Below Exam Limited By: No Limitations General Appearance: Alert, Mild Distress Respiratory/Chest: Chest Non-Tender, Respiratory Distress (Moderate), Crackles (Bilateral bases), Accessory Muscle Use. No: Wheezing Cardiovascular: Normal Peripheral Pulses, Regular Rate, Rhythm, No Edema, No Gallop, No JVD, No Murmur, No Rub GI/Abdominal: Normal Bowel Sounds, Soft, Non-Tender, No Organomegaly, No Distention, No Abnormal Bruit, No Mass Neurological: Alert, Oriented, CN II-XII Intact, Normal Cognition, Normal Gait, Normal Reflexes, No Motor/Sensory Deficits Psychiatric: Normal Affect, Normal Mood Skin Exam: Dry, Intact, Normal Color, Increased Warmth #1 Interpretation EKG Date: 12/27/20 Time: 20:10 Rhythm: NSR Rate (Beats/Min): 117 [place]: Normal P-Wave: Present QRS: Normal ST-T: Normal QT: Prolonged Course - Vital Signs Last Recorded V/S: Last Vital Signs Temp 97.8 F 12/29/20 08:00 Pulse 41 L 12/29/20 10:00 Resp 40 H 12/29/20 10:00 BP 55/42 L 12/29/20 10:00 Pulse Ox 61 L 12/29/20 10:00 - Orders/Labs/Meds Labs: Laboratory Tests 12/27/20 12/27/20 12/27/20 Range/Units 18:30 18:56 18:56 WBC 0.34 L* (4.23-9.07) K/mm3 RBC 3.14 L (4.63-6.08) M/mm3 Hgb 8.9 L (13.7-17.5) gm/dl Hct 28.3 L (40.1-51.0) % MCV 90.1 (79.0-92.2) fl MCH 28.3 (25.7-32.2) pg MCHC 31.4 L (32.2-35.5) g/dl RDW Std Deviation 55.8 H (35.1-43.9) fL Plt Count 200 (163-337) K/mm3 MPV 9.7 (9.4-12.3) fl Neutrophils % (Manual) 28 L (40-60) % Band Neutrophils % 0 (0-10) % Lymphocytes % (Manual) 64 H (20-40) % Atypical Lymphs % 0 % Monocytes % (Manual) 8 (2-10) % Eosinophils % (Manual) 0 L (0.8-7.0) % Basophils % (Manual) 0 L (0.2-1.2) Platelet Estimate Adequate Anisocytosis 1+ slight RBC Morph Comment Not Reportable PT 32.3 H D (9.7-12.0) SECONDS INR 3.09 Puncture Site Rt radial ABG pH 7.47 H (7.35-7.45) ABG pCO2 45.3 H (35.0-45.0) mmHg ABG pO2 51.0 L (80.0-100.0) mmHg ABG HCO3 32.8 H (22.0-26.0) meq/L ABG O2 Saturation 82.4 L (96.0-97.0) % ABG Base Excess 8.5 H (-2-2.0) Jose David Test Positive A-a Gradient 149 mmHg O2 Delivery Device Nasal cannula Oxygen Flow Rate 4.0 FiO2 36.00 (21.00-100.00) % Sodium (136-145) mEq/L Potassium (3.5-5.1) mEq/L Chloride (98-107) mEq/L Carbon Dioxide (21-32) mEq/L Anion Gap (5-15) BUN (7-18) mg/dL Creatinine (0.7-1.3) mg/dL Est Cr Clr Drug Dosing mL/min Estimated GFR (MDRD) (>60) mL/min BUN/Creatinine Ratio (14-18) Glucose (83-115) mg/dL Lactic Acid (0.4-2.0) mmol/L Calcium (8.5-10.1) mg/dL Magnesium (1.8-2.4) mg/dl Total Bilirubin (0.2-1.0) mg/dL AST (15-37) U/L ALT (16-63) U/L Alkaline Phosphatase (46-116) U/L Troponin I (0.00-0.056) ng/mL C-Reactive Protein (<1.0) mg/dL NT-Pro-B Natriuret Pep (0-450) pg/mL Total Protein (6.4-8.2) g/dl Albumin (3.4-5.0) g/dl Globulin gm/dL Albumin/Globulin Ratio (1-2) Urine Color (Yellow) Urine Appearance (Clear) Urine pH (5.0-8.0) Ur Specific [place] (1.005-1.030) Urine Protein (Negative) Urine Glucose (UA) (Negative) Urine Ketones (Negative) Urine Occult Blood (Negative) Urine Nitrite (Negative) Urine Bilirubin (Negative) Urine Urobilinogen (0.2-1.0) Ur Leukocyte Esterase (Negative) Urine RBC (0-5) /hpf Urine WBC (0-5) /hpf Ur Squamous Epith Cells (0-5) /hpf Urine Bacteria (FEW) /hpf Urine Mucus (FEW) /hpf SARS-CoV-2 RNA (JACKY) (NEGATIVE) 12/27/20 12/27/20 12/27/20 Range/Units 18:56 18:56 18:56 WBC (4.23-9.07) K/mm3 RBC (4.63-6.08) M/mm3 Hgb (13.7-17.5) gm/dl Hct (40.1-51.0) % MCV (79.0-92.2) fl MCH (25.7-32.2) pg MCHC (32.2-35.5) g/dl RDW Std Deviation (35.1-43.9) fL Plt Count (163-337) K/mm3 MPV (9.4-12.3) fl Neutrophils % (Manual) (40-60) % Band Neutrophils % (0-10) % Lymphocytes % (Manual) (20-40) % Atypical Lymphs % % Monocytes % (Manual) (2-10) % Eosinophils % (Manual) (0.8-7.0) % Basophils % (Manual) (0.2-1.2) Platelet Estimate Anisocytosis RBC Morph Comment PT (9.7-12.0) SECONDS INR Puncture Site ABG pH (7.35-7.45) ABG pCO2 (35.0-45.0) mmHg ABG pO2 (80.0-100.0) mmHg ABG HCO3 (22.0-26.0) meq/L ABG O2 Saturation (96.0-97.0) % ABG Base Excess (-2-2.0) Jose David Test A-a Gradient mmHg O2 Delivery Device Oxygen Flow Rate FiO2 (21.00-100.00) % Sodium 139 (136-145) mEq/L Potassium 3.9 (3.5-5.1) mEq/L Chloride 99 (98-107) mEq/L Carbon Dioxide 33 H (21-32) mEq/L Anion Gap 10.9 (5-15) BUN 34 H (7-18) mg/dL Creatinine 1.1 (0.7-1.3) mg/dL Est Cr Clr Drug Dosing 44.02 mL/min Estimated GFR (MDRD) > 60 (>60) mL/min BUN/Creatinine Ratio 30.9 H (14-18) Glucose 139 H (83-115) mg/dL Lactic Acid 0.9 (0.4-2.0) mmol/L Calcium 6.9 L (8.5-10.1) mg/dL Magnesium 2.1 (1.8-2.4) mg/dl Total Bilirubin 1.8 H (0.2-1.0) mg/dL AST 34 (15-37) U/L ALT 24 (16-63) U/L Alkaline Phosphatase 147 H (46-116) U/L Troponin I (0.00-0.056) ng/mL C-Reactive Protein 21.0 H* (<1.0) mg/dL NT-Pro-B Natriuret Pep 4899 H (0-450) pg/mL Total Protein 6.8 (6.4-8.2) g/dl Albumin 2.5 L (3.4-5.0) g/dl Globulin 4.3 gm/dL Albumin/Globulin Ratio 0.6 L (1-2) Urine Color (Yellow) Urine Appearance (Clear) Urine pH (5.0-8.0) Ur Specific [place] (1.005-1.030) Urine Protein (Negative) Urine Glucose (UA) (Negative) Urine Ketones (Negative) Urine Occult Blood (Negative) Urine Nitrite (Negative) Urine Bilirubin (Negative) Urine Urobilinogen (0.2-1.0) Ur Leukocyte Esterase (Negative) Urine RBC (0-5) /hpf Urine WBC (0-5) /hpf Ur Squamous Epith Cells (0-5) /hpf Urine Bacteria (FEW) /hpf Urine Mucus (FEW) /hpf SARS-CoV-2 RNA (JACKY) (NEGATIVE) 12/27/20 12/27/20 12/27/20 Range/Units 18:56 19:00 19:20 WBC (4.23-9.07) K/mm3 RBC (4.63-6.08) M/mm3 Hgb (13.7-17.5) gm/dl Hct (40.1-51.0) % MCV (79.0-92.2) fl MCH (25.7-32.2) pg MCHC (32.2-35.5) g/dl RDW Std Deviation (35.1-43.9) fL Plt Count (163-337) K/mm3 MPV (9.4-12.3) fl Neutrophils % (Manual) (40-60) % Band Neutrophils % (0-10) % Lymphocytes % (Manual) (20-40) % Atypical Lymphs % % Monocytes % (Manual) (2-10) % Eosinophils % (Manual) (0.8-7.0) % Basophils % (Manual) (0.2-1.2) Platelet Estimate Anisocytosis RBC Morph Comment PT (9.7-12.0) SECONDS INR Puncture Site ABG pH (7.35-7.45) ABG pCO2 (35.0-45.0) mmHg ABG pO2 (80.0-100.0) mmHg ABG HCO3 (22.0-26.0) meq/L ABG O2 Saturation (96.0-97.0) % ABG Base Excess (-2-2.0) Jose David Test A-a Gradient mmHg O2 Delivery Device Oxygen Flow Rate FiO2 (21.00-100.00) % Sodium (136-145) mEq/L Potassium (3.5-5.1) mEq/L Chloride (98-107) mEq/L Carbon Dioxide (21-32) mEq/L Anion Gap (5-15) BUN (7-18) mg/dL Creatinine (0.7-1.3) mg/dL Est Cr Clr Drug Dosing mL/min Estimated GFR (MDRD) (>60) mL/min BUN/Creatinine Ratio (14-18) Glucose (83-115) mg/dL Lactic Acid (0.4-2.0) mmol/L Calcium (8.5-10.1) mg/dL Magnesium (1.8-2.4) mg/dl Total Bilirubin (0.2-1.0) mg/dL AST (15-37) U/L ALT (16-63) U/L Alkaline Phosphatase (46-116) U/L Troponin I 0.059 H* (0.00-0.056) ng/mL C-Reactive Protein (<1.0) mg/dL NT-Pro-B Natriuret Pep (0-450) pg/mL Total Protein (6.4-8.2) g/dl Albumin (3.4-5.0) g/dl Globulin gm/dL Albumin/Globulin Ratio (1-2) Urine Color Yellow (Yellow) Urine Appearance Slt cloudy H (Clear) Urine pH 7.0 (5.0-8.0) Ur Specific [place] 1.015 (1.005-1.030) Urine Protein 1+ H (Negative) Urine Glucose (UA) Negative (Negative) Urine Ketones Negative (Negative) Urine Occult Blood 2+ H (Negative) Urine Nitrite Negative (Negative) Urine Bilirubin Negative (Negative) Urine Urobilinogen 0.2 (0.2-1.0) Ur Leukocyte Esterase 1+ H (Negative) Urine RBC 0-5 (0-5) /hpf Urine WBC 5-10 H (0-5) /hpf Ur Squamous Epith Cells 5-10 H (0-5) /hpf Urine Bacteria Moderate H (FEW) /hpf Urine Mucus Few (FEW) /hpf SARS-CoV-2 RNA (JACKY) Negative (NEGATIVE) Meds: Medications Discontinued Medications Generic Name Dose Route Start Last Admin Trade Name Urielq PRN Reason Stop Dose Admin Acetaminophen 650 mg 12/27/20 21:25 Tylenol PO Q4H PRN Pain (Mild 1-3)/fever Acetaminophen 650 mg 12/28/20 01:29 12/28/20 06:01 Tylenol RECTAL 650 mg Q4H PRN Administration Fever Digoxin 250 mcg 12/28/20 10:00 12/28/20 22:08 Lanoxin IVPUSH 12/28/20 22:01 250 mcg Q6H KWADWO Administration Furosemide 40 mg 12/27/20 21:31 12/27/20 22:07 Lasix IVPUSH 12/27/20 21:32 40 mg NOW ONE Administration Sodium Chloride 1,000 mls @ 100 mls/hr 12/27/20 18:25 12/27/20 21:34 Normal Saline IV 12/28/20 04:24 Not Given NOW STA Sodium Chloride 500 mls @ 999 mls/hr 12/27/20 18:32 12/27/20 18:59 Normal Saline IV 12/27/20 18:55 999 mls/hr NOW STA Administration Ceftriaxone Sodium 1 gm/ 100 mls @ 200 mls/hr 12/27/20 19:35 12/27/20 20:07 Sodium Chloride IV 12/27/20 20:04 200 mls/hr ONETIME ONE Administration Piperacillin Sod/Tazobactam 100 mls @ 200 mls/hr 12/27/20 21:29 12/27/20 22:07 Sod 4.5 gm/ Sodium Chloride IV 12/27/20 21:58 200 mls/hr ONETIME ONE Administration Piperacillin Sod/Tazobactam 100 mls @ 25 mls/hr 12/27/20 21:30 12/29/20 06:07 Sod 4.5 gm/ Sodium Chloride IV 25 mls/hr Q8H KWADWO Administration Levofloxacin/Dextrose 750 mg/ 150 mls @ 100 mls/hr 12/27/20 21:45 12/27/20 22:08 Premix IV 100 mls/hr Q24H KWADWO Administration Vancomycin HCl 1.5 gm/ Sodium 500 mls @ 250 mls/hr 12/27/20 22:00 12/27/20 22:22 Chloride IV 12/27/20 23:59 250 mls/hr ONETIME ONE Administration Vancomycin HCl 0.75 gm/ Sodium 250 mls @ 250 mls/hr 12/28/20 23:00 Chloride IV Q24H KWADWO Lactated Ringer's 500 mls @ 999 mls/hr 12/28/20 02:10 12/28/20 02:16 Ringers, Lactated IV 12/28/20 02:40 999 mls/hr .BOLUS ONE Administration Lactated Ringer's 500 mls @ 999 mls/hr 12/28/20 04:01 12/28/20 04:11 Ringers, Lactated IV 12/28/20 04:31 999 mls/hr .BOLUS ONE Administration Lactated Ringer's 1,000 mls @ 790 mls/hr 12/28/20 04:07 12/28/20 04:20 Ringers, Lactated IV 12/28/20 05:22 790 mls/hr .BOLUS ONE Administration Lactated Ringer's 790 mls @ 790 mls/hr 12/28/20 04:21 12/28/20 05:08 Ringers, Lactated IV 12/28/20 05:06 Not Given .BOLUS ONE Levofloxacin/Dextrose 750 mg/ 150 mls @ 100 mls/hr 12/29/20 22:00 Premix IV Q48H KWADWO Vancomycin HCl 1 gm/ Sodium 250 mls @ 250 mls/hr 12/28/20 23:00 12/28/20 22:16 Chloride IV 250 mls/hr Q24H KWADWO Administration Sodium Chloride 1,000 mls @ 125 mls/hr 12/28/20 10:00 12/29/20 09:25 Normal Saline IV 999 mls/hr ASDIRECTED KWADWO Administration Sodium Chloride 500 mls @ 999 mls/hr 12/29/20 02:26 12/29/20 03:00 Normal Saline IV 12/29/20 02:56 125 mls/hr BOLUS ONE Infusion Piperacillin Sod/Tazobactam 100 mls @ 25 mls/hr 12/29/20 18:00 Sod 4.5 gm/ Sodium Chloride IV Q12H KWADWO Levofloxacin/Dextrose 500 mg/ 100 mls @ 100 mls/hr 12/29/20 22:00 Premix IV Q48H KWADWO Lorazepam 0.5 mg 12/27/20 23:52 12/28/20 00:04 Ativan IVPUSH 0.5 mg Q1H PRN Administration Anxiety Morphine Sulfate 0.5 mg 12/28/20 20:11 12/28/20 20:17 Morphine IVPUSH 12/28/20 20:12 0.5 mg ONETIME ONE Administration Morphine Sulfate 0.5 mg 12/28/20 21:00 12/28/20 21:09 Morphine IVPUSH 12/28/20 21:01 0.5 mg ONETIME ONE Administration Morphine Sulfate 1 mg 12/28/20 22:28 Morphine IVPUSH Q1H PRN Dyspnea Morphine Sulfate 2 mg 12/29/20 09:43 12/29/20 09:48 Morphine IVPUSH 12/29/20 09:44 2 mg ONETIME ONE Administration Morphine Sulfate 2 mg 12/29/20 10:38 Morphine IVPUSH Q1H PRN Dyspnea No Warfarin Dose 0 each 12/27/20 22:30 12/27/20 22:55 Needed Tonight PO 12/27/20 22:31 Not Given ONETIME ONE Ondansetron HCl 4 mg 12/27/20 21:25 Zofran IV Q4H PRN Nausea/Vomiting Oxycodone HCl 5 mg 12/27/20 21:25 Oxycodone PO Q4H PRN Pain (moderate 4-6) Sodium Chloride 10 ml 12/27/20 18:22 12/27/20 18:59 Saline Flush FLUSH 10 ml ASDIRECTED PRN Administration Keep Vein Open Tbo-Filgrastim 300 mcg 12/28/20 09:00 Granix SUBCUT DAILY KWADWO Tbo-Filgrastim 300 mcg 12/28/20 09:00 12/29/20 09:29 Granix SUBCUT 300 mcg DAILY KWADWO Administration Vancomycin HCl 1 dose 12/27/20 21:30 Pharmacy To Dose - Vancomycin .XX ASDIRECTED PRN RX TO DOSE VANCO Warfarin Sodium 1 dose 12/27/20 21:30 Pharmacy To Dose - Warfarin .XX ASDIRECTED PRN RX TO DOSE WARFARIN Warfarin Sodium 2 mg 12/28/20 18:00 12/28/20 18:12 Coumadin PO 12/28/20 18:01 Not Given QPM [facility] Warfarin Sodium 0 each 12/29/20 18:00 Coumadin Sliding Scale PO 12/29/20 18:01 QPM KWADWO - Re-Assessments/Exams Free Text/Narrative Re-Assessment/Exam: Patient is a 75-year-old male with a history of COPD and lung cancer presenting to the emergency department with acute onset of worsening of shortness of breath,, and decreased appetite. On triage, oxygen saturation was found to be 85% on 4 L by nasal cannula. He was febrile 100.0. On exam, he does have coarse crackles in the bilateral bases of his lungs. He is warm to touch. I have order ed septic work-up, ABG, EKG, chest x-ray, urinalysis, and a Covid screen. 12/27/20 20:16 Hematology was significant for WBC low at 0.34, hemoglobin 8.9, CO2 33, total bili 1.8, CRP 21.0, proBNP 4899. Lactic acid was normal. INR elevated at 3.09, however patient is on Coumadin. Based on these results, patient does not meet severe sepsis criteria as there is no organ dysfunction. Chest x-ray does show evidence of a right lower lobe infiltrate. Urinalysis shows 1+ leukocyte esterase, 5-10 WBCs, 5-10 squamous epithelial cells, and moderate bacteria. This could be indicative contamination versus infection. I have sent urine for culture. I have ordered Rocephin 1 g IV. Patient is currently on 9 L of O2 via Oxymask satting in the mid to low 90s. Troponin is minimally elevated 0.059, although patient denies chest pain at any point. This is likely related to his heart failure. Case discussed with hospitalist, Dr. Jimenez. He has excepted the patient for admission. Departure - Departure Time of Disposition: 20:16 Disposition: Admitted As Inpatient 64 Condition: Poor Clinical Impression: Elevated troponin, Hospital-acquired pneumonia Congestive heart failure Qualifiers: Heart failure type: unspecified Heart failure chronicity: acute on chronic Qualified Code(s): I50.9 - Heart failure, unspecified - Discharge Information Sepsis Event Note (ED) - Evaluation Sepsis Screening Result: Possible Severe Sepsis Risk
[2020-12-27] MEDS ORDERED: cefTRIAXone 1 GM in Sodium Chloride 0.9% 100 ML IV ONE (19:35)
[2020-12-27] MEDS ORDERED: Ondansetron 4 MG/2 ML SDV IV PRN (21:25)
[2020-12-27] MEDS ORDERED: Acetaminophen 325 MG Tab PO PRN (21:25)
[2020-12-27] MEDS ORDERED: oxyCODONE 5 MG Tab PO PRN (21:25)
[2020-12-27] MEDS ORDERED: Piperacillin/Tazobactam 4.5 GM in Sodium Chloride 0.9% 100 ML IV ONE (21:29)
[2020-12-27] MEDS ORDERED: Furosemide 40 MG/4 ML VIAL IVPUSH ONE (21:31)
[2020-12-27] MEDS: Piperacillin/Tazobactam 4.5 GM in Sodium Chloride 0.9% 100 ML IV SCH (21:34)
--- NOTE | 2020-12-27 21:40 | PCM.HP.2 ---
H&P History of Present Illness - General Date of Service: 12/28/20 Admit Problem/Dx: Admission Diagnosis/Problem Admission Diagnosis/Problem Pneumonia - History of Present Illness Initial Comments - Free Text/Narative: 75-year-old male with metastatic prostate cancer presented to the emergency department with complaints of fatigue, shortness of breath, abdominal pain, weakness, and loss of appetite. Patient was discharged from our hospital on December 06, 2020 after being admitted with diverticulitis and severe neutropenia. Patient was discharged on ciprofloxacin and Flagyl. According to his he was doing better until he received chemotherapy on December 23. He became increasingly weak over the next few days. On presentation he was feverish with a temperature of 100 F, tachycardic, and tachypneic. He was found to be hypoxemic with SPO2 of 85% on 3 L. Patient was on 3 L when dischar ged, but EMS found him to be at 68% when they arrived at the home. CT scan of the abdomen and pelvis done last hospitalization showed findings compatible with mild diverticulitis. Findings compatible with osseous metastatic disease. Retroperitoneal adenopathy was seen with adenopathy continuing along the left iliac chain. Slightly prominent lymph node within the left inguinal region was seen. These are most likely metastatic. Bladder wall thickening with bladder diverticulum. CT angiogram of the chest was negative for pulmonary embolism, but did show mild mediastinal adenopathy. Several slightly prominent lymph nodes within the upper retroperitoneum at the diaphragmatic margin was seen. Diffuse osteosclerotic metastatic changes seen through the osseous structure. Emphysematous change. These 2 scans are very consistent with metastatic prostate cancer. In the emergency department he was found to be severely neutropenic again with a white count of 0.34 and absolute neutrophil count of 95. Patient is on warfarin for his atrial fibrillation and his INR was 3.09. proBNP was 4899 and his C- reactive protein was 21.0. Fortunately his lactic acid was 0.9. Troponin I was slightly elevated at 0.059. In the emergency department I discussed with him and his his very poor prognosis both in the short-term and long-term. At that time patient requested to be a full code although his was not sure he understood what that meant. - Related Data Allergies/Adverse Reactions: Allergies Allergy/AdvReac Type Severity Reaction Status Date / Time atorvastatin Allergy Other Verified 12/27/20 23:36 rosuvastatin AdvReac Abdominal Verified 12/27/20 23:36 Pain Home Medications: Home Meds Albuterol Sulfate [Albuterol Sulfate HFA] 2 puff IH Q6H PRN 05/21/14 [History] Aspirin [Adult Low Dose Aspirin EC] 81 mg PO DAILY 05/21/14 [History] Budesonide/Formoterol [Symbicort 160-4.5 MCG] 2 puff INH BID 05/21/14 [History] Furosemide [Lasix] 40 mg PO DAILY 05/21/14 [History] Metoprolol Succinate [Toprol XL] 100 mg PO DAILY 05/21/14 [History] Potassium Chloride [Klor-Con M20] 20 meq PO BID 05/21/14 [History] Tiotropium [Spiriva Handihaler] 18 mcg INH DAILY 05/21/14 [History] Fish Oil/DHA/EPA [Fish Oil 1,200 MG] 1,200 mg PO DAILY 01/20/18 [History] Flaxseed Oil [Flaxseed] 1,000 mg PO DAILY 01/20/18 [History] Magnesium 400 mg PO DAILY 01/20/18 [History] Ubidecarenone [Coenzyme Q10] 10 mg PO DAILY 01/20/18 [History] Pravastatin [Pravachol] 80 mg PO DAILY 09/08/18 [History] Bicalutamide [Casodex] 50 mg PO DAILY 12/02/20 [History] Calcium Carbonate/Vitamin D3 [Calcium 500-Vit D3 200 Tablet] 1 tab PO BIDMEALS 12/02/20 [History] Diphenhyd/Lidocaine/Nystatin [Magic Mouthwash] 15 ml PO TID PRN 12/02/20 [History] Hydrocodone/Acetaminophen [Hydrocodone-Acetamin 7.5-325] 1 tab PO Q6HR PRN 06/15 [History] Lidocaine/Prilocaine [Lido-Prilo Vinod Pack] 1 applic TOP ASDIRECTED PRN 12/02/20 [History] Loperamide HCl [Loperamide] 2 tab PO ASDIRECTED PRN 12/02/20 [History] Multivitamin [Multi-Vitamin Daily] 1 tab PO DAILY 12/02/20 [History] Prochlorperazine [Compazine] 10 mg PO QID PRN 12/02/20 [History] Sennosides/Docusate Sodium [Senna Plus 8.6-50 mg Tablet] 1 tab PO BID 12/02/20 [History] Simethicone 80 mg PO Q2H PRN 12/02/20 [History] predniSONE [Prednisone] 5 mg PO BIDMEALS 12/02/20 [History] traMADol [Ultram] 50 - 100 mg PO Q4H PRN 12/02/20 [History] Ciprofloxacin HCl [Cipro] 500 mg PO Q12HR #13 tablet 12/06/20 [Rx] Warfarin [Coumadin] 3 mg PO DAILY #30 tab 12/06/20 [Rx] metroNIDAZOLE [Metronidazole] 500 mg PO Q8HR #19 tablet 12/06/20 [Rx] Past Medical History HEENT History: Reports: Impaired Vision, Other (See Below) Other HEENT History: Has glasses at home Cardiovascular History: Reports: Afib, High Cholesterol, Hypertension Other Cardiovascular History: aortic and mitral valve replacement 03/2014, and 2018 coumadin therapy Respiratory History: Reports: COPD Other Respiratory History: emphysema Gastrointestinal History: Reports: Diverticulosis Genitourinary History: Reports: BPH Musculoskeletal History: Reports: Arthritis Hematologic History: Reports: Anemia Immunologic History: Reports: Immunosuppression Oncologic (Cancer) History: Reports: Prostate, Other (See Below) Other Oncologic History: Mets noted with CT done in ER. Noted in skeletal, bladder, pelvis - Infectious Disease History Infectious Disease History: Reports: Chicken Pox, Measles - Past Surgical History HEENT Surgical History: Reports: Cataract Surgery, Tonsillectomy Cardiovascular Surgical History: Reports: Valve Replacement, Vascular Surgery, Other (See Below) Other Respiratory Surgeries/Procedures: wears oxygen at HS and during they day as needed GI Surgical History: Reports: Hernia, Abdominal Musculoskeletal Surgical History: Reports: ORIF Social & Family History - Family History Family Medical History: No Pertinent Family History - Tobacco Use Tobacco Use Status *Q: Never Tobacco User Second Hand Smoke Exposure: No - Caffeine Use Caffeine Use: Reports: None - Recreational Drug Use Recreational Drug Use: No - Living Situation & Occupation Living situation: Reports: , with Spouse Occupation: Retired H&P Review of Systems - Review of Systems: Review Of Systems: Comprehensive ROS is negative, except as noted in HPI. Exam - Exam Exam: See Below - Vital Signs Vital Signs: Last Vital Signs Temp 100 F 12/27/20 18:04 Pulse 123 H 12/27/20 18:04 Resp 36 H 12/27/20 18:04 BP 111/56 L 12/27/20 18:04 Pulse Ox 90 L 12/27/20 18:40 Weight: 122 lb - Exam Quality Assessment: Supplemental Oxygen General: Alert, Severe Distress HEENT: EOMI, Pupils Reactive, PERRLA. No: Hearing Intact (Hard of hearing), Mucosa Moist & [place] (Dry) Neck: Supple, Trachea Midline, 2 Lungs: Rales (Throughout), Rhonchi (Bibasilar). No: Normal Respiratory Effort (Increased respiratory rate and effort. Use of accessory muscles.) Cardiovascular: Tachycardia GI/Abdominal Exam: Soft, Tender (Left lower quadrant tenderness without guarding or rebound.), Abnormal Bowel Sounds. No: Normal Bowel Sounds (Decreased) Extremities: Normal Inspection, Non-Tender, No Pedal Edema, Slow Capillary Refill. No: Normal Capillary Refill (Slow) Peripheral Pulses: 1+: Posterior Tibial (L), Posterior Tibial (R), Dorsalis Pedis (L), Dorsalis Pedis (R) Skin: Warm, Dry, Intact Neuro Extensive - Mental Status: Alert, Slow Response to Commands Neuro Extensive - Motor, Sensory, Reflexes: CN II-XII Intact Psychiatric: Anxious, Depressed - Patient Data Lab Results Last 24 hrs: Laboratory Results - last 24 hr 12/27/20 12/27/20 12/27/20 Range/Units 18:30 18:56 18:56 WBC 0.34 L* (4.23-9.07) K/mm3 RBC 3.14 L (4.63-6.08) M/mm3 Hgb 8.9 L (13.7-17.5) gm/dl Hct 28.3 L (40.1-51.0) % MCV 90.1 (79.0-92.2) fl MCH 28.3 (25.7-32.2) pg MCHC 31.4 L (32.2-35.5) g/dl RDW Std Deviation 55.8 H (35.1-43.9) fL Plt Count 200 (163-337) K/mm3 MPV 9.7 (9.4-12.3) fl Neutrophils % (Manual) 28 L (40-60) % Band Neutrophils % 0 (0-10) % Lymphocytes % (Manual) 64 H (20-40) % Atypical Lymphs % 0 % Monocytes % (Manual) 8 (2-10) % Eosinophils % (Manual) 0 L (0.8-7.0) % Basophils % (Manual) 0 L (0.2-1.2) Platelet Estimate Adequate Anisocytosis 1+ slight RBC Morph Comment Not Reportable PT 32.3 H D (9.7-12.0) SECONDS INR 3.09 Puncture Site Rt radial ABG pH 7.47 H (7.35-7.45) ABG pCO2 45.3 H (35.0-45.0) mmHg ABG pO2 51.0 L (80.0-100.0) mmHg ABG HCO3 32.8 H (22.0-26.0) meq/L ABG O2 Saturation 82.4 L (96.0-97.0) % ABG Base Excess 8.5 H (-2-2.0) Jose David Test Positive A-a Gradient 149 mmHg O2 Delivery Device Nasal cannula Oxygen Flow Rate 4.0 FiO2 36.00 (21.00-100.00) % Sodium (136-145) mEq/L Potassium (3.5-5.1) mEq/L Chloride (98-107) mEq/L Carbon Dioxide (21-32) mEq/L Anion Gap (5-15) BUN (7-18) mg/dL Creatinine (0.7-1.3) mg/dL Est Cr Clr Drug Dosing mL/min Estimated GFR (MDRD) (>60) mL/min BUN/Creatinine Ratio (14-18) Glucose (83-115) mg/dL Lactic Acid (0.4-2.0) mmol/L Calcium (8.5-10.1) mg/dL Magnesium (1.8-2.4) mg/dl Total Bilirubin (0.2-1.0) mg/dL AST (15-37) U/L ALT (16-63) U/L Alkaline Phosphatase (46-116) U/L Troponin I (0.00-0.056) ng/mL C-Reactive Protein (<1.0) mg/dL NT-Pro-B Natriuret Pep (0-450) pg/mL Total Protein (6.4-8.2) g/dl Albumin (3.4-5.0) g/dl Globulin gm/dL Albumin/Globulin Ratio (1-2) Urine Color (Yellow) Urine Appearance (Clear) Urine pH (5.0-8.0) Ur Specific [place] (1.005-1.030) Urine Protein (Negative) Urine Glucose (UA) (Negative) Urine Ketones (Negative) Urine Occult Blood (Negative) Urine Nitrite (Negative) Urine Bilirubin (Negative) Urine Urobilinogen (0.2-1.0) Ur Leukocyte Esterase (Negative) Urine RBC (0-5) /hpf Urine WBC (0-5) /hpf Ur Squamous Epith Cells (0-5) /hpf Urine Bacteria (FEW) /hpf Urine Mucus (FEW) /hpf SARS-CoV-2 RNA (JACKY) (NEGATIVE) 12/27/20 12/27/20 12/27/20 Range/Units 18:56 18:56 18:56 WBC (4.23-9.07) K/mm3 RBC (4.63-6.08) M/mm3 Hgb (13.7-17.5) gm/dl Hct (40.1-51.0) % MCV (79.0-92.2) fl MCH (25.7-32.2) pg MCHC (32.2-35.5) g/dl RDW Std Deviation (35.1-43.9) fL Plt Count (163-337) K/mm3 MPV (9.4-12.3) fl Neutrophils % (Manual) (40-60) % Band Neutrophils % (0-10) % Lymphocytes % (Manual) (20-40) % Atypical Lymphs % % Monocytes % (Manual) (2-10) % Eosinophils % (Manual) (0.8-7.0) % Basophils % (Manual) (0.2-1.2) Platelet Estimate Anisocytosis RBC Morph Comment PT (9.7-12.0) SECONDS INR Puncture Site ABG pH (7.35-7.45) ABG pCO2 (35.0-45.0) mmHg ABG pO2 (80.0-100.0) mmHg ABG HCO3 (22.0-26.0) meq/L ABG O2 Saturation (96.0-97.0) % ABG Base Excess (-2-2.0) Jose David Test A-a Gradient mmHg O2 Delivery Device Oxygen Flow Rate FiO2 (21.00-100.00) % Sodium 139 (136-145) mEq/L Potassium 3.9 (3.5-5.1) mEq/L Chloride 99 (98-107) mEq/L Carbon Dioxide 33 H (21-32) mEq/L Anion Gap 10.9 (5-15) BUN 34 H (7-18) mg/dL Creatinine 1.1 (0.7-1.3) mg/dL Est Cr Clr Drug Dosing 44.02 mL/min Estimated GFR (MDRD) > 60 (>60) mL/min BUN/Creatinine Ratio 30.9 H (14-18) Glucose 139 H (83-115) mg/dL Lactic Acid 0.9 (0.4-2.0) mmol/L Calcium 6.9 L (8.5-10.1) mg/dL Magnesium 2.1 (1.8-2.4) mg/dl Total Bilirubin 1.8 H (0.2-1.0) mg/dL AST 34 (15-37) U/L ALT 24 (16-63) U/L Alkaline Phosphatase 147 H (46-116) U/L Troponin I (0.00-0.056) ng/mL C-Reactive Protein 21.0 H* (<1.0) mg/dL NT-Pro-B Natriuret Pep 4899 H (0-450) pg/mL Total Protein 6.8 (6.4-8.2) g/dl Albumin 2.5 L (3.4-5.0) g/dl Globulin 4.3 gm/dL Albumin/Globulin Ratio 0.6 L (1-2) Urine Color (Yellow) Urine Appearance (Clear) Urine pH (5.0-8.0) Ur Specific [place] (1.005-1.030) Urine Protein (Negative) Urine Glucose (UA) (Negative) Urine Ketones (Negative) Urine Occult Blood (Negative) Urine Nitrite (Negative) Urine Bilirubin (Negative) Urine Urobilinogen (0.2-1.0) Ur Leukocyte Esterase (Negative) Urine RBC (0-5) /hpf Urine WBC (0-5) /hpf Ur Squamous Epith Cells (0-5) /hpf Urine Bacteria (FEW) /hpf Urine Mucus (FEW) /hpf SARS-CoV-2 RNA (JACKY) (NEGATIVE) 12/27/20 12/27/20 12/27/20 Range/Units 18:56 19:00 19:20 WBC (4.23-9.07) K/mm3 RBC (4.63-6.08) M/mm3 Hgb (13.7-17.5) gm/dl Hct (40.1-51.0) % MCV (79.0-92.2) fl MCH (25.7-32.2) pg MCHC (32.2-35.5) g/dl RDW Std Deviation (35.1-43.9) fL Plt Count (163-337) K/mm3 MPV (9.4-12.3) fl Neutrophils % (Manual) (40-60) % Band Neutrophils % (0-10) % Lymphocytes % (Manual) (20-40) % Atypical Lymphs % % Monocytes % (Manual) (2-10) % Eosinophils % (Manual) (0.8-7.0) % Basophils % (Manual) (0.2-1.2) Platelet Estimate Anisocytosis RBC Morph Comment PT (9.7-12.0) SECONDS INR Puncture Site ABG pH (7.35-7.45) ABG pCO2 (35.0-45.0) mmHg ABG pO2 (80.0-100.0) mmHg ABG HCO3 (22.0-26.0) meq/L ABG O2 Saturation (96.0-97.0) % ABG Base Excess (-2-2.0) Jose David Test A-a Gradient mmHg O2 Delivery Device Oxygen Flow Rate FiO2 (21.00-100.00) % Sodium (136-145) mEq/L Potassium (3.5-5.1) mEq/L Chloride (98-107) mEq/L Carbon Dioxide (21-32) mEq/L Anion Gap (5-15) BUN (7-18) mg/dL Creatinine (0.7-1.3) mg/dL Est Cr Clr Drug Dosing mL/min Estimated GFR (MDRD) (>60) mL/min BUN/Creatinine Ratio (14-18) Glucose (83-115) mg/dL Lactic Acid (0.4-2.0) mmol/L Calcium (8.5-10.1) mg/dL Magnesium (1.8-2.4) mg/dl Total Bilirubin (0.2-1.0) mg/dL AST (15-37) U/L ALT (16-63) U/L Alkaline Phosphatase (46-116) U/L Troponin I 0.059 H* (0.00-0.056) ng/mL C-Reactive Protein (<1.0) mg/dL NT-Pro-B Natriuret Pep (0-450) pg/mL Total Protein (6.4-8.2) g/dl Albumin (3.4-5.0) g/dl Globulin gm/dL Albumin/Globulin Ratio (1-2) Urine Color Yellow (Yellow) Urine Appearance Slt cloudy H (Clear) Urine pH 7.0 (5.0-8.0) Ur Specific [place] 1.015 (1.005-1.030) Urine Protein 1+ H (Negative) Urine Glucose (UA) Negative (Negative) Urine Ketones Negative (Negative) Urine Occult Blood 2+ H (Negative) Urine Nitrite Negative (Negative) Urine Bilirubin Negative (Negative) Urine Urobilinogen 0.2 (0.2-1.0) Ur Leukocyte Esterase 1+ H (Negative) Urine RBC 0-5 (0-5) /hpf Urine WBC 5-10 H (0-5) /hpf Ur Squamous Epith Cells 5-10 H (0-5) /hpf Urine Bacteria Moderate H (FEW) /hpf Urine Mucus Few (FEW) /hpf SARS-CoV-2 RNA (JACKY) Negative (NEGATIVE) Result Diagrams: 12/28/20 04:19 12/28/20 04:19 Imaging Impressions Last 24 hrs: Chest x-ray showed bilateral lower lobe infiltrates consistent with pneumonia with likely some atelectasis. #1 Interpretation EKG Date: 12/27/20 Rhythm: A-Fib Rate (Beats/Min): 117 [place]: Normal P-Wave: Absent QRS: Normal ST-T: Normal QT: Prolonged Sepsis Event Note - Evaluation Sepsis Screening Result: Possible Severe Sepsis Risk - Focused Exam Vital Signs: Vital Signs Temp Pulse Resp BP Pulse Ox Pulse Ox 12/27/20 18:40 90 L 12/27/20 18:04 100 F 123 H 36 H 111/56 L 85 L - Problem List (1) Neutropenic fever SNOMED Code(s): 408627814 ICD Code: D70.9 - NEUTROPENIA, UNSPECIFIED; R50.81 - FEVER PRESENTING WITH CONDITIONS CLASSIFIED ELSEWHERE Status: Acute Current Visit: Yes (2) Hospital-acquired pneumonia SNOMED Code(s): 331791519 ICD Code: J18.9 - PNEUMONIA, UNSPECIFIED ORGANISM; Y95 - NOSOCOMIAL CONDITION Status: Acute Current Visit: Yes (3) Diverticulitis SNOMED Code(s): 361845115 ICD Code: K57.92 - DVTRCLI OF INTEST, PART UNSP, W/O PERF OR ABSCESS W/O BLEED Status: Acute Current Visit: Yes (4) Congestive heart failure SNOMED Code(s): 68698272 ICD Code: I50.9 - HEART FAILURE, UNSPECIFIED Status: Acute Current Visit: No Qualifiers: Heart failure type: unspecified Heart failure chronicity: acute on chronic Qualified Code(s): I50.9 - Heart failure, unspecified (5) Elevated troponin SNOMED Code(s): 918964312, 374800406, 192675396 ICD Code: R77.8 - OTHER SPECIFIED ABNORMALITIES OF PLASMA PROTEINS Status: Acute Priority: High Current Visit: No (6) Generalized weakness SNOMED Code(s): 57103802 ICD Code: R53.1 - WEAKNESS Status: Acute Priority: High Current Visit: No (7) Severe neutropenia SNOMED Code(s): 417083237 ICD Code: D70.9 - NEUTROPENIA, UNSPECIFIED Status: Acute Priority: High Current Visit: No (8) Supratherapeutic INR SNOMED Code(s): 514471015 ICD Code: R79.1 - ABNORMAL COAGULATION PROFILE Status: Acute Current V isit: No (9) Atrial fibrillation SNOMED Code(s): 29281590 ICD Code: I48.91 - UNSPECIFIED ATRIAL FIBRILLATION Status: Chronic Priority: Medium Current Visit: No Qualifiers: Atrial fibrillation type: paroxysmal Qualified Code(s): I48.0 - Paroxysmal atrial fibrillation (10) Prostate cancer metastatic to bone SNOMED Code(s): 256315445 ICD Code: C61 - MALIGNANT NEOPLASM OF PROSTATE; C79.51 - SECONDARY MALIGNANT NEOPLASM OF BONE Status: Acute Current Visit: Yes Problem List Initiated/Reviewed/Updated: Yes Orders Last 24hrs: Active Orders 24 hr Category Date Time Status Patient Status [ADT] Routine ADT 12/27/20 20:19 Active Cardiac Monitoring [RC] CONTINUOUS Care 12/27/20 18:23 Active EKG Documentation Completion [RC] STAT Care 12/27/20 19:30 Active Oxygen Therapy [RC] PRN Care 12/27/20 21:26 Active RT Chest Physiotherapy [RC] ASDIRECTED Care 12/27/20 21:37 Active RT Incentive Spirometry [RC] ASDIRECTED Care 12/27/20 21:37 Active Up With Assistance [RC] ASDIRECTED Care 12/27/20 21:25 Active VTE/DVT Education [RC] PER UNIT ROUTINE Care 12/27/20 21:26 Active Vital Signs [RC] ASDIRECTED Care 12/27/20 21:25 Active Consult to Senior Graduate Advisor [CONS] Routine Cons 12/27/20 21:25 Active Regular Diet [DIET] Diet 12/28/20 Breakfast Active Chest 1V Frontal [CR] Stat Exams 12/27/20 18:22 Taken CULTURE BLOOD [BC] Stat Lab 12/27/20 18:56 Received CULTURE BLOOD [BC] Stat Lab 12/27/20 19:09 Received CULTURE SPUTUM + SMEAR [RM] Routine Lab 12/27/20 21:37 Ordered Acetaminophen [TylenoL] Med 12/27/20 21:25 Active 650 mg PO Q4H PRN Levofloxacin/Dextrose 5%-Water [Levaquin in D5W 750 MG/ Med 12/27/20 21:45 Active 150 ML] 750 mg Premix Bag 1 bag IV Q24H Ondansetron [Zofran] Med 12/27/20 21:25 Active 4 mg IV Q4H PRN Pharmacy to Dose - Vancomycin Med 12/27/20 21:30 Ordered 1 dose .XX ASDIRECTED Pharmacy to Dose - Warfarin Med 12/27/20 21:30 Ordered 1 dose .XX ASDIRECTED Piperacillin/Tazobactam [Piperacil-Tazobact] 4.5 gm Med 12/27/20 21:29 Active Sodium Chloride 0.9% [Normal Saline] 100 ml IV ONETIME Piperacillin/Tazobactam [Piperacil-Tazobact] 4.5 gm Med 12/27/20 21:30 Active Sodium Chloride 0.9% [Normal Saline] 100 ml IV Q8H Sodium Chloride 0.9% [Saline Flush] Med 12/27/20 18:22 Active 10 ml FLUSH ASDIRECTED PRN Tbo-Filgrastim [Granix] Med 12/28/20 09:00 Active 300 mcg SUBCUT DAILY oxyCODONE Med 12/27/20 21:25 Active 5 mg PO Q4H PRN Blood Culture x2 Reflex Set [OM.PC] Stat Oth 12/27/20 18:22 Ordered Pulse Oximetry Continuous Monitoring [OM.PC] Routine Oth 12/27/20 18:22 Active Saline Lock Insert [OM.PC] Stat Oth 12/27/20 18:22 Ordered Resuscitation Status Routine Resus Stat 12/27/20 21:25 Ordered Medication Orders Acetaminophen (Tylenol) 650 mg PO Q4H PRN PRN Reason: Pain (Mild 1-3)/fever Piperacillin Sod/Tazobactam (Sod 4.5 gm/ Sodium Chloride) 100 mls @ 200 mls/hr IV ONETIME ONE Stop: 12/27/20 21:58 Piperacillin Sod/Tazobactam (Sod 4.5 gm/ Sodium Chloride) 100 mls @ 25 mls/hr IV Q8H [facility] Last Admin: 12/27/20 21:34 Dose: Not Given Documented by: SARAH Levofloxacin/Dextrose 750 mg/ (Premix) 150 mls @ 100 mls/hr IV Q24H [facility] Ondansetron HCl (Zofran) 4 mg IV Q4H PRN PRN Reason: Nausea/Vomiting Oxycodone HCl (Oxycodone) 5 mg PO Q4H PRN PRN Reason: Pain (moderate 4-6) Sodium Chloride (Saline Flush) 10 ml FLUSH ASDIRECTED PRN PRN Reason: Keep Vein Open Last Admin: 12/27/20 18:59 Dose: 10 ml Documented by: CECI Kellyo-Filgrastim (Granix) 300 mcg SUBCUT DAILY [facility] Vancomycin HCl (Pharmacy To Dose - Vancomycin) 1 dose .XX ASDIRECTED [facility] Warfarin Sodium (Pharmacy To Dose - Warfarin) 1 dose .XX ASDIRECTED [facility] Assessment/Plan Comment:: Assessment 75-year-old male with history of metastatic prostate cancer recently treated for diverticulitis and neutropenia presents to the emergency department and is admitted to the ICU secondary to severe sepsis due to pneumonia. History of atrial fibrillation, CHF, COPD, anemia, hypertension, hyperlipidemia, biologic aortic and mitral valve replacement in 2013, anticoagulated with warfarin for A. fib Severe sepsis Respiratory failure Pneumonia Recent diverticulitis with persistent left lower quadrant tenderness COPD Severe neutropenia * 9 L of O2 via oxygen mask in the ER * Received Rocephin 2 g * WBC 0.34 with ANC of 95 * CRP 21 * Lactic acid 0.9 * Severe tachypnea * ABG with mixed metabolic and respiratory alkalosis and hypoxemia on 4 L via n matt cannula Exacerbation of congestive heart failure Atrial fibrillation with rapid ventricular response * proBNP 4900 * Heart rate Ranging from low 100s to 120s. Likely worsened due to sepsis. * Blood pressure is borderline low, therefore treating heart rate with either beta-rebeka or calcium channel rebeka would worsen his blood pressure and possibly throw him into shock * His states he did take his metoprolol this morning * Troponin slightly elevated at 0.059 likely secondary to strain Plan * Admit patient to the ICU * Reverse isolation secondary to neutropenia * Place him on BiPAP with 14/7 settings at 50% FiO2. Adjust as necessary * Broaden antibiotic coverage to include healthcare associated pneumonia: Vancomycin, Zosyn, Levaquin. This will also cover any diverticulitis if that is a contributing factor. * Warfarin, pharmacy to dose * Strict I's and O's and daily weights * [place] for critically ill needing every hour to 2-hour urine output * Lasix 40 mg IV x1 * Follow fluid status closely and if necessary we will then bolus IV fluid * ABG 30 minutes after BiPAP * VTE prophylaxis with warfarin * I had a long discussion with him and his regards to CODE STATUS. Patient currently wants to be full code. - Mortality Measure Prognosis:: Poor
[2020-12-27] MEDS ORDERED: Levofloxacin/Dextrose 5%-Water 750 MG in Premix Bag 1 BAG IV SCH (21:45)
[2020-12-27] MEDS ORDERED: Vancomycin 1.5 GM in Sodium Chloride 0.9% 500 ML IV ONE (22:00)
[2020-12-27] MEDS ORDERED: [UNRECOGNIZED DRUG - REMARK] PO ONE (22:30)
[2020-12-27] MEDS ORDERED: LORazepam 2 MG/ML SDV IVPUSH PRN (23:52)
[2020-12-28] MEDS: Acetaminophen 650 MG Supp RECTAL PRN ×2 (01:37→06:01)
[2020-12-28] MEDS ORDERED: Lactated Ringers 500 ML IV ONE ×2 (02:10→04:01)
[2020-12-28] MEDS ORDERED: Lactated Ringers 1,000 ML IV ONE (04:07)
[2020-12-28] MEDS ORDERED: LACTATED RINGERS IV ONE (04:21)
[2020-12-28] MEDS: Piperacillin/Tazobactam 4.5 GM in Sodium Chloride 0.9% 100 ML IV SCH ×3 (04:31→21:09)
--- NOTE | 2020-12-28 08:17 | PCM.PN ---
- General Info Date of Service: 12/28/20 Admission Dx/Problem (Free Text): Admission Diagnosis/Problem Admission Diagnosis/Problem Pneumonia - Patient Data Vitals - Most Recent: Last Vital Signs Temp 99.9 F 12/28/20 06:20 Pulse 132 H 12/28/20 06:01 Resp 45 H 12/28/20 06:01 BP 87/61 L 12/28/20 06:00 Pulse Ox 95 12/28/20 06:01 Weight - Most Recent: 131 lb 8 oz I&O - Last 24 Hours: Intake & Output 12/27/20 12/28/20 12/28/20 22:59 06:59 14:59 Intake Total 1250 Output Total 900 Balance 350 Lab Results Last 24 Hours: Laboratory Results - last 24 hr 12/27/20 12/27/20 12/27/20 Range/Units 18:30 18:56 18:56 WBC 0.34 L* (4.23-9.07) K/mm3 RBC 3.14 L (4.63-6.08) M/mm3 Hgb 8.9 L (13.7-17.5) gm/dl Hct 28.3 L (40.1-51.0) % MCV 90.1 (79.0-92.2) fl MCH 28.3 (25.7-32.2) pg MCHC 31.4 L (32.2-35.5) g/dl RDW Std Deviation 55.8 H (35.1-43.9) fL Plt Count 200 (163-337) K/mm3 MPV 9.7 (9.4-12.3) fl Neut % (Auto) (34.0-67.9) % Lymph % (Auto) (21.8-53.1) % Glenn % (Auto) (5.3-12.2) % Eos % (Auto) (0.8-7.0) Baso % (Auto) (0.1-1.2) % Neut # (Auto) (1.78-5.38) K/mm3 Lymph # (Auto) (1.32-3.57) K/mm3 Glenn # (Auto) (0.30-0.82) K/mm3 Eos # (Auto) (0.04-0.54) K/mm3 Baso # (Auto) (0.01-0.08) K/mm3 Neutrophils % (Manual) 28 L (40-60) % Band Neutrophils % 0 (0-10) % Lymphocytes % (Manual) 64 H (20-40) % Atypical Lymphs % 0 % Monocytes % (Manual) 8 (2-10) % Eosinophils % (Manual) 0 L (0.8-7.0) % Basophils % (Manual) 0 L (0.2-1.2) Manual Slide Review Platelet Estimate Adequate Anisocytosis 1+ slight RBC Morph Comment Not Reportable PT 32.3 H D (9.7-12.0) SECONDS INR 3.09 APTT (21.7-31.4) SECONDS Puncture Site Rt radial ABG pH 7.47 H (7.35-7.45) ABG pCO2 45.3 H (35.0-45.0) mmHg ABG pO2 51.0 L (80.0-100.0) mmHg ABG HCO3 32.8 H (22.0-26.0) meq/L ABG O2 Saturation 82.4 L (96.0-97.0) % ABG Base Excess 8.5 H (-2-2.0) Jose David Test Positive A-a Gradient 149 mmHg O2 Delivery Device Nasal cannula Oxygen Flow Rate 4.0 FiO2 36.00 (21.00-100.00) % Blood Gas Comments Sodium (136-145) mEq/L Potassium (3.5-5.1) mEq/L Chloride (98-107) mEq/L Carbon Dioxide (21-32) mEq/L Anion Gap (5-15) BUN (7-18) mg/dL Creatinine (0.7-1.3) mg/dL Est Cr Clr Drug Dosing mL/min Estimated GFR (MDRD) (>60) mL/min BUN/Creatinine Ratio (14-18) Glucose (83-115) mg/dL Lactic Acid (0.4-2.0) mmol/L Calcium (8.5-10.1) mg/dL Magnesium (1.8-2.4) mg/dl Total Bilirubin (0.2-1.0) mg/dL AST (15-37) U/L ALT (16-63) U/L Alkaline Phosphatase (46-116) U/L Troponin I (0.00-0.056) ng/mL C-Reactive Protein (<1.0) mg/dL NT-Pro-B Natriuret Pep (0-450) pg/mL Total Protein (6.4-8.2) g/dl Albumin (3.4-5.0) g/dl Globulin gm/dL Albumin/Globulin Ratio (1-2) Urine Color (Yellow) Urine Appearance (Clear) Urine pH (5.0-8.0) Ur Specific [place] (1.005-1.030) Urine Protein (Negative) Urine Glucose (UA) (Negative) Urine Ketones (Negative) Urine Occult Blood (Negative) Urine Nitrite (Negative) Urine Bilirubin (Negative) Urine Urobilinogen (0.2-1.0) Ur Leukocyte Esterase (Negative) Urine RBC (0-5) /hpf Urine WBC (0-5) /hpf Ur Squamous Epith Cells (0-5) /hpf Urine Bacteria (FEW) /hpf Urine Mucus (FEW) /hpf SARS-CoV-2 RNA (JACKY) (NEGATIVE) 12/27/20 12/27/20 12/27/20 Range/Units 18:56 18:56 18:56 WBC (4.23-9.07) K/mm3 RBC (4.63-6.08) M/mm3 Hgb (13.7-17.5) gm/dl Hct (40.1-51.0) % MCV (79.0-92.2) fl MCH (25.7-32.2) pg MCHC (32.2-35.5) g/dl RDW Std Deviation (35.1-43.9) fL Plt Count (163-337) K/mm3 MPV (9.4-12.3) fl Neut % (Auto) (34.0-67.9) % Lymph % (Auto) (21.8-53.1) % Glenn % (Auto) (5.3-12.2) % Eos % (Auto) (0.8-7.0) Baso % (Auto) (0.1-1.2) % Neut # (Auto) (1.78-5.38) K/mm3 Lymph # (Auto) (1.32-3.57) K/mm3 Glenn # (Auto) (0.30-0.82) K/mm3 Eos # (Auto) (0.04-0.54) K/mm3 Baso # (Auto) (0.01-0.08) K/mm3 Neutrophils % (Manual) (40-60) % Band Neutrophils % (0-10) % Lymphocytes % (Manual) (20-40) % Atypical Lymphs % % Monocytes % (Manual) (2-10) % Eosinophils % (Manual) (0.8-7.0) % Basophils % (Manual) (0.2-1.2) Manual Slide Review Platelet Estimate Anisocytosis RBC Morph Comment PT (9.7-12.0) SECONDS INR APTT (21.7-31.4) SECONDS Puncture Site ABG pH (7.35-7.45) ABG pCO2 (35.0-45.0) mmHg ABG pO2 (80.0-100.0) mmHg ABG HCO3 (22.0-26.0) meq/L ABG O2 Saturation (96.0-97.0) % ABG Base Excess (-2-2.0) Jose David Test A-a Gradient mmHg O2 Delivery Device Oxygen Flow Rate FiO2 (21.00-100.00) % Blood Gas Comments Sodium 139 (136-145) mEq/L Potassium 3.9 (3.5-5.1) mEq/L Chloride 99 (98-107) mEq/L Carbon Dioxide 33 H (21-32) mEq/L Anion Gap 10.9 (5-15) BUN 34 H (7-18) mg/dL Creatinine 1.1 (0.7-1.3) mg/dL Est Cr Clr Drug Dosing 44.02 mL/min Estimated GFR (MDRD) > 60 (>60) mL/min BUN/Creatinine Ratio 30.9 H (14-18) Glucose 139 H (83-115) mg/dL Lactic Acid 0.9 (0.4-2.0) mmol/L Calcium 6.9 L (8.5-10.1) mg/dL Magnesium 2.1 (1.8-2.4) mg/dl Total Bilirubin 1.8 H (0.2-1.0) mg/dL AST 34 (15-37) U/L ALT 24 (16-63) U/L Alkaline Phosphatase 147 H (46-116) U/L Troponin I (0.00-0.056) ng/mL C-Reactive Protein 21.0 H* (<1.0) mg/dL NT-Pro-B Natriuret Pep 4899 H (0-450) pg/mL Total Protein 6.8 (6.4-8.2) g/dl Albumin 2.5 L (3.4-5.0) g/dl Globulin 4.3 gm/dL Albumin/Globulin Ratio 0.6 L (1-2) Urine Color (Yellow) Urine Appearance (Clear) Urine pH (5.0-8.0) Ur Specific [place] (1.005-1.030) Urine Protein (Negative) Urine Glucose (UA) (Negative) Urine Ketones (Negative) Urine Occult Blood (Negative) Urine Nitrite (Negative) Urine Bilirubin (Negative) Urine Urobilinogen (0.2-1.0) Ur Leukocyte Esterase (Negative) Urine RBC (0-5) /hpf Urine WBC (0-5) /hpf Ur Squamous Epith Cells (0-5) /hpf Urine Bacteria (FEW) /hpf Urine Mucus (FEW) /hpf SARS-CoV-2 RNA (JACKY) (NEGATIVE) 12/27/20 12/27/20 12/27/20 Range/Units 18:56 19:00 19:20 WBC (4.23-9.07) K/mm3 RBC (4.63-6.08) M/mm3 Hgb (13.7-17.5) gm/dl Hct (40.1-51.0) % MCV (79.0-92.2) fl MCH (25.7-32.2) pg MCHC (32.2-35.5) g/dl RDW Std Deviation (35.1-43.9) fL Plt Count (163-337) K/mm3 MPV (9.4-12.3) fl Neut % (Auto) (34.0-67.9) % Lymph % (Auto) (21.8-53.1) % Glenn % (Auto) (5.3-12.2) % Eos % (Auto) (0.8-7.0) Baso % (Auto) (0.1-1.2) % Neut # (Auto) (1.78-5.38) K/mm3 Lymph # (Auto) (1.32-3.57) K/mm3 Glenn # (Auto) (0.30-0.82) K/mm3 Eos # (Auto) (0.04-0.54) K/mm3 Baso # (Auto) (0.01-0.08) K/mm3 Neutrophils % (Manual) (40-60) % Band Neutrophils % (0-10) % Lymphocytes % (Manual) (20-40) % Atypical Lymphs % % Monocytes % (Manual) (2-10) % Eosinophils % (Manual) (0.8-7.0) % Basophils % (Manual) (0.2-1.2) Manual Slide Review Platelet Estimate Anisocytosis RBC Morph Comment PT (9.7-12.0) SECONDS INR APTT (21.7-31.4) SECONDS Puncture Site ABG pH (7.35-7.45) ABG pCO2 (35.0-45.0) mmHg ABG pO2 (80.0-100.0) mmHg ABG HCO3 (22.0-26.0) meq/L ABG O2 Saturation (96.0-97.0) % ABG Base Excess (-2-2.0) Jose David Test A-a Gradient mmHg O2 Delivery Device Oxygen Flow Rate FiO2 (21.00-100.00) % Blood Gas Comments Sodium (136-145) mEq/L Potassium (3.5-5.1) mEq/L Chloride (98-107) mEq/L Carbon Dioxide (21-32) mEq/L Anion Gap (5-15) BUN (7-18) mg/dL Creatinine (0.7-1.3) mg/dL Est Cr Clr Drug Dosing mL/min Estimated GFR (MDRD) (>60) mL/min BUN/Creatinine Ratio (14-18) Glucose (83-115) mg/dL Lactic Acid (0.4-2.0) mmol/L Calcium (8.5-10.1) mg/dL Magnesium (1.8-2.4) mg/dl Total Bilirubin (0.2-1.0) mg/dL AST (15-37) U/L ALT (16-63) U/L Alkaline Phosphatase (46-116) U/L Troponin I 0.059 H* (0.00-0.056) ng/mL C-Reactive Protein (<1.0) mg/dL NT-Pro-B Natriuret Pep (0-450) pg/mL Total Protein (6.4-8.2) g/dl Albumin (3.4-5.0) g/dl Globulin gm/dL Albumin/Globulin Ratio (1-2) Urine Color Yellow (Yellow) Urine Appearance Slt cloudy H (Clear) Urine pH 7.0 (5.0-8.0) Ur Specific [place] 1.015 (1.005-1.030) Urine Protein 1+ H (Negative) Urine Glucose (UA) Negative (Negative) Urine Ketones Negative (Negative) Urine Occult Blood 2+ H (Negative) Urine Nitrite Negative (Negative) Urine Bilirubin Negative (Negative) Urine Urobilinogen 0.2 (0.2-1.0) Ur Leukocyte Esterase 1+ H (Negative) Urine RBC 0-5 (0-5) /hpf Urine WBC 5-10 H (0-5) /hpf Ur Squamous Epith Cells 5-10 H (0-5) /hpf Urine Bacteria Moderate H (FEW) /hpf Urine Mucus Few (FEW) /hpf SARS-CoV-2 RNA (JACKY) Negative (NEGATIVE) 12/27/20 12/28/20 12/28/20 Range/Units 22:28 04:19 04:19 WBC 0.32 L* (4.23-9.07) K/mm3 RBC 2.80 L (4.63-6.08) M/mm3 Hgb 8.0 L (13.7-17.5) gm/dl Hct 26.0 L (40.1-51.0) % MCV 92.9 H (79.0-92.2) fl MCH 28.6 (25.7-32.2) pg MCHC 30.8 L (32.2-35.5) g/dl RDW Std Deviation 57.6 H (35.1-43.9) fL Plt Count 215 (163-337) K/mm3 MPV 9.8 (9.4-12.3) fl Neut % (Auto) 43.7 (34.0-67.9) % Lymph % (Auto) 28.1 (21.8-53.1) % Glenn % (Auto) 18.8 H (5.3-12.2) % Eos % (Auto) 0 L (0.8-7.0) Baso % (Auto) 0.0 L (0.1-1.2) % Neut # (Auto) 0.14 L (1.78-5.38) K/mm3 Lymph # (Auto) 0.09 L (1.32-3.57) K/mm3 Glenn # (Auto) 0.06 L (0.30-0.82) K/mm3 Eos # (Auto) 0.00 L (0.04-0.54) K/mm3 Baso # (Auto) 0.00 L (0.01-0.08) K/mm3 Neutrophils % (Manual) (40-60) % Band Neutrophils % (0-10) % Lymphocytes % (Manual) (20-40) % Atypical Lymphs % % Monocytes % (Manual) (2-10) % Eosinophils % (Manual) (0.8-7.0) % Basophils % (Manual) (0.2-1.2) Manual Slide Review Abnormal smear Platelet Estimate Anisocytosis RBC Morph Comment PT (9.7-12.0) SECONDS INR APTT (21.7-31.4) SECONDS Puncture Site Lt radial ABG pH 7.40 (7.35-7.45) ABG pCO2 49.6 H (35.0-45.0) mmHg ABG pO2 83.0 (80.0-100.0) mmHg ABG HCO3 30.2 H (22.0-26.0) meq/L ABG O2 Saturation 96.6 (96.0-97.0) % ABG Base Excess 5.2 H (-2-2.0) Jose David Test Positive A-a Gradient 211 mmHg O2 Delivery Device Bipap Oxygen Flow Rate FiO2 50.00 (21.00-100.00) % Blood Gas Comments 7 Sodium (136-145) mEq/L Potassium (3.5-5.1) mEq/L Chloride (98-107) mEq/L Carbon Dioxide (21-32) mEq/L Anion Gap (5-15) BUN (7-18) mg/dL Creatinine (0.7-1.3) mg/dL Est Cr Clr Drug Dosing mL/min Estimated GFR (MDRD) (>60) mL/min BUN/Creatinine Ratio (14-18) Glucose (83-115) mg/dL Lactic Acid 1.0 (0.4-2.0) mmol/L Calcium (8.5-10.1) mg/dL Magnesium (1.8-2.4) mg/dl Total Bilirubin (0.2-1.0) mg/dL AST (15-37) U/L ALT (16-63) U/L Alkaline Phosphatase (46-116) U/L Troponin I (0.00-0.056) ng/mL C-Reactive Protein (<1.0) mg/dL NT-Pro-B Natriuret Pep (0-450) pg/mL Total Protein (6.4-8.2) g/dl Albumin (3.4-5.0) g/dl Globulin gm/dL Albumin/Globulin Ratio (1-2) Urine Color (Yellow) Urine Appearance (Clear) Urine pH (5.0-8.0) Ur Specific [place] (1.005-1.030) Urine Protein (Negative) Urine Glucose (UA) (Negative) Urine Ketones (Negative) Urine Occult Blood (Negative) Urine Nitrite (Negative) Urine Bilirubin (Negative) Urine Urobilinogen (0.2-1.0) Ur Leukocyte Esterase (Negative) Urine RBC (0-5) /hpf Urine WBC (0-5) /hpf Ur Squamous Epith Cells (0-5) /hpf Urine Bacteria (FEW) /hpf Urine Mucus (FEW) /hpf SARS-CoV-2 RNA (JACKY) (NEGATIVE) 12/28/20 12/28/20 Range/Units 04:19 04:19 WBC (4.23-9.07) K/mm3 RBC (4.63-6.08) M/mm3 Hgb (13.7-17.5) gm/dl Hct (40.1-51.0) % MCV (79.0-92.2) fl MCH (25.7-32.2) pg MCHC (32.2-35.5) g/dl RDW Std Deviation (35.1-43.9) fL Plt Count (163-337) K/mm3 MPV (9.4-12.3) fl Neut % (Auto) (34.0-67.9) % Lymph % (Auto) (21.8-53.1) % Glenn % (Auto) (5.3-12.2) % Eos % (Auto) (0.8-7.0) Baso % (Auto) (0.1-1.2) % Neut # (Auto) (1.78-5.38) K/mm3 Lymph # (Auto) (1.32-3.57) K/mm3 Glenn # (Auto) (0.30-0.82) K/mm3 Eos # (Auto) (0.04-0.54) K/mm3 Baso # (Auto) (0.01-0.08) K/mm3 Neutrophils % (Manual) (40-60) % Band Neutrophils % (0-10) % Lymphocytes % (Manual) (20-40) % Atypical Lymphs % % Monocytes % (Manual) (2-10) % Eosinophils % (Manual) (0.8-7.0) % Basophils % (Manual) (0.2-1.2) Manual Slide Review Platelet Estimate Anisocytosis RBC Morph Comment PT 27.5 H (9.7-12.0) SECONDS INR 2.62 APTT 44.5 H (21.7-31.4) SECONDS Puncture Site ABG pH (7.35-7.45) ABG pCO2 (35.0-45.0) mmHg ABG pO2 (80.0-100.0) mmHg ABG HCO3 (22.0-26.0) meq/L ABG O2 Saturation (96.0-97.0) % ABG Base Excess (-2-2.0) Jose David Test A-a Gradient mmHg O2 Delivery Device Oxygen Flow Rate FiO2 (21.00-100.00) % Blood Gas Comments Sodium 140 (136-145) mEq/L Potassium 4.2 (3.5-5.1) mEq/L Chloride 98 (98-107) mEq/L Carbon Dioxide 33 H (21-32) mEq/L Anion Gap 13.2 (5-15) BUN 34 H (7-18) mg/dL Creatinine 1.4 H (0.7-1.3) mg/dL Est Cr Clr Drug Dosing 37.28 mL/min Estimated GFR (MDRD) 49 (>60) mL/min BUN/Creatinine Ratio 24.3 H (14-18) Glucose 139 H (83-115) mg/dL Lactic Acid (0.4-2.0) mmol/L Calcium 6.3 L (8.5-10.1) mg/dL Magnesium (1.8-2.4) mg/dl Total Bilirubin 1.3 H (0.2-1.0) mg/dL AST 33 (15-37) U/L ALT 17 (16-63) U/L Alkaline Phosphatase 106 (46-116) U/L Troponin I 0.121 H* (0.00-0.056) ng/mL C-Reactive Protein 24.2 H* (<1.0) mg/dL NT-Pro-B Natriuret Pep (0-450) pg/mL Total Protein 5.9 L (6.4-8.2) g/dl Albumin 2.0 L (3.4-5.0) g/dl Globulin 3.9 gm/dL Albumin/Globulin Ratio 0.5 L (1-2) Urine Color (Yellow) Urine Appearance (Clear) Urine pH (5.0-8.0) Ur Specific [place] (1.005-1.030) Urine Protein (Negative) Urine Glucose (UA) (Negative) Urine Ketones (Negative) Urine Occult Blood (Negative) Urine Nitrite (Negative) Urine Bilirubin (Negative) Urine Urobilinogen (0.2-1.0) Ur Leukocyte Esterase (Negative) Urine RBC (0-5) /hpf Urine WBC (0-5) /hpf Ur Squamous Epith Cells (0-5) /hpf Urine Bacteria (FEW) /hpf Urine Mucus (FEW) /hpf SARS-CoV-2 RNA (JACKY) (NEGATIVE) Med Orders - Current: Current Medications Acetaminophen (Tylenol) 650 mg PO Q4H PRN PRN Reason: Pain (Mild 1-3)/fever Acetaminophen (Tylenol) 650 mg RECTAL Q4H PRN PRN Reason: Fever Last Admin: 12/28/20 06:01 Dose: 650 mg Documented by: Piperacillin Sod/Tazobactam (Sod 4.5 gm/ Sodium Chloride) 100 mls @ 25 mls/hr IV Q8H KWADWO Last Admin: 12/28/20 04:31 Dose: 25 mls/hr Documented by: Levofloxacin/Dextrose 750 mg/ (Premix) 150 mls @ 100 mls/hr IV Q48H KWADWO Vancomycin HCl 1 gm/ Sodium (Chloride) 250 mls @ 250 mls/hr IV Q24H KWADWO Lorazepam (Ativan) 0.5 mg IVPUSH Q1H PRN PRN Reason: Anxiety Last Admin: 12/28/20 00:04 Dose: 0.5 mg Documented by: Ondansetron HCl (Zofran) 4 mg IV Q4H PRN PRN Reason: Nausea/Vomiting Oxycodone HCl (Oxycodone) 5 mg PO Q4H PRN PRN Reason: Pain (moderate 4-6) Sodium Chloride (Saline Flush) 10 ml FLUSH ASDIRECTED PRN PRN Reason: Keep Vein Open Last Admin: 12/27/20 18:59 Dose: 10 ml Documented by: Tbo-Filgrastim (Granix) 300 mcg SUBCUT DAILY [facility] Vancomycin HCl (Pharmacy To Dose - Vancomycin) 1 dose .XX ASDIRECTED PRN PRN Reason: RX TO DOSE VANCO Warfarin Sodium (Pharmacy To Dose - Warfarin) 1 dose .XX ASDIRECTED PRN PRN Reason: RX TO DOSE WARFARIN Discontinued Medications Furosemide (Lasix) 40 mg IVPUSH NOW ONE Stop: 12/27/20 21:32 Last Admin: 12/27/20 22:07 Dose: 40 mg Documented by: Sodium Chloride (Normal Saline) 1,000 mls @ 100 mls/hr IV NOW STA Stop: 12/28/20 04:24 Last Admin: 12/27/20 21:34 Dose: Not Given Documented by: Sodium Chloride (Normal Saline) 500 mls @ 999 mls/hr IV NOW STA Stop: 12/27/20 18:55 Last Admin: 12/27/20 18:59 Dose: 999 mls/hr Documented by: Ceftriaxone Sodium 1 gm/ (Sodium Chloride) 100 mls @ 200 mls/hr IV ONETIME ONE Stop: 12/27/20 20:04 Last Admin: 12/27/20 20:07 Dose: 200 mls/hr Documented by: Piperacillin Sod/Tazobactam (Sod 4.5 gm/ Sodium Chloride) 100 mls @ 200 mls/hr IV ONETIME ONE Stop: 12/27/20 21:58 Last Admin: 12/27/20 22:07 Dose: 200 mls/hr Documented by: Levofloxacin/Dextrose 750 mg/ (Premix) 150 mls @ 100 mls/hr IV Q24H [facility] Last Admin: 12/27/20 22:08 Dose: 100 mls/hr Documented by: Vancomycin HCl 1.5 gm/ Sodium (Chloride) 500 mls @ 250 mls/hr IV ONETIME ONE Stop: 12/27/20 23:59 Last Admin: 02/01/21 22:22 Dose: 250 mls/hr Documented by: Vancomycin HCl 0.75 gm/ Sodium (Chloride) 250 mls @ 250 mls/hr IV Q24H [facility] Lactated Ringer's (Ringers, Lactated) 500 mls @ 999 mls/hr IV .BOLUS ONE Stop: 12/28/20 02:40 Last Admin: 12/28/20 02:16 Dose: 999 mls/hr Documented by: Lactated Ringer's (Ringers, Lactated) 500 mls @ 999 mls/hr IV .BOLUS ONE Stop: 12/28/20 04:31 Last Admin: 12/28/20 04:11 Dose: 999 mls/hr Documented by: Lactated Ringer's (Ringers, Lactated) 1,000 mls @ 790 mls/hr IV .BOLUS ONE Stop: 12/28/20 05:22 Last Admin: 12/28/20 04:20 Dose: 790 mls/hr Documented by: Lactated Ringer's (Ringers, Lactated) 790 mls @ 790 mls/hr IV .BOLUS ONE Stop: 12/28/20 05:06 Last Admin: 12/28/20 05:08 Dose: Not Given Documented by: No Warfarin Dose (Needed Tonight) 0 each PO ONETIME ONE Stop: 12/27/20 22:31 Last Admin: 12/27/20 22:55 Dose: Not Given Documented by: Tbo-Filgrastim (Granix) 300 mcg SUBCUT DAILY [facility] Sepsis Event Note - Evaluation Sepsis Screening Result: Severe Sepsis Risk - Focused Exam Vital Signs: Vital Signs Temp Temp Pulse Resp BP BP Pulse Ox 12/28/20 06:20 99.9 F 12/28/20 06:01 101.9 F H 132 H 45 H 95 12/28/20 06:00 124 H 45 H 87/61 L 95 12/28/20 05:59 131 H 44 H 96 12/28/20 05:52 12/28/20 05:49 136 H 45 H 92/61 94 L 12/28/20 05:48 137 H 45 H 94 L 12/28/20 05:45 132 H 44 H 83/59 L 94 L 12/28/20 05:44 132 H 45 H 93 L 12/28/20 05:30 130 H 43 H 92/65 94 L 12/28/20 05:29 126 H 44 H 95 12/28/20 05:15 129 H 43 H 95/55 L 94 L 12/28/20 05:14 139 H 43 H 94 L 12/28/20 05:01 137 H 44 H 93 L 12/28/20 05:00 140 H 43 H 89/68 L 93 L 12/28/20 04:59 131 H 44 H 93 L 12/28/20 04:45 132 H 38 H 94/62 94 L 12/28/20 04:44 132 H 44 H 94 L 12/28/20 04:31 133 H 44 H 92/68 94 L 12/28/20 04:30 137 H 44 H 94 L 12/28/20 04:15 43 H 85/57 L 12/28/20 04:14 43 H 12/28/20 04:01 41 H 12/28/20 04:00 98.9 F 42 H 85/58 L 85/58 L 93 L 12/28/20 03:59 42 H 12/28/20 03:46 42 H 89/62 L 12/28/20 03:45 42 H 12/28/20 03:30 41 H 97/61 12/28/20 03:29 41 H 12/28/20 03:15 41 H 86/66 L 12/28/20 03:14 40 H 12/28/20 03:01 41 H 12/28/20 03:00 33 H 87/60 L 12/28/20 02:59 40 H 12/28/20 02:54 12/28/20 02:46 41 H 96/48 L 12/28/20 02:45 41 H 12/28/20 02:31 33 H 88/66 L 12/28/20 02:30 42 H 12/28/20 02:16 38 H 94/56 L 12/28/20 02:15 37 H 12/28/20 02:07 99.9 F 12/28/20 02:01 43 H 96/56 L 12/28/20 02:00 38 H 12/28/20 01:52 133 H 41 H 92/57 L 94 L 12/28/20 01:51 134 H 41 H 94 L 12/28/20 01:46 45 L 47 H 82/52 L 92 L 12/28/20 01:45 44 L 48 H 91 L 12/28/20 01:37 101.4 F H 12/28/20 01:32 101.4 F H 48 H 95/54 L 91 L 12/28/20 01:31 139 H 31 H 95/54 L 93 L 12/28/20 01:30 139 H 36 H 90 L 12/28/20 01:16 45 L 41 H 97/68 91 L 12/28/20 01:15 128 H 41 H 91 L 12/28/20 01:01 133 H 41 H 98/57 L 91 L 12/28/20 01:00 128 H 41 H 91 L 12/28/20 00:46 124 H 39 H 91/66 93 L 12/28/20 00:45 127 H 41 H 93 L 12/28/20 00:31 129 H 40 H 90/59 L 94 L 12/28/20 00:30 121 H 40 H 94 L 12/28/20 00:16 121 H 40 H 93/65 95 12/28/20 00:15 124 H 40 H 95 12/28/20 00:02 42 H 169/141 H 12/28/20 00:01 42 H 12/28/20 00:00 99 F 41 H 105/71 96 12/27/20 23:46 36 H 105/71 12/27/20 23:45 34 H 12/27/20 23:30 35 H 111/76 12/27/20 23:29 31 H 12/27/20 23:27 38 H 136/58 L 12/27/20 23:26 27 H 12/27/20 23:23 36 H 12/27/20 23:22 31 H 12/27/20 23:17 36 H 137/67 12/27/20 23:16 37 H 12/27/20 23:00 119 H 32 H 96 12/27/20 22:33 98.9 F 30 H 101/57 L 97 12/27/20 22:14 69 38 H 101/57 L 96 12/27/20 22:13 110 H 36 H 96 12/27/20 22:00 101 H 33 H 96 12/27/20 21:50 Pulse Ox 12/28/20 06:20 12/28/20 06:01 12/28/20 06:00 12/28/20 05:59 12/28/20 05:52 94 L 12/28/20 05:49 12/28/20 05:48 12/28/20 05:45 12/28/20 05:44 12/28/20 05:30 12/28/20 05:29 12/28/20 05:15 12/28/20 05:14 12/28/20 05:01 12/28/20 05:00 12/28/20 04:59 12/28/20 04:45 12/28/20 04:44 12/28/20 04:31 12/28/20 04:30 12/28/20 04:15 12/28/20 04:14 12/28/20 04:01 12/28/20 04:00 12/28/20 03:59 12/28/20 03:46 12/28/20 03:45 12/28/20 03:30 12/28/20 03:29 12/28/20 03:15 12/28/20 03:14 12/28/20 03:01 12/28/20 03:00 12/28/20 02:59 12/28/20 02:54 94 L 12/28/20 02:46 12/28/20 02:45 12/28/20 02:31 12/28/20 02:30 12/28/20 02:16 12/28/20 02:15 12/28/20 02:07 12/28/20 02:01 12/28/20 02:00 12/28/20 01:52 12/28/20 01:51 12/28/20 01:46 12/28/20 01:45 12/28/20 01:37 12/28/20 01:32 12/28/20 01:31 12/28/20 01:30 12/28/20 01:16 12/28/20 01:15 12/28/20 01:01 12/28/20 01:00 12/28/20 00:46 12/28/20 00:45 12/28/20 00:31 12/28/20 00:30 12/28/20 00:16 12/28/20 00:15 12/28/20 00:02 12/28/20 00:01 12/28/20 00:00 12/27/20 23:46 12/27/20 23:45 12/27/20 23:30 12/27/20 23:29 12/27/20 23:27 12/27/20 23:26 12/27/20 23:23 12/27/20 23:22 12/27/20 23:17 12/27/20 23:16 12/27/20 23:00 12/27/20 22:33 12/27/20 22:14 12/27/20 22:13 12/27/20 22:00 12/27/20 21:50 97 - Problem List & Annotations (1) Neutropenic fever SNOMED Code(s): 055580432 Code(s): D70.9 - NEUTROPENIA, UNSPECIFIED; R50.81 - FEVER PRESENTING WITH CONDITIONS CLASSIFIED ELSEWHERE Status: Acute Current Visit: Yes (2) Hospital-acquired pneumonia SNOMED Code(s): 976662029 Code(s): J18.9 - PNEUMONIA, UNSPECIFIED ORGANISM; Y95 - NOSOCOMIAL CONDITION Status: Acute Current Visit: Yes (3) Diverticulitis SNOMED Code(s): 135665876 Code(s): K57.92 - DVTRCLI OF INTEST, PART UNSP, W/O PERF OR ABSCESS W/O BLEED Status: Acute Current Visit: Yes (4) Congestive heart failure SNOMED Code(s): 07005904 Code(s): I50.9 - HEART FAILURE, UNSPECIFIED Status: Acute Current Visit: No Qualifiers: Heart failure type: unspecified Heart failure chronicity: acute on chronic Qualified Code(s): I50.9 - Heart failure, unspecified (5) Elevated troponin SNOMED Code(s): 826353913, 764469945, 454285775 Code(s): R77.8 - OTHER SPECIFIED ABNORMALITIES OF PLASMA PROTEINS Status: Acute Priority: High Current Visit: No (6) Generalized weakness SNOMED Code(s): 50607831 Code(s): R53.1 - WEAKNESS Status: Acute Priority: High Current Visit: No (7) Severe neutropenia SNOMED Code(s): 607104531 Code(s): D70.9 - NEUTROPENIA, UNSPECIFIED Status: Acute Priority: High Current Visit: No (8) Supratherapeutic INR SNOMED Code(s): 104376376 Code(s): R79.1 - ABNORMAL COAGULATION PROFILE Status: Acute Current Visit: No (9) Atrial fibrillation SNOMED Code(s): 85395784 Code(s): I48.91 - UNSPECIFIED ATRIAL FIBRILLATION Status: Chronic P riority: Medium Current Visit: No Qualifiers: Atrial fibrillation type: paroxysmal Qualified Code(s): I48.0 - Paroxysmal atrial fibrillation - My Orders Last 24 Hours: My Active Orders 12/27/20 21:25 Up With Assistance [RC] ASDIRECTED Vital Signs [RC] Q4HR Consult to Senior Wealth Advisor [CONS] Routine Acetaminophen [TylenoL] 650 mg PO Q4H PRN Ondansetron [Zofran] 4 mg IV Q4H PRN oxyCODONE 5 mg PO Q4H PRN 12/27/20 21:26 Oxygen Therapy [RC] .PRN VTE/DVT Education [RC] BID 12/27/20 21:30 Pharmacy to Dose - Vancomycin 1 dose .XX ASDIRECTED PRN Pharmacy to Dose - Warfarin 1 dose .XX ASDIRECTED PRN Piperacillin/Tazobactam [Piperacil-Tazobact] 4.5 gm Sodium Chloride 0.9% [Normal Saline] 100 ml IV Q8H 12/27/20 21:37 RT Chest Physiotherapy [RC] .PRN RT Incentive Spirometry [RC] .PRN CULTURE SPUTUM + SMEAR [RM] Routine 12/27/20 21:59 RT BiPAP/CPAP [RC] ASDIRECTED 12/27/20 22:36 Urinary Catheter Assessment [RC] Q4HR 12/27/20 22:45 Insert Arroyo Catheter [Insert Urinary Catheter] [OM.PC] Q24H 12/27/20 23:52 LORazepam [Ativan] 0.5 mg IVPUSH Q1H PRN 12/27/20 23:53 Code Status [Resuscitation Status] Routine 12/28/20 01:29 Acetaminophen [Tylenol] 650 mg RECTAL Q4H PRN 12/28/20 Breakfast Regular Diet [DIET] 12/28/20 07:09 METH-RESIST S.AUR,MRSA BY PCR [MOLEC] Stat 12/28/20 09:00 Tbo-Filgrastim [Granix] 300 mcg SUBCUT DAILY 12/28/20 23:00 Vancomycin [Vancocin] 1 gm Sodium Chloride 0.9% [Normal Saline (AdvBag)] 250 ml IV Q24H 12/29/20 19:00 Levofloxacin/Dextrose 5%-Water [Levaquin in D5W 750 MG/150 ML] 750 mg Premix Bag 1 bag IV Q48H
--- NOTE | 2020-12-28 08:39 | CR ---
Chest: Portable view of the chest was obtained. Comparison: Prior chest x-ray of 12/06/20. Mild increasing density is seen within both lung bases, particularly on the right side. Right-sided infusion port is seen. Heart is enlarged. 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 Bony structures are grossly intact. Impression: 1. Slight density within both lung bases, worse on the right side. Difficult to exclude areas of atelectasis or small areas of pneumonia. 2. Stable cardiomegaly with prior sternotomy and infusion port. Diagnostic code #3
--- NOTE | 2020-12-28 09:39 | PCM.SN.2 ---
- Free Text/Narrative Note: Called patient bedside at midnight secondary to acute episode of hypoxemia requiring supplementation with 100% FiO2 and increasing BiPAP settings. Patient recovered in regards to his oxygenation and was able to go back on BiPAP settings of 14/7 and 50% FiO2. Unfortunately his tachypnea worsened and his respiratory rate increased to the 40s. Also heart rate increased into the 130s with stable but slowly decreasing blood pressures.Low to upper 90s systolic following the episode. Patient was clearly anxious, but responsive. Heart was tachycardic and irregular. Lungs: Respiratory rate elevated in the 40s, coarse crackles throughout both lung cope, tracheal tugging, pursed lip breathing, increased use of intercostal muscles. I spoke with him, his , and 1 son in regards to his CODE STATUS. I discussed with them the likely increase the need to intubate him if he is going to continue to one of the full CODE STATUS. I also explained to them that his overall prognosis is very poor and intubation will likely prolong life without benefit of cure and likely cause a increase in suffering. After further discussion patient seemed to understand with his 's help that he did not want to be intubated or have CPR done, but still wanted us to proceed with aggressive care to that point. He is converted to DNR/DNI. Continue on BiPAP and if blood pressures drop will bolus him with IV fluids.
[2020-12-28] MEDS: Digoxin 500 MCG/2 ML Amp IVPUSH SCH ×3 (10:15→22:08)
--- NOTE | 2020-12-28 13:58 | PCM.PN ---
- General Info Date of Service: 12/28/20 Subjective Update: Patient continues to be on BiPAP. He is unable to be removed off of the BiPAP for more than a few seconds without having severe desaturations. Patient also continues to have severe respiratory failure with respiratory rate in the upper 40s to 50s. Patient is poorly ventilating, therefore PCO2 has been increasing even with the increased respiratory rate. We increased her settings on her IPAP in hopes to improve her PCO2. He had some improvement, but still is acidotic. Tyson received 1 mg of Ativan last night and he was barely arousable and tell midmorning. He did start opening his eyes and now does respond but because of the BiPAP it is impossible to know if he understands. Patient was unable to take Coumadin today. Tyson was also unable to take his metoprolol so he was started on IV digoxin 250 mcg every 6 hours x3 doses. - Review of Systems General: Reports: Other (Unable to obtain review of systems because of respiratory failure) - Patient Data Vitals - Most Recent: Last Vital Signs Temp 98.7 F 12/28/20 13:16 Pulse 54 L 12/28/20 11:00 Resp 50 H 12/28/20 13:16 BP 97/60 12/28/20 13:16 Pulse Ox 93 L 12/28/20 13:16 Weight - Most Recent: 131 lb 8 oz I&O - Last 24 Hours: Intake & Output 12/27/20 12/28/20 12/28/20 22:59 06:59 14:59 Intake Total 1250 100 Output Total 900 145 Balance 350 -45 Lab Results Last 24 Hours: Laboratory Results - last 24 hr 12/27/20 12/27/20 12/27/20 Range/Units 18:30 18:56 18:56 WBC 0.34 L* (4.23-9.07) K/mm3 RBC 3.14 L (4.63-6.08) M/mm3 Hgb 8.9 L (13.7-17.5) gm/dl Hct 28.3 L (40.1-51.0) % MCV 90.1 (79.0-92.2) fl MCH 28.3 (25.7-32.2) pg MCHC 31.4 L (32.2-35.5) g/dl RDW Std Deviation 55.8 H (35.1-43.9) fL Plt Count 200 (163-337) K/mm3 MPV 9.7 (9.4-12.3) fl Neut % (Auto) (34.0-67.9) % Lymph % (Auto) (21.8-53.1) % [place] % (Auto) (5.3-12.2) % Eos % (Auto) (0.8-7.0) Baso % (Auto) (0.1-1.2) % Neut # (Auto) (1.78-5.38) K/mm3 Lymph # (Auto) (1.32-3.57) K/mm3 [place] # (Auto) (0.30-0.82) K/mm3 Eos # (Auto) (0.04-0.54) K/mm3 Baso # (Auto) (0.01-0.08) K/mm3 Neutrophils % (Manual) 28 L (40-60) % Band Neutrophils % 0 (0-10) % Lymphocytes % (Manual) 64 H (20-40) % Atypical Lymphs % 0 % Monocytes % (Manual) 8 (2-10) % Eosinophils % (Manual) 0 L (0.8-7.0) % Basophils % (Manual) 0 L (0.2-1.2) Manual Slide Review Platelet Estimate Adequate Anisocytosis 1+ slight RBC Morph Comment Not Reportable PT 32.3 H D (9.7-12.0) SECONDS INR 3.09 APTT (21.7-31.4) SECONDS Puncture Site Rt radial ABG pH 7.47 H (7.35-7.45) ABG pCO2 45.3 H (35.0-45.0) mmHg ABG pO2 51.0 L (80.0-100.0) mmHg ABG HCO3 32.8 H (22.0-26.0) meq/L ABG O2 Saturation 82.4 L (96.0-97.0) % ABG Base Excess 8.5 H (-2-2.0) Jose David Test Positive A-a Gradient 149 mmHg O2 Delivery Device Nasal cannula Oxygen Flow Rate 4.0 FiO2 36.00 (21.00-100.00) % Blood Gas Comments Sodium (136-145) mEq/L Potassium (3.5-5.1) mEq/L Chloride (98-107) mEq/L Carbon Dioxide (21-32) mEq/L Anion Gap (5-15) BUN (7-18) mg/dL Creatinine (0.7-1.3) mg/dL Est Cr Clr Drug Dosing mL/min Estimated GFR (MDRD) (>60) mL/min BUN/Creatinine Ratio (14-18) Glucose (83-115) mg/dL Lactic Acid (0.4-2.0) mmol/L Calcium (8.5-10.1) mg/dL Magnesium (1.8-2.4) mg/dl Total Bilirubin (0.2-1.0) mg/dL AST (15-37) U/L ALT (16-63) U/L Alkaline Phosphatase (46-116) U/L Troponin I (0.00-0.056) ng/mL C-Reactive Protein (<1.0) mg/dL NT-Pro-B Natriuret Pep (0-450) pg/mL Total Protein (6.4-8.2) g/dl Albumin (3.4-5.0) g/dl Globulin gm/dL Albumin/Globulin Ratio (1-2) Urine Color (Yellow) Urine Appearance (Clear) Urine pH (5.0-8.0) Ur Specific [place] (1.005-1.030) Urine Protein (Negative) Urine Glucose (UA) (Negative) Urine Ketones (Negative) Urine Occult Blood (Negative) Urine Nitrite (Negative) Urine Bilirubin (Negative) Urine Urobilinogen (0.2-1.0) Ur Leukocyte Esterase (Negative) Urine RBC (0-5) /hpf Urine WBC (0-5) /hpf Ur Squamous Epith Cells (0-5) /hpf Urine Bacteria (FEW) /hpf Urine Mucus (FEW) /hpf SARS-CoV-2 RNA (JACKY) (NEGATIVE) 12/27/20 12/27/20 12/27/20 Range/Units 18:56 18:56 18:56 WBC (4.23-9.07) K/mm3 RBC (4.63-6.08) M/mm3 Hgb (13.7-17.5) gm/dl Hct (40.1-51.0) % MCV (79.0-92.2) fl MCH (25.7-32.2) pg MCHC (32.2-35.5) g/dl RDW Std Deviation (35.1-43.9) fL Plt Count (163-337) K/mm3 MPV (9.4-12.3) fl Neut % (Auto) (34.0-67.9) % Lymph % (Auto) (21.8-53.1) % [place] % (Auto) (5.3-12.2) % Eos % (Auto) (0.8-7.0) Baso % (Auto) (0.1-1.2) % Neut # (Auto) (1.78-5.38) K/mm3 Lymph # (Auto) (1.32-3.57) K/mm3 [place] # (Auto) (0.30-0.82) K/mm3 Eos # (Auto) (0.04-0.54) K/mm3 Baso # (Auto) (0.01-0.08) K/mm3 Neutrophils % (Manual) (40-60) % Band Neutrophils % (0-10) % Lymphocytes % (Manual) (20-40) % Atypical Lymphs % % Monocytes % (Manual) (2-10) % Eosinophils % (Manual) (0.8-7.0) % Basophils % (Manual) (0.2-1.2) Manual Slide Review Platelet Estimate Anisocytosis RBC Morph Comment PT (9.7-12.0) SECONDS INR APTT (21.7-31.4) SECONDS Puncture Site ABG pH (7.35-7.45) ABG pCO2 (35.0-45.0) mmHg ABG pO2 (80.0-100.0) mmHg ABG HCO3 (22.0-26.0) meq/L ABG O2 Saturation (96.0-97.0) % ABG Base Excess (-2-2.0) Jose David Test A-a Gradient mmHg O2 Delivery Device Oxygen Flow Rate FiO2 (21.00-100.00) % Blood Gas Comments Sodium 139 (136-145) mEq/L Potassium 3.9 (3.5-5.1) mEq/L Chloride 99 (98-107) mEq/L Carbon Dioxide 33 H (21-32) mEq/L Anion Gap 10.9 (5-15) BUN 34 H (7-18) mg/dL Creatinine 1.1 (0.7-1.3) mg/dL Est Cr Clr Drug Dosing 44.02 mL/min Estimated GFR (MDRD) > 60 (>60) mL/min BUN/Creatinine Ratio 30.9 H (14-18) Glucose 139 H (83-115) mg/dL Lactic Acid 0.9 (0.4-2.0) mmol/L Calcium 6.9 L (8.5-10.1) mg/dL Magnesium 2.1 (1.8-2.4) mg/dl Total Bilirubin 1.8 H (0.2-1.0) mg/dL AST 34 (15-37) U/L ALT 24 (16-63) U/L Alkaline Phosphatase 147 H (46-116) U/L Troponin I (0.00-0.056) ng/mL C-Reactive Protein 21.0 H* (<1.0) mg/dL NT-Pro-B Natriuret Pep 4899 H (0-450) pg/mL Total Protein 6.8 (6.4-8.2) g/dl Albumin 2.5 L (3.4-5.0) g/dl Globulin 4.3 gm/dL Albumin/Globulin Ratio 0.6 L (1-2) Urine Color (Yellow) Urine Appearance (Clear) Urine pH (5.0-8.0) Ur Specific [place] (1.005-1.030) Urine Protein (Negative) Urine Glucose (UA) (Negative) Urine Ketones (Negative) Urine Occult Blood (Negative) Urine Nitrite (Negative) Urine Bilirubin (Negative) Urine Urobilinogen (0.2-1.0) Ur Leukocyte Esterase (Negative) Urine RBC (0-5) /hpf Urine WBC (0-5) /hpf Ur Squamous Epith Cells (0-5) /hpf Urine Bacteria (FEW) /hpf Urine Mucus (FEW) /hpf SARS-CoV-2 RNA (JACKY) (NEGATIVE) 12/27/20 12/27/20 12/27/20 Range/Units 18:56 19:00 19:20 WBC (4.23-9.07) K/mm3 RBC (4.63-6.08) M/mm3 Hgb (13.7-17.5) gm/dl Hct (40.1-51.0) % MCV (79.0-92.2) fl MCH (25.7-32.2) pg MCHC (32.2-35.5) g/dl RDW Std Deviation (35.1-43.9) fL Plt Count (163-337) K/mm3 MPV (9.4-12.3) fl Neut % (Auto) (34.0-67.9) % Lymph % (Auto) (21.8-53.1) % [place] % (Auto) (5.3-12.2) % Eos % (Auto) (0.8-7.0) Baso % (Auto) (0.1-1.2) % Neut # (Auto) (1.78-5.38) K/mm3 Lymph # (Auto) (1.32-3.57) K/mm3 [place] # (Auto) (0.30-0.82) K/mm3 Eos # (Auto) (0.04-0.54) K/mm3 Baso # (Auto) (0.01-0.08) K/mm3 Neutrophils % (Manual) (40-60) % Band Neutrophils % (0-10) % Lymphocytes % (Manual) (20-40) % Atypical Lymphs % % Monocytes % (Manual) (2-10) % Eosinophils % (Manual) (0.8-7.0) % Basophils % (Manual) (0.2-1.2) Manual Slide Review Platelet Estimate Anisocytosis RBC Morph Comment PT (9.7-12.0) SECONDS INR APTT (21.7-31.4) SECONDS Puncture Site ABG pH (7.35-7.45) ABG pCO2 (35.0-45.0) mmHg ABG pO2 (80.0-100.0) mmHg ABG HCO3 (22.0-26.0) meq/L ABG O2 Saturation (96.0-97.0) % ABG Base Excess (-2-2.0) Jose David Test A-a Gradient mmHg O2 Delivery Device Oxygen Flow Rate FiO2 (21.00-100.00) % Blood Gas Comments Sodium (136-145) mEq/L Potassium (3.5-5.1) mEq/L Chloride (98-107) mEq/L Carbon Dioxide (21-32) mEq/L Anion Gap (5-15) BUN (7-18) mg/dL Creatinine (0.7-1.3) mg/dL Est Cr Clr Drug Dosing mL/min Estimated GFR (MDRD) (>60) mL/min BUN/Creatinine Ratio (14-18) Glucose (83-115) mg/dL Lactic Acid (0.4-2.0) mmol/L Calcium (8.5-10.1) mg/dL Magnesium (1.8-2.4) mg/dl Total Bilirubin (0.2-1.0) mg/dL AST (15-37) U/L ALT (16-63) U/L Alkaline Phosphatase (46-116) U/L Troponin I 0.059 H* (0.00-0.056) ng/mL C-Reactive Protein (<1.0) mg/dL NT-Pro-B Natriuret Pep (0-450) pg/mL Total Protein (6.4-8.2) g/dl Albumin (3.4-5.0) g/dl Globulin gm/dL Albumin/Globulin Ratio (1-2) Urine Color Yellow (Yellow) Urine Appearance Slt cloudy H (Clear) Urine pH 7.0 (5.0-8.0) Ur Specific [place] 1.015 (1.005-1.030) Urine Protein 1+ H (Negative) Urine Glucose (UA) Negative (Negative) Urine Ketones Negative (Negative) Urine Occult Blood 2+ H (Negative) Urine Nitrite Negative (Negative) Urine Bilirubin Negative (Negative) Urine Urobilinogen 0.2 (0.2-1.0) Ur Leukocyte Esterase 1+ H (Negative) Urine RBC 0-5 (0-5) /hpf Urine WBC 5-10 H (0-5) /hpf Ur Squamous Epith Cells 5-10 H (0-5) /hpf Urine Bacteria Moderate H (FEW) /hpf Urine Mucus Few (FEW) /hpf SARS-CoV-2 RNA (JACKY) Negative (NEGATIVE) 12/27/20 12/28/20 12/28/20 Range/Units 22:28 04:19 04:19 WBC 0.32 L* (4.23-9.07) K/mm3 RBC 2.80 L (4.63-6.08) M/mm3 Hgb 8.0 L (13.7-17.5) gm/dl Hct 26.0 L (40.1-51.0) % MCV 92.9 H (79.0-92.2) fl MCH 28.6 (25.7-32.2) pg MCHC 30.8 L (32.2-35.5) g/dl RDW Std Deviation 57.6 H (35.1-43.9) fL Plt Count 215 (163-337) K/mm3 MPV 9.8 (9.4-12.3) fl Neut % (Auto) 43.7 (34.0-67.9) % Lymph % (Auto) 28.1 (21.8-53.1) % [place] % (Auto) 18.8 H (5.3-12.2) % Eos % (Auto) 0 L (0.8-7.0) Baso % (Auto) 0.0 L (0.1-1.2) % Neut # (Auto) 0.14 L (1.78-5.38) K/mm3 Lymph # (Auto) 0.09 L (1.32-3.57) K/mm3 [place] # (Auto) 0.06 L (0.30-0.82) K/mm3 Eos # (Auto) 0.00 L (0.04-0.54) K/mm3 Baso # (Auto) 0.00 L (0.01-0.08) K/mm3 Neutrophils % (Manual) (40-60) % Band Neutrophils % (0-10) % Lymphocytes % (Manual) (20-40) % Atypical Lymphs % % Monocytes % (Manual) (2-10) % Eosinophils % (Manual) (0.8-7.0) % Basophils % (Manual) (0.2-1.2) Manual Slide Review Abnormal smear Platelet Estimate Anisocytosis RBC Morph Comment PT (9.7-12.0) SECONDS INR APTT (21.7-31.4) SECONDS Puncture Site Lt radial ABG pH 7.40 (7.35-7.45) ABG pCO2 49.6 H (35.0-45.0) mmHg ABG pO2 83.0 (80.0-100.0) mmHg ABG HCO3 30.2 H (22.0-26.0) meq/L ABG O2 Saturation 96.6 (96.0-97.0) % ABG Base Excess 5.2 H (-2-2.0) Jose David Test Positive A-a Gradient 211 mmHg O2 Delivery Device Bipap Oxygen Flow Rate FiO2 50.00 (21.00-100.00) % Blood Gas Comments 08/06 Sodium (136-145) mEq/L Potassium (3.5-5.1) mEq/L Chloride (98-107) mEq/L Carbon Dioxide (21-32) mEq/L Anion Gap (5-15) BUN (7-18) mg/dL Creatinine (0.7-1.3) mg/dL Est Cr Clr Drug Dosing mL/min Estimated GFR (MDRD) (>60) mL/min BUN/Creatinine Ratio (14-18) Glucose (83-115) mg/dL Lactic Acid 1.0 (0.4-2.0) mmol/L Calcium (8.5-10.1) mg/dL Magnesium (1.8-2.4) mg/dl Total Bilirubin (0.2-1.0) mg/dL AST (15-37) U/L ALT (16-63) U/L Alkaline Phosphatase (46-116) U/L Troponin I (0.00-0.056) ng/mL C-Reactive Protein (<1.0) mg/dL NT-Pro-B Natriuret Pep (0-450) pg/mL Total Protein (6.4-8.2) g/dl Albumin (3.4-5.0) g/dl Globulin gm/dL Albumin/Globulin Ratio (1-2) Urine Color (Yellow) Urine Appearance (Clear) Urine pH (5.0-8.0) Ur Specific [place] (1.005-1.030) Urine Protein (Negative) Urine Glucose (UA) (Negative) Urine Ketones (Negative) Urine Occult Blood (Negative) Urine Nitrite (Negative) Urine Bilirubin (Negative) Urine Urobilinogen (0.2-1.0) Ur Leukocyte Esterase (Negative) Urine RBC (0-5) /hpf Urine WBC (0-5) /hpf Ur Squamous Epith Cells (0-5) /hpf Urine Bacteria (FEW) /hpf Urine Mucus (FEW) /hpf SARS-CoV-2 RNA (JACKY) (NEGATIVE) 12/28/20 12/28/20 12/28/20 Range/Units 04:19 04:19 10:00 WBC (4.23-9.07) K/mm3 RBC (4.63-6.08) M/mm3 Hgb (13.7-17.5) gm/dl Hct (40.1-51.0) % MCV (79.0-92.2) fl MCH (25.7-32.2) pg MCHC (32.2-35.5) g/dl RDW Std Deviation (35.1-43.9) fL Plt Count (163-337) K/mm3 MPV (9.4-12.3) fl Neut % (Auto) (34.0-67.9) % Lymph % (Auto) (21.8-53.1) % [place] % (Auto) (5.3-12.2) % Eos % (Auto) (0.8-7.0) Baso % (Auto) (0.1-1.2) % Neut # (Auto) (1.78-5.38) K/mm3 Lymph # (Auto) (1.32-3.57) K/mm3 [place] # (Auto) (0.30-0.82) K/mm3 Eos # (Auto) (0.04-0.54) K/mm3 Baso # (Auto) (0.01-0.08) K/mm3 Neutrophils % (Manual) (40-60) % Band Neutrophils % (0-10) % Lymphocytes % (Manual) (20-40) % Atypical Lymphs % % Monocytes % (Manual) (2-10) % Eosinophils % (Manual) (0.8-7.0) % Basophils % (Manual) (0.2-1.2) Manual Slide Review Platelet Estimate Anisocytosis RBC Morph Comment PT 27.5 H (9.7-12.0) SECONDS INR 2.62 APTT 44.5 H (21.7-31.4) SECONDS Puncture Site Rt radial ABG pH 7.26 L (7.35-7.45) ABG pCO2 64.7 H (35.0-45.0) mmHg ABG pO2 94.0 (80.0-100.0) mmHg ABG HCO3 28.2 H (22.0-26.0) meq/L ABG O2 Saturation 97.5 H (96.0-97.0) % ABG Base Excess 1.1 (-2-2.0) Jose David Test Positive A-a Gradient 182 mmHg O2 Delivery Device Bipap Oxygen Flow Rate 0.0 FiO2 50.00 (21.00-100.00) % Blood Gas Comments Bipap 14/7 Sodium 140 (136-145) mEq/L Potassium 4.2 (3.5-5.1) mEq/L Chloride 98 (98-107) mEq/L Carbon Dioxide 33 H (21-32) mEq/L Anion Gap 13.2 (5-15) BUN 34 H (7-18) mg/dL Creatinine 1.4 H (0.7-1.3) mg/dL Est Cr Clr Drug Dosing 37.28 mL/min Estimated GFR (MDRD) 49 (>60) mL/min BUN/Creatinine Ratio 24.3 H (14-18) Glucose 139 H (83-115) mg/dL Lactic Acid (0.4-2.0) mmol/L Calcium 6.3 L (8.5-10.1) mg/dL Magnesium (1.8-2.4) mg/dl Total Bilirubin 1.3 H (0.2-1.0) mg/dL AST 33 (15-37) U/L ALT 17 (16-63) U/L Alkaline Phosphatase 106 (46-116) U/L Troponin I 0.121 H* (0.00-0.056) ng/mL C-Reactive Protein 24.2 H* (<1.0) mg/dL NT-Pro-B Natriuret Pep (0-450) pg/mL Total Protein 5.9 L (6.4-8.2) g/dl Albumin 2.0 L (3.4-5.0) g/dl Globulin 3.9 gm/dL Albumin/Globulin Ratio 0.5 L (1-2) Urine Color (Yellow) Urine Appearance (Clear) Urine pH (5.0-8.0) Ur Specific [place] (1.005-1.030) Urine Protein (Negative) Urine Glucose (UA) (Negative) Urine Ketones (Negative) Urine Occult Blood (Negative) Urine Nitrite (Negative) Urine Bilirubin (Negative) Urine Urobilinogen (0.2-1.0) Ur Leukocyte Esterase (Negative) Urine RBC (0-5) /hpf Urine WBC (0-5) /hpf Ur Squamous Epith Cells (0-5) /hpf Urine Bacteria (FEW) /hpf Urine Mucus (FEW) /hpf SARS-CoV-2 RNA (JACKY) (NEGATIVE) 12/28/20 Range/Units 11:45 WBC (4.23-9.07) K/mm3 RBC (4.63-6.08) M/mm3 Hgb (13.7-17.5) gm/dl Hct (40.1-51.0) % MCV (79.0-92.2) fl MCH (25.7-32.2) pg MCHC (32.2-35.5) g/dl RDW Std Deviation (35.1-43.9) fL Plt Count (163-337) K/mm3 MPV (9.4-12.3) fl Neut % (Auto) (34.0-67.9) % Lymph % (Auto) (21.8-53.1) % [place] % (Auto) (5.3-12.2) % Eos % (Auto) (0.8-7.0) Baso % (Auto) (0.1-1.2) % Neut # (Auto) (1.78-5.38) K/mm3 Lymph # (Auto) (1.32-3.57) K/mm3 [place] # (Auto) (0.30-0.82) K/mm3 Eos # (Auto) (0.04-0.54) K/mm3 Baso # (Auto) (0.01-0.08) K/mm3 Neutrophils % (Manual) (40-60) % Band Neutrophils % (0-10) % Lymphocytes % (Manual) (20-40) % Atypical Lymphs % % Monocytes % (Manual) (2-10) % Eosinophils % (Manual) (0.8-7.0) % Basophils % (Manual) (0.2-1.2) Manual Slide Review Platelet Estimate Anisocytosis RBC Morph Comment PT (9.7-12.0) SECONDS INR APTT (21.7-31.4) SECONDS Puncture Site Lt radial ABG pH 7.28 L (7.35-7.45) ABG pCO2 59.9 H (35.0-45.0) mmHg ABG pO2 71.0 L (80.0-100.0) mmHg ABG HCO3 27.2 H (22.0-26.0) meq/L ABG O2 Saturation 92.8 L (96.0-97.0) % ABG Base Excess 0.6 (-2-2.0) Jose David Test Positive A-a Gradient 140 mmHg O2 Delivery Device Bipap Oxygen Flow Rate 0.0 FiO2 40.00 (21.00-100.00) % Blood Gas Comments Bipap 18/8 Sodium (136-145) mEq/L Potassium (3.5-5.1) mEq/L Chloride (98-107) mEq/L Carbon Dioxide (21-32) mEq/L Anion Gap (5-15) BUN (7-18) mg/dL Creatinine (0.7-1.3) mg/dL Est Cr Clr Drug Dosing mL/min Estimated GFR (MDRD) (>60) mL/min BUN/Creatinine Ratio (14-18) Glucose (83-115) mg/dL Lactic Acid (0.4-2.0) mmol/L Calcium (8.5-10.1) mg/dL Magnesium (1.8-2.4) mg/dl Total Bilirubin (0.2-1.0) mg/dL AST (15-37) U/L ALT (16-63) U/L Alkaline Phosphatase (46-116) U/L Troponin I (0.00-0.056) ng/mL C-Reactive Protein (<1.0) mg/dL NT-Pro-B Natriuret Pep (0-450) pg/mL Total Protein (6.4-8.2) g/dl Albumin (3.4-5.0) g/dl Globulin gm/dL Albumin/Globulin Ratio (1-2) Urine Color (Yellow) Urine Appearance (Clear) Urine pH (5.0-8.0) Ur Specific [place] (1.005-1.030) Urine Protein (Negative) Urine Glucose (UA) (Negative) Urine Ketones (Negative) Urine Occult Blood (Negative) Urine Nitrite (Negative) Urine Bilirubin (Negative) Urine Urobilinogen (0.2-1.0) Ur Leukocyte Esterase (Negative) Urine RBC (0-5) /hpf Urine WBC (0-5) /hpf Ur Squamous Epith Cells (0-5) /hpf Urine Bacteria (FEW) /hpf Urine Mucus (FEW) /hpf SARS-CoV-2 RNA (JACKY) (NEGATIVE) Med Orders - Current: Current Medications Acetaminophen (Tylenol) 650 mg PO Q4H PRN PRN Reason: Pain (Mild 1-3)/fever Acetaminophen (Tylenol) 650 mg RECTAL Q4H PRN PRN Reason: Fever Last Admin: 12/28/20 06:01 Dose: 650 mg Documented by: Digoxin (Lanoxin) 250 mcg IVPUSH Q6H [facility] Stop: 12/28/20 22:01 Last Admin: 12/28/20 10:15 Dose: 250 mcg Documented by: Piperacillin Sod/Tazobactam (Sod 4.5 gm/ Sodium Chloride) 100 mls @ 25 mls/hr IV Q8H [facility] Last Admin: 12/28/20 13:12 Dose: 25 mls/hr Documented by: Levofloxacin/Dextrose 750 mg/ (Premix) 150 mls @ 100 mls/hr IV Q48H [facility] Vancomycin HCl 1 gm/ Sodium (Chloride) 250 mls @ 250 mls/hr IV Q24H [facility] Sodium Chloride (Normal Saline) 1,000 mls @ 125 mls/hr IV ASDIRECTED [facility] Lorazepam (Ativan) 0.5 mg IVPUSH Q1H PRN PRN Reason: Anxiety Last Admin: 12/28/20 00:04 Dose: 0.5 mg Documented by: Ondansetron HCl (Zofran) 4 mg IV Q4H PRN PRN Reason: Nausea/Vomiting Oxycodone HCl (Oxycodone) 5 mg PO Q4H PRN PRN Reason: Pain (moderate 4-6) Sodium Chloride (Saline Flush) 10 ml FLUSH ASDIRECTED PRN PRN Reason: Keep Vein Open Last Admin: 12/27/20 18:59 Dose: 10 ml Documented by: Tbo-Filgrastim (Granix) 300 mcg SUBCUT DAILY [facility] Last Admin: 12/28/20 08:41 Dose: 300 mcg Documented by: Vancomycin HCl (Pharmacy To Dose - Vancomycin) 1 dose .XX ASDIRECTED PRN PRN Reason: RX TO DOSE VANCO Warfarin Sodium (Pharmacy To Dose - Warfarin) 1 dose .XX ASDIRECTED PRN PRN Reason: RX TO DOSE WARFARIN Warfarin Sodium (Coumadin) 2 mg PO QPM [facility] Stop: 12/28/20 18:01 Discontinued Medications Furosemide (Lasix) 40 mg IVPUSH NOW ONE Stop: 12/27/20 21:32 Last Admin: 12/27/20 22:07 Dose: 40 mg Documented by: Sodium Chloride (Normal Saline) 1,000 mls @ 100 mls/hr IV NOW STA Stop: 12/28/20 04:24 Last Admin: 12/27/20 21:34 Dose: Not Given Documented by: Sodium Chloride (Normal Saline) 500 mls @ 999 mls/hr IV NOW STA Stop: 12/27/20 18:55 Last Admin: 12/27/20 18:59 Dose: 999 mls/hr Documented by: Ceftriaxone Sodium 1 gm/ (Sodium Chloride) 100 mls @ 200 mls/hr IV ONETIME ONE Stop: 12/27/20 20:04 Last Admin: 12/27/20 20:07 Dose: 200 mls/hr Documented by: Piperacillin Sod/Tazobactam (Sod 4.5 gm/ Sodium Chloride) 100 mls @ 200 mls/hr IV ONETIME ONE Stop: 12/27/20 21:58 Last Admin: 12/27/20 22:07 Dose: 200 mls/hr Documented by: Levofloxacin/Dextrose 750 mg/ (Premix) 150 mls @ 100 mls/hr IV Q24H [facility] Last Admin: 12/27/20 22:08 Dose: 100 mls/hr Documented by: Vancomycin HCl 1.5 gm/ Sodium (Chloride) 500 mls @ 250 mls/hr IV ONETIME ONE Stop: 12/27/20 23:59 Last Admin: 12/27/20 22:22 Dose: 250 mls/hr Documented by: Vancomycin HCl 0.75 gm/ Sodium (Chloride) 250 mls @ 250 mls/hr IV Q24H [facility] Lactated Ringer's (Ringers, Lactated) 500 mls @ 999 mls/hr IV .BOLUS ONE Stop: 12/28/20 02:40 Last Admin: 12/28/20 02:16 Dose: 999 mls/hr Documented by: Lactated Ringer's (Ringers, Lactated) 500 mls @ 999 mls/hr IV .BOLUS ONE Stop: 12/28/20 04:31 Last Admin: 12/28/20 04:11 Dose: 999 mls/hr Documented by: Lactated Ringer's (Ringers, Lactated) 1,000 mls @ 790 mls/hr IV .BOLUS ONE Stop: 12/28/20 05:22 Last Admin: 12/28/20 04:20 Dose: 790 mls/hr Documented by: Lactated Ringer's (Ringers, Lactated) 790 mls @ 790 mls/hr IV .BOLUS ONE Stop: 12/28/20 05:06 Last Admin: 12/28/20 05:08 Dose: Not Given Documented by: No Warfarin Dose (Needed Tonight) 0 each PO ONETIME ONE Stop: 12/27/20 22:31 Last Admin: 12/27/20 22:55 Dose: Not Given Documented by: Tbo-Filgrastim (Granix) 300 mcg SUBCUT DAILY KWADWO - Exam Quality Assessment: Supplemental Oxygen, Urine Catheter General: Obtunded HEENT: Pupils Equal Neck: Supple Lungs: Rales (Throughout but worse in the bases). No: Normal Respiratory Effort (Increased respiratory rate, effort, guppy breathing, use of accessory muscles including tracheal tugging and retractions. Respiratory rate in the upper 40s.) Cardiovascular: Tachycardia Extremities: Normal Inspection, Normal Range of Motion, Non-Tender, No Pedal Edema, Normal Capillary Refill Skin: Warm, Dry, Intact Psy/Mental Status: Alert, Normal Affect, Normal Mood Sepsis Event Note - Evaluation Sepsis Screening Result: Severe Sepsis Risk - Focused Exam Vital Signs: Vital Signs Temp Temp Pulse Resp BP BP BP 12/28/20 13:16 98.7 F 50 H 97/60 12/28/20 12:00 99.1 F 50 H 90/64 12/28/20 11:00 54 L 50 H 97/53 L 12/28/20 10:43 12/28/20 10:30 128 H 50 H 91/67 12/28/20 10:16 12/28/20 10:15 135 H 12/28/20 10:00 131 H 49 H 91/70 12/28/20 09:30 137 H 50 H 93/64 12/28/20 09:00 142 H 50 H 93/56 L 12/28/20 08:36 12/28/20 08:30 135 H 49 H 92/61 12/28/20 08:00 99.5 F 47 H 104/53 L 12/28/20 07:30 134 H 47 H 86/50 L 12/28/20 07:15 47 H 88/62 L 12/28/20 06:20 99.9 F 12/28/20 06:01 101.9 F H 132 H 45 H 12/28/20 06:00 124 H 45 H 87/61 L 12/28/20 05:59 131 H 44 H 12/28/20 05:52 12/28/20 05:49 136 H 45 H 92/61 12/28/20 05:48 137 H 45 H 12/28/20 05:45 132 H 44 H 83/59 L 12/28/20 05:44 132 H 45 H 12/28/20 05:30 130 H 43 H 92/65 12/28/20 05:29 126 H 44 H 12/28/20 05:15 129 H 43 H 95/55 L 12/28/20 05:14 139 H 43 H 12/28/20 05:01 137 H 44 H 12/28/20 05:00 140 H 43 H 89/68 L 12/28/20 04:59 131 H 44 H 12/28/20 04:45 132 H 38 H 94/62 12/28/20 04:44 132 H 44 H 12/28/20 04:31 133 H 44 H 92/68 12/28/20 04:30 137 H 44 H 12/28/20 04:15 43 H 85/57 L 12/28/20 04:14 43 H 12/28/20 04:01 41 H 12/28/20 04:00 98.9 F 42 H 85/58 L 85/58 L 12/28/20 03:59 42 H 12/28/20 03:46 42 H 89/62 L 12/28/20 03:45 42 H 12/28/20 03:30 41 H 97/61 12/28/20 03:29 41 H 12/28/20 03:15 41 H 86/66 L 12/28/20 03:14 40 H 12/28/20 03:01 41 H 12/28/20 03:00 33 H 87/60 L 12/28/20 02:59 40 H 12/28/20 02:54 12/28/20 02:46 41 H 96/48 L 12/28/20 02:45 41 H 12/28/20 02:31 33 H 88/66 L 12/28/20 02:30 42 H 12/28/20 02:16 38 H 94/56 L 12/28/20 02:15 37 H 12/28/20 02:07 99.9 F 12/28/20 02:01 43 H 96/56 L 12/28/20 02:00 38 H Pulse Ox Pulse Ox 12/28/20 13:16 93 L 12/28/20 12:00 94 L 12/28/20 11:00 88 L 12/28/20 10:43 89 L 12/28/20 10:30 93 L 12/28/20 10:16 97 12/28/20 10:15 12/28/20 10:00 98 12/28/20 09:30 97 12/28/20 09:00 96 12/28/20 08:36 97 12/28/20 08:30 97 12/28/20 08:00 99 12/28/20 07:30 96 12/28/20 07:15 12/28/20 06:20 12/28/20 06:01 95 12/28/20 06:00 95 12/28/20 05:59 96 12/28/20 05:52 94 L 12/28/20 05:49 94 L 12/28/20 05:48 94 L 12/28/20 05:45 94 L 12/28/20 05:44 93 L 12/28/20 05:30 94 L 12/28/20 05:29 95 12/28/20 05:15 94 L 12/28/20 05:14 94 L 12/28/20 05:01 93 L 12/28/20 05:00 93 L 12/28/20 04:59 93 L 12/28/20 04:45 94 L 12/28/20 04:44 94 L 12/28/20 04:31 94 L 12/28/20 04:30 94 L 12/28/20 04:15 12/28/20 04:14 12/28/20 04:01 12/28/20 04:00 93 L 12/28/20 03:59 12/28/20 03:46 12/28/20 03:45 12/28/20 03:30 12/28/20 03:29 12/28/20 03:15 12/28/20 03:14 12/28/20 03:01 12/28/20 03:00 12/28/20 02:59 12/28/20 02:54 94 L 12/28/20 02:46 12/28/20 02:45 12/28/20 02:31 12/28/20 02:30 12/28/20 02:16 12/28/20 02:15 12/28/20 02:07 12/28/20 02:01 12/28/20 02:00 - Problem List & Annotations (1) Neutropenic fever SNOMED Code(s): 046970365 Code(s): D70.9 - NEUTROPENIA, UNSPECIFIED; R50.81 - FEVER PRESENTING WITH CONDITIONS CLASSIFIED ELSEWHERE Status: Acute Current Visit: Yes (2) Hospital-acquired pneumonia SNOMED Code(s): 182056180 Code(s): J18.9 - PNEUMONIA, UNSPECIFIED ORGANISM; Y95 - NOSOCOMIAL CONDITION Status: Acute Current Visit: Yes (3) Diverticulitis SNOMED Code(s): 528499432 Code(s): K57.92 - DVTRCLI OF INTEST, PART UNSP, W/O PERF OR ABSCESS W/O BLEED Status: Acute Current Visit: Yes (4) Congestive heart failure SNOMED Code(s): [id number] Code(s): I50.9 - HEART FAILURE, UNSPECIFIED Status: Acute Current Visit: No Qualifiers: Heart failure type: unspecified Heart failure chronicity: acute on chronic Qualified Code(s): I50.9 - Heart failure, unspecified (5) Elevated troponin SNOMED Code(s): 031473098, [id number], [id number] Code(s): R77.8 - OTHER SPECIFIED ABNORMALITIES OF PLASMA PROTEINS Status: Acute Priority: High Current Visit: No (6) Generalized weakness SNOMED Code(s): 38228144 Code(s): R53.1 - WEAKNESS Status: Acute Priority: High Current Visit: No (7) Severe neutropenia SNOMED Code(s): 333911706 Code(s): D70.9 - NEUTROPENIA, UNSPECIFIED Status: Acute Priority: High Current Visit: No (8) Supratherapeutic INR SNOMED Code(s): 728484975 Code(s): R79.1 - ABNORMAL COAGULATION PROFILE Status: Acute Current Visit: No (9) Atrial fibrillation SNOMED Code(s): 96891433 Code(s): I48.91 - UNSPECIFIED ATRIAL FIBRILLATION Status: Chronic Priority: Medium Current Visit: No Qualifiers: Atrial fibrillation type: paroxysmal Qualified Code(s): I48.0 - Paroxysmal atrial fibrillation (10) Prostate cancer metastatic to bone SNOMED Code(s): 222726238 Code(s): C61 - MALIGNANT NEOPLASM OF PROSTATE; C79.51 - SECONDARY MALIGNANT NEOPLASM OF BONE Status: Acute Current Visit: Yes - Problem List Review Problem List Initiated/Reviewed/Updated: Yes - My Orders Last 24 Hours: My Active Orders 12/27/20 21:25 Up With Assistance [RC] ASDIRECTED Vital Signs [RC] Q4HR Consult to Health And Safety Coordinator [CONS] Routine Acetaminophen [TylenoL] 650 mg PO Q4H PRN Ondansetron [Zofran] 4 mg IV Q4H PRN oxyCODONE 5 mg PO Q4H PRN 12/27/20 21:26 Oxygen Therapy [RC] .PRN VTE/DVT Education [RC] BID 12/27/20 21:30 Pharmacy to Dose - Vancomycin 1 dose .XX ASDIRECTED PRN Pharmacy to Dose - Warfarin 1 dose .XX ASDIRECTED PRN Piperacillin/Tazobactam [Piperacil-Tazobact] 4.5 gm Sodium Chloride 0.9% [Normal Saline] 100 ml IV Q8H 12/27/20 21:37 RT Chest Physiotherapy [RC] .PRN RT Incentive Spirometry [RC] .PRN CULTURE SPUTUM + SMEAR [RM] Routine 12/27/20 21:59 RT BiPAP/CPAP [RC] ASDIRECTED 12/27/20 22:36 Urinary Catheter Assessment [RC] Q4HR 12/27/20 22:45 Insert Arroyo Catheter [Insert Urinary Catheter] [OM.PC] Q24H 12/27/20 23:52 LORazepam [Ativan] 0.5 mg IVPUSH Q1H PRN 12/27/20 23:53 Code Status [Resuscitation Status] Routine 12/28/20 01:29 Acetaminophen [Tylenol] 650 mg RECTAL Q4H PRN 12/28/20 Breakfast Regular Diet [DIET] 12/28/20 07:09 METH-RESIST S.AUR,MRSA BY PCR [MOLEC] Stat 12/28/20 09:00 Tbo-Filgrastim [Granix] 300 mcg SUBCUT DAILY 12/28/20 10:00 Digoxin [Lanoxin] 250 mcg IVPUSH Q6H Sodium Chloride 0.9% [Normal Saline] 1,000 ml IV ASDIRECTED 12/28/20 10:44 Communication Order [RC] 12/28/20 18:00 Warfarin [Coumadin] 2 mg PO QPM 12/28/20 23:00 Vancomycin [Vancocin] 1 gm Sodium Chloride 0.9% [Normal Saline (AdvBag)] 250 ml IV Q24H 12/29/20 05:11 INR,PT,PROTHROMBIN TIME [COAG] AM 12/29/20 19:00 Levofloxacin/Dextrose 5%-Water [Levaquin in D5W 750 MG/150 ML] 750 mg Premix Bag 1 bag IV Q48H 12/29/20 22:00 VANCOMYCIN TROUGH [CHEM] Timed 12/30/20 05:11 INR,PT,PROTHROMBIN TIME [COAG] AM 12/31/20 05:11 INR,PT,PROTHROMBIN TIME [COAG] AM 01/01/21 05:11 INR,PT,PROTHROMBIN TIME [COAG] AM 01/02/21 05:11 INR,PT,PROTHROMBIN TIME [COAG] AM 01/03/21 05:11 INR,PT,PROTHROMBIN TIME [COAG] AM - Plan Plan:: Assessment December 27, 2020 75-year-old male with history of metastatic prostate cancer recently treated for diverticulitis and neutropenia presents to the emergency department and is admitted to the ICU secondary to severe sepsis due to pneumonia. History of atrial fibrillation, CHF, COPD, anemia, hypertension, hyperlipidemia, biologic aortic and mitral valve replacement in 2013, anticoagulated with warfarin for A. fib Severe sepsis Respiratory failure Pneumonia Recent diverticulitis with persistent left lower quadrant tenderness COPD Severe neutropenia * 9 L of O2 via oxygen mask in the ER * Received Rocephin 2 g * WBC 0.34 with ANC of 95 * CRP 21 * Lactic acid 0.9 * Severe tachypnea * ABG with mixed metabolic and respiratory alkalosis and hypoxemia on 4 L via nasal cannula Exacerbation of congestive heart failure Atrial fibrillation with rapid ventricular response * proBNP 4900 * Heart rate Ranging from low 100s to 120s. Likely worsened due to sepsis. * Blood pressure is borderline low, therefore treating heart rate with either beta-rebeka or calcium channel rebeka would worsen his blood pressure and possibly throw him into shock * His states he did take his metoprolol this morning * Troponin slightly elevated at 0.059 likely secondary to strain December 28, 2020 Severe sepsis, respiratory failure, pneumonia, COPD, severe neutropenia, prostate cancer, atrial fibrillation with rapid ventricular response and exacerbation of CHF. Acute kidney injury Tyson has severe multisystem failure with severe respiratory failure. Respiratory rate is in the upper 40s for the last several hours and after several conversations with the family they have agreed to give him some morphine to help with air hunger and hopefully improve his ventilation by lowering his respiratory rate and improving air exchange. He also continues to be tachycardic likely secondary to sepsis, atrial fibrillation, metabolic work. Digoxin has been started with moderate improvement but we are still in the loading dose phase. He is on BiPAP 35% at 18/8 and saturations are staying in the low 90s. * BiPAP 18/8 at 35% * ABG: pH 7.28, PCO2 60, PO2 71, bicarb 27.2. We will allow permissive hypercapnia with some acidemia. * Patient's respiratory rate is concerning for fatigue and ultimately cardiopulmonary collapse * Absolute neutrophil count of 140 with WBC of 0.32, hemoglobin 8.0, platelets of 215. * If hemoglobin drops below 8.0 patient would qualify for blood transfusion sec ondary to having an active cardiac illness. * C-reactive protein increased to 24 * Troponin increased to 0.121 * Creatinine increased to 1.4 with estimated GFR of 49 * Lactic acid 1.0 Plan * ICU * Reverse isolation secondary to neutropenia * BiPAP Adjust as necessary * Continue vancomycin, Zosyn, Levaquin * Warfarin, pharmacy to dose, but patient unable to take warfarin today. If his INR drops below 2 will need to anticoagulate * Strict I's and O's and daily weights * Arroyo for critically ill needing every hour to 2-hour urine output * Hold diuretics secondary to low blood pressure * Start normal saline at 125 mL an hour * Discussed use of morphine to help with tachypnea and dyspnea. Family agreed. We will be very cautious on amount of morphine. * VTE prophylaxis with warfarin * I had a long discussion with him, his sons, and his regards to CODE STATUS. Patient is now DNR/DNI. * Patient has a very poor prognosis. His respiratory rate cannot be sustained in the 40s. Family understands that if we are unable to control his heart rate and respiratory rate he will likely succumb to his illness.
[2020-12-28] MEDS: Sodium Chloride 0.9% 1,000 ML IV SCH ×2 (16:16→20:26)
[2020-12-28] MEDS ORDERED: Morphine 2 MG/ML SYRINGE IVPUSH ONE ×2 (20:11→21:00)
[2020-12-28] MEDS ORDERED: Morphine 2 MG/ML SYRINGE IVPUSH PRN (22:28)
[2020-12-29] MEDS ORDERED: Sodium Chloride 0.9% 500 ML IV ONE (02:26)
[2020-12-29] MEDS: Piperacillin/Tazobactam 4.5 GM in Sodium Chloride 0.9% 100 ML IV SCH (06:07)
[2020-12-29] MEDS: Sodium Chloride 0.9% 1,000 ML IV SCH (09:25)
[2020-12-29] MEDS ORDERED: Morphine 2 MG/ML SYRINGE IVPUSH ONE (09:43)
[2020-12-29] MEDS ORDERED: Morphine 2 MG/ML SYRINGE IVPUSH PRN (10:38)
--- NOTE | 2020-12-29 11:16 | PCM.DCSUM1 ---
Discharge Summary - Hospital Course HPI Initial Comments: 75-year-old male with metastatic prostate cancer presented to the emergency department with complaints of fatigue, shortness of breath, abdominal pain, weakness, and loss of appetite. Patient was discharged from our hospital on December 06, 2020 after being admitted with diverticulitis and severe neutropenia. Patient was discharged on ciprofloxacin and Flagyl. According to his he was doing better until he received chemotherapy on December 23. He became increasingly weak over the next few days. On presentation he was feverish with a temperature of 100 F, tachycardic, and tachypneic. He was found to be hypoxemic with SPO2 of 85% on 3 L. Patient was on 3 L when discharged, but EMS found him to be at 68% when they arrived at the home. CT scan of the abdomen and pelvis done last hospitalization showed findings compatible with mild diverticulitis. Findings compatible with osseous metastatic disease. Retroperitoneal adenopathy was seen with adenopathy continuing along the left iliac chain. Slightly prominent lymph node within the left inguinal region was seen. These are most likely metastatic. Bladder wall thickening with bladder diverticulum. CT angiogram of the chest was negative for pulmonary embolism, but did show mild mediastinal adenopathy. Several slightly prominent lymph nodes within the upper retroperitoneum at the diaphragmatic margin was seen. Diffuse osteosclerotic metastatic changes seen through the osseous structure. Emphysematous change. These 2 scans are very consistent with metastatic prostate cancer. In the emergency department he was found to be severely neutropenic again with a white count of 0.34 and absolute neutrophil count of 95. Patient is on warfarin for his atrial fibrillation and his INR was 3.09. proBNP was 4899 and his C- reactive protein was 21.0. Fortunately his lactic acid was 0.9. Troponin I was slightly elevated at 0.059. In the emergency department I discussed with him and his his very poor prognosis both in the short-term and long-term. At that time patient requested to be a full code although his was not sure he understood what that meant. Assessment 75-year-old male with history of metastatic prostate cancer recently treated for diverticulitis and neutropenia presents to the emergency department and is admitted to the ICU secondary to severe sepsis due to pneumonia. History of atrial fibrillation, CHF, COPD, anemia, hypertension, hyperlipidemia, biologic aortic and mitral valve replacement in 2013, anticoagulated with warfarin for A. fib Severe sepsis Respiratory failure Pneumonia Recent diverticulitis with persistent left lower quadrant tenderness COPD Severe neutropenia * 9 L of O2 via oxygen mask in the ER * Received Rocephin 2 g * WBC 0.34 with ANC of 95 * CRP 21 * Lactic acid 0.9 * Severe tachypnea * ABG with mixed metabolic and respiratory alkalosis and hypoxemia on 4 L via nasal cannula Exacerbation of congestive heart failure Atrial fibrillation with rapid ventricular response * proBNP 4900 * Heart rate Ranging from low 100s to 120s. Likely worsened due to sepsis. * Blood pressure is borderline low, therefore treating heart rate with either beta-rebeka or calcium channel rebeka would worsen his blood pressure and possibly throw him into shock * His states he did take his metoprolol this morning * Troponin slightly elevated at 0.059 likely secondary to strain Plan * Admit patient to the ICU * Reverse isolation secondary to neutropenia * Place him on BiPAP with 14/7 settings at 50% FiO2. Adjust as necessary * Broaden antibiotic coverage to include healthcare associated pneumonia: Vancomycin, Zosyn, Levaquin. This will also cover any diverticulitis if that is a contributing factor. * Warfarin, pharmacy to dose * Strict I's and O's and daily weights * Arroyo for critically ill needing every hour to 2-hour urine output * Lasix 40 mg IV x1 * Follow fluid status closely and if necessary we will then bolus IV fluid * ABG 30 minutes after BiPAP * VTE prophylaxis with warfarin * I had a long discussion with him and his regards to CODE STATUS. Patient currently wants to be full code. - Mortality Measure Prognosis:: Poor - Discharge Data Discharge Date: 12/29/20 Discharge Disposition: Home, Self-Care 01 Condition: Good - Referral to Home Health Primary Care Physician: Heather Mchugh NP - Discharge Diagnosis/Problem(s) (1) Neutropenic fever SNOMED Code(s): 008334278 ICD Code: D70.9 - NEUTROPENIA, UNSPECIFIED; R50.81 - FEVER PRESENTING WITH CONDITIONS CLASSIFIED ELSEWHERE Status: Acute Current Visit: Yes (2) Hospital-acquired pneumonia SNOMED Code(s): 443415506 ICD Code: J18.9 - PNEUMONIA, UNSPECIFIED ORGANISM; Y95 - NOSOCOMIAL CONDITION Status: Acute Current Visit: Yes (3) Diverticulitis SNOMED Code(s): 536061057 ICD Code: K57.92 - DVTRCLI OF INTEST, PART UNSP, W/O PERF OR ABSCESS W/O BLEED Status: Acute Current Visit: Yes (4) Congestive heart failure SNOMED Code(s): 19950669 ICD Code: I50.9 - HEART FAILURE, UNSPECIFIED Status: Acute Current Visit: No Qualifiers: Heart failure type: unspecified Heart failure chronicity: acute on chronic Qualified Code(s): I50.9 - Heart failure, unspecified (5) Elevated troponin SNOMED Code(s): 980821869, 033541392, 326711849 ICD Code: R77.8 - OTHER SPECIFIED ABNORMALITIES OF PLASMA PROTEINS Status: Acute Priority: High Current Visit: No (6) Generalized weakness SNOMED Code(s): 49605559 ICD Code: R53.1 - WEAKNESS Status: Acute Priority: High Current Visit: No (7) Severe neutropenia SNOMED Code(s): 368352865 ICD Code: D70.9 - NEUTROPENIA, UNSPECIFIED Status: Acute Priority: High Current Visit: No (8) Supratherapeutic INR SNOMED Code(s): 814136005 ICD Code: R79.1 - ABNORMAL COAGULATION PROFILE Status: Acute Current Visit: No (9) Atrial fibrillation SNOMED Code(s): 56420830 ICD Code: I48.91 - UNSPECIFIED ATRIAL FIBRILLATION Status: Chronic Priority: Medium Current Visit: No Qualifiers: Atrial fibrillation type: paroxysmal Qualified Code(s): I48.0 - Paroxysmal atrial fibrillation (10) Prostate cancer metastatic to bone SNOMED Code(s): 260552703 ICD Code: C61 - MALIGNANT NEOPLASM OF PROSTATE; C79.51 - SECONDARY MALIGNANT NEOPLASM OF BONE Status: Acute Current Visit: Yes - Patient Summary/Data Consults: Consultations 12/27/20 21:25 Consult to Rfid Manager [CONS] Routine Hospital Course: Patient continues to be on BiPAP. He is unable to be removed off of the BiPAP for more than a few seconds without having severe desaturations. Patient also continues to have severe respiratory failure with respiratory rate in the upper 40s to 50s. Patient is poorly ventilating, therefore PCO2 has been increasing even with the increased respiratory rate. We increased her settings on her IPAP in hopes to improve her PCO2. He had some improvement, but still is acidotic. Tyson received 1 mg of Ativan last night and he was barely arousable and tell midmorning. He did start opening his eyes and now does respond but because of the BiPAP it is impossible to know if he understands. Patient was unable to ta ke Coumadin today. Tyson was also unable to take his metoprolol so he was started on IV digoxin 250 mcg every 6 hours x3 doses. Assessment December 27, 2020 75-year-old male with history of metastatic prostate cancer recently treated for diverticulitis and neutropenia presents to the emergency department and is admitted to the ICU secondary to severe sepsis due to pneumonia. History of atrial fibrillation, CHF, COPD, anemia, hypertension, hyperlipidemia, biologic aortic and mitral valve replacement in 2013, anticoagulated with warfarin for A. fib Severe sepsis Respiratory failure Pneumonia Recent diverticulitis with persistent left lower quadrant tenderness COPD Severe neutropenia * 9 L of O2 via oxygen mask in the ER * Received Rocephin 2 g * WBC 0.34 with ANC of 95 * CRP 21 * Lactic acid 0.9 * Severe tachypnea * ABG with mixed metabolic and respiratory alkalosis and hypoxemia on 4 L via nasal cannula Exacerbation of congestive heart failure Atrial fibrillation with rapid ventricular response * proBNP 4900 * Heart rate Ranging from low 100s to 120s. Likely worsened due to sepsis. * Blood pressure is borderline low, therefore treating heart rate with either beta-rebeka or calcium channel rebeka would worsen his blood pressure and possibly throw him into shock * His states he did take his metoprolol this morning * Troponin slightly elevated at 0.059 likely secondary to strain December 28, 2020 Severe sepsis, respiratory failure, pneumonia, COPD, severe neutropenia, prostate cancer, atrial fibrillation with rapid ventricular response and exacerbation of CHF. Acute kidney injury Tyson has severe multisystem failure with severe respiratory failure. Respiratory rate is in the upper 40s for the last several hours and after several conversations with the family they have agreed to give him some morphine to help with air hunger and hopefully improve his ventilation by lowering his respiratory rate and improving air exchange. He also continues to be tachycardic likely secondary to sepsis, atrial fibrillation, metabolic work. Digoxin has been started with moderate improvement but we are still in the loading dose phase. He is on BiPAP 35% at 18/8 and saturations are staying in the low 90s. * BiPAP 18/8 at 35% * ABG: pH 7.28, PCO2 60, PO2 71, bicarb 27.2. We will allow permissive hypercapnia with some acidemia. * Patient's respiratory rate is concerning for fatigue and ultimately cardiopulmonary collapse * Absolute neutrophil count of 140 with WBC of 0.32, hemoglobin 8.0, platelets of 215. * If hemoglobin drops below 8.0 patient would qualify for blood transfusion secondary to having an active cardiac illness. * C-reactive protein increased to 24 * Troponin increased to 0.121 * Creatinine increased to 1.4 with estimated GFR of 49 * Lactic acid 1.0 Plan * ICU * Reverse isolation secondary to neutropenia * BiPAP Adjust as necessary * Continue vancomycin, Zosyn, Levaquin * Warfarin, pharmacy to dose, but patient unable to take warfarin today. If his INR drops below 2 will need to anticoagulate * Strict I's and O's and daily weights * Arroyo for critically ill needing every hour to 2-hour urine output * Hold diuretics secondary to low blood pressure * Start normal saline at 125 mL an hour * Discussed use of morphine to help with tachypnea and dyspnea. Family agreed. We will be very cautious on amount of morphine. * VTE prophylaxis with warfarin * I had a long discussion with him, his sons, and his regards to CODE STATUS. Patient is now DNR/DNI. * Patient has a very poor prognosis. His respiratory rate cannot be sustained in the 40s. Family understands that if we are unable to control his heart rate and respiratory rate he will likely succumb to his illness. December 29, 2019 Patient's blood pressure dropped overnight. Adjustments were made to BiPAP in hopes that a lower EPAP would improve blood pressure but it did not. Patient became mottled and family asked me to keep him comfortable and remove BiPAP. Patient was given 2 mg of morphine to help prevent air hunger, kept comfortable with family at his side, and BiPAP was removed. Patient approximately 1 hour later at 1040 hrs. - Discharge Plan Home Medications: Home Meds Albuterol Sulfate [Albuterol Sulfate HFA] 2 puff IH Q6H PRN 05/21/14 [History] Aspirin [Adult Low Dose Aspirin EC] 81 mg PO DAILY 05/21/14 [History] Budesonide/Formoterol [Symbicort 160-4.5 MCG] 2 puff INH BID 05/21/14 [History] Furosemide [Lasix] 40 mg PO DAILY 05/21/14 [History] Metoprolol Succinate [Toprol XL] 100 mg PO DAILY 05/21/14 [History] Potassium Chloride [Klor-Con M20] 20 meq PO BID 05/21/14 [History] Tiotropium [Spiriva Handihaler] 18 mcg INH DAILY 05/21/14 [History] Fish Oil/DHA/EPA [Fish Oil 1,200 MG] 1,200 mg PO DAILY 01/20/18 [History] Flaxseed Oil [Flaxseed] 1,000 mg PO DAILY 01/20/18 [History] Magnesium 400 mg PO DAILY 01/20/18 [History] Ubidecarenone [Coenzyme Q10] 10 mg PO DAILY 01/20/18 [History] Pravastatin [Pravachol] 80 mg PO DAILY 09/08/18 [History] Bicalutamide [Casodex] 50 mg PO DAILY 12/02/20 [History] Calcium Carbonate/Vitamin D3 [Calcium 500-Vit D3 200 Tablet] 1 tab PO BIDMEALS 12/02/20 [History] Diphenhyd/Lidocaine/Nystatin [Magic Mouthwash] 15 ml PO TID PRN 12/02/20 [History] Hydrocodone/Acetaminophen [Hydrocodone-Acetamin 7.5-325] 1 tab PO Q6HR PRN 12/02/20 [History] Lidocaine/Prilocaine [Lido-Prilo Vinod Pack] 1 applic TOP ASDIRECTED PRN 12/02/20 [History] Loperamide HCl [Loperamide] 2 tab PO ASDIRECTED PRN 12/02/20 [History] Multivitamin [Multi-Vitamin Daily] 1 tab PO DAILY 12/02/20 [History] Prochlorperazine [Compazine] 10 mg PO QID PRN 12/02/20 [History] Sennosides/Docusate Sodium [Senna Plus 8.6-50 mg Tablet] 1 tab PO BID 12/02/20 [History] Simethicone 80 mg PO Q2H PRN 12/02/20 [History] predniSONE [Prednisone] 5 mg PO BIDMEALS 12/02/20 [History] traMADol [Ultram] 50 - 100 mg PO Q4H PRN 12/02/20 [History] Ciprofloxacin HCl [Cipro] 500 mg PO Q12HR #13 tablet 12/06/20 [Rx] Warfarin [Coumadin] 3 mg PO DAILY #30 tab 12/06/20 [Rx] metroNIDAZOLE [Metronidazole] 500 mg PO Q8HR #19 tablet 12/06/20 [Rx] Patient Handouts: Diverticulitis, Sepsis, Diagnosis, Adult, Community-Acquired Pneumonia, Adult Forms: ED Department Discharge Referrals: PCP,None [Ordering Only Provider] - - Discharge Summary/Plan Comment DC Time >30 min.: No - General Info Date of Service: 12/29/20 - Review of Systems Pulmonary: Reports: Other (No breath sounds or cardiac sounds. Eyes were fixed and nonresponsive.) - Patient Data Vitals - Most Recent: Last Vital Signs Temp 97.8 F 12/29/20 08:00 Pulse 102 H 12/29/20 03:59 Resp 43 H 12/29/20 08:00 BP 75/51 L 12/29/20 08:00 Pulse Ox 100 12/29/20 08:01 Weight - Most Recent: 136 lb 12.8 oz I&O - Last 24 hours: Intake & Output 12/28/20 12/29/20 12/29/20 22:59 06:59 14:59 Intake Total 100 2368 Output Total 162 25 30 Balance -62 2343 -30 Lab Results - Last 24 hrs: Laboratory Results - last 24 hr 12/28/20 12/28/20 12/29/20 Range/Units 11:45 15:30 07:27 WBC (4.23-9.07) K/mm3 RBC (4.63-6.08) M/mm3 Hgb (13.7-17.5) gm/dl Hct (40.1-51.0) % MCV (79.0-92.2) fl MCH (25.7-32.2) pg MCHC (32.2-35.5) g/dl RDW Std Deviation (35.1-43.9) fL Plt Count (163-337) K/mm3 MPV (9.4-12.3) fl Neut % (Auto) (34.0-67.9) % Lymph % (Auto) (21.8-53.1) % Wetzel % (Auto) (5.3-12.2) % Eos % (Auto) (0.8-7.0) Baso % (Auto) (0.1-1.2) % Neut # (Auto) (1.78-5.38) K/mm3 Lymph # (Auto) (1.32-3.57) K/mm3 Wetzel # (Auto) (0.30-0.82) K/mm3 Eos # (Auto) (0.04-0.54) K/mm3 Baso # (Auto) (0.01-0.08) K/mm3 Manual Slide Review PT 49.4 H D (9.7-12.0) SECONDS INR 4.76 Puncture Site Lt radial ABG pH 7.28 L (7.35-7.45) ABG pCO2 59.9 H (35.0-45.0) mmHg ABG pO2 71.0 L (80.0-100.0) mmHg ABG HCO3 27.2 H (22.0-26.0) meq/L ABG O2 Saturation 92.8 L (96.0-97.0) % ABG Base Excess 0.6 (-2-2.0) Jose David Test Positive A-a Gradient 140 mmHg O2 Delivery Device Bipap Oxygen Flow Rate 0.0 FiO2 40.00 (21.00-100.00) % Blood Gas Comments Bipap 18/8 Sodium (136-145) mEq/L Potassium (3.5-5.1) mEq/L Chloride (98-107) mEq/L Carbon Dioxide (21-32) mEq/L Anion Gap (5-15) BUN (7-18) mg/dL Creatinine (0.7-1.3) mg/dL Est Cr Clr Drug Dosing mL/min Estimated GFR (MDRD) (>60) mL/min BUN/Creatinine Ratio (14-18) Glucose (83-115) mg/dL Calcium (8.5-10.1) mg/dL Phosphorus (2.6-4.7) mg/dL Magnesium (1.8-2.4) mg/dl Total Bilirubin (0.2-1.0) mg/dL AST (15-37) U/L ALT (16-63) U/L Alkaline Phosphatase (46-116) U/L C-Reactive Protein (<1.0) mg/dL Total Protein (6.4-8.2) g/dl Albumin (3.4-5.0) g/dl Globulin gm/dL Albumin/Globulin Ratio (1-2) MRSA (PCR) Negative 12/29/20 12/29/20 Range/Units 07:27 07:27 WBC 1.06 L* (4.23-9.07) K/mm3 RBC 2.59 L (4.63-6.08) M/mm3 Hgb 7.5 L (13.7-17.5) gm/dl Hct 25.0 L (40.1-51.0) % MCV 96.5 H D (79.0-92.2) fl MCH 29.0 (25.7-32.2) pg MCHC 30.0 L (32.2-35.5) g/dl RDW Std Deviation 61.3 H (35.1-43.9) fL Plt Count 251 (163-337) K/mm3 MPV 9.6 (9.4-12.3) fl Neut % (Auto) 34.9 (34.0-67.9) % Lymph % (Auto) 20.8 L (21.8-53.1) % Wetzel % (Auto) 32.1 H (5.3-12.2) % Eos % (Auto) 0 L (0.8-7.0) Baso % (Auto) 0.9 (0.1-1.2) % Neut # (Auto) 0.37 L (1.78-5.38) K/mm3 Lymph # (Auto) 0.22 L (1.32-3.57) K/mm3 Wetzel # (Auto) 0.34 (0.30-0.82) K/mm3 Eos # (Auto) 0.00 L (0.04-0.54) K/mm3 Baso # (Auto) 0.01 (0.01-0.08) K/mm3 Manual Slide Review Abnormal smear PT (9.7-12.0) SECONDS INR Puncture Site ABG pH (7.35-7.45) ABG pCO2 (35.0-45.0) mmHg ABG pO2 (80.0-100.0) mmHg ABG HCO3 (22.0-26.0) meq/L ABG O2 Saturation (96.0-97.0) % ABG Base Excess (-2-2.0) Jose David Test A-a Gradient mmHg O2 Delivery Device Oxygen Flow Rate FiO2 (21.00-100.00) % Blood Gas Comments Sodium 144 (136-145) mEq/L Potassium 5.3 H (3.5-5.1) mEq/L Chloride 106 (98-107) mEq/L Carbon Dioxide 21 D (21-32) mEq/L Anion Gap 22.3 H (5-15) BUN 58 H (7-18) mg/dL Creatinine 3.4 H D (0.7-1.3) mg/dL Est Cr Clr Drug Dosing 15.80 mL/min Estimated GFR (MDRD) 18 (>60) mL/min BUN/Creatinine Ratio 17.1 (14-18) Glucose 101 (83-115) mg/dL Calcium 5.9 L (8.5-10.1) mg/dL Phosphorus 6.9 H (2.6-4.7) mg/dL Magnesium 2.2 (1.8-2.4) mg/dl Total Bilirubin 0.9 (0.2-1.0) mg/dL AST 556 H (15-37) U/L ALT 308 H (16-63) U/L Alkaline Phosphatase 83 (46-116) U/L C-Reactive Protein 45.5 H* (<1.0) mg/dL Total Protein 5.9 L (6.4-8.2) g/dl Albumin 1.7 L (3.4-5.0) g/dl Globulin 4.2 gm/dL Albumin/Globulin Ratio 0.4 L (1-2) MRSA (PCR) CLAUDIO Results - Last 24 hrs: Microbiology 12/27/20 19:09 Aerobic Blood Culture - Preliminary Blood - Venous - Lab Draw NO GROWTH AFTER 1 DAY Anaerobic Blood Culture - Preliminary NO GROWTH AFTER 1 DAY 12/27/20 18:56 Aerobic Blood Culture - Preliminary Blood - Venous NO GROWTH AFTER 1 DAY Anaerobic Blood Culture - Preliminary NO GROWTH AFTER 1 DAY Med Orders - Current: Current Medications Acetaminophen (Tylenol) 650 mg PO Q4H PRN PRN Reason: Pain (Mild 1-3)/fever Acetaminophen (Tylenol) 650 mg RECTAL Q4H PRN PRN Reason: Fever Last Admin: 12/28/20 06:01 Dose: 650 mg Documented by: Vancomycin HCl 1 gm/ Sodium (Chloride) 250 mls @ 250 mls/hr IV Q24H COUNT INCLUDES THE [facility] Last Admin: 12/28/20 22:16 Dose: 250 mls/hr Documented by: Sodium Chloride (Normal Saline) 1,000 mls @ 125 mls/hr IV ASDIRECTED COUNT INCLUDES THE [facility] Last Admin: 12/29/20 09:25 Dose: 999 mls/hr Documented by: Piperacillin Sod/Tazobactam (Sod 4.5 gm/ Sodium Chloride) 100 mls @ 25 mls/hr IV Q12H COUNT INCLUDES THE [facility] Levofloxacin/Dextrose 500 mg/ (Premix) 100 mls @ 100 mls/hr IV Q48H COUNT INCLUDES THE [facility] Lorazepam (Ativan) 0.5 mg IVPUSH Q1H PRN PRN Reason: Anxiety Last Admin: 12/28/20 00:04 Dose: 0.5 mg Documented by: Morphine Sulfate (Morphine) 1 mg IVPUSH Q1H PRN PRN Reason: Dyspnea Morphine Sulfate (Morphine) 2 mg IVPUSH Q1H PRN PRN Reason: Dyspnea Ondansetron HCl (Zofran) 4 mg IV Q4H PRN PRN Reason: Nausea/Vomiting Oxycodone HCl (Oxycodone) 5 mg PO Q4H PRN PRN Reason: Pain (moderate 4-6) Sodium Chloride (Saline Flush) 10 ml FLUSH ASDIRECTED PRN PRN Reason: Keep Vein Open Last Admin: 12/27/20 18:59 Dose: 10 ml Documented by: Tbo-Filgrastim (Granix) 300 mcg SUBCUT DAILY COUNT INCLUDES THE [facility] Last Admin: 12/29/20 09:29 Dose: 300 mcg Documented by: Vancomycin HCl (Pharmacy To Dose - Vancomycin) 1 dose .XX ASDIRECTED PRN PRN Reason: RX TO DOSE VANCO Warfarin Sodium (Pharmacy To Dose - Warfarin) 1 dose .XX ASDIRECTED PRN PRN Reason: RX TO DOSE WARFARIN Warfarin Sodium (Coumadin Sliding Scale) 0 each PO QPM COUNT INCLUDES THE [facility] Stop: 12/29/20 18:01 Discontinued Medications Digoxin (Lanoxin) 250 mcg IVPUSH Q6H COUNT INCLUDES THE [facility] Stop: 12/28/20 22:01 Last Admin: 12/28/20 22:08 Dose: 250 mcg Documented by: Furosemide (Lasix) 40 mg IVPUSH NOW ONE Stop: 12/27/20 21:32 Last Admin: 12/27/20 22:07 Dose: 40 mg Documented by: Sodium Chloride (Normal Saline) 1,000 mls @ 100 mls/hr IV NOW STA Stop: 12/28/20 04:24 Last Admin: 12/27/20 21:34 Dose: Not Given Documented by: Sodium Chloride (Normal Saline) 500 mls @ 999 mls/hr IV NOW STA Stop: 12/27/20 18:55 Last Admin: 12/27/20 18:59 Dose: 999 mls/hr Documented by: Ceftriaxone Sodium 1 gm/ (Sodium Chloride) 100 mls @ 200 mls/hr IV ONETIME ONE Stop: 12/27/20 20:04 Last Admin: 12/27/20 20:07 Dose: 200 mls/hr Documented by: Piperacillin Sod/Tazobactam (Sod 4.5 gm/ Sodium Chloride) 100 mls @ 200 mls/hr IV ONETIME ONE Stop: 12/27/20 21:58 Last Admin: 12/27/20 22:07 Dose: 200 mls/hr Documented by: Piperacillin Sod/Tazobactam (Sod 4.5 gm/ Sodium Chloride) 100 mls @ 25 mls/hr IV Q8H COUNT INCLUDES THE [facility] Last Admin: 12/29/20 06:07 Dose: 25 mls/hr Documented by: Levofloxacin/Dextrose 750 mg/ (Premix) 150 mls @ 100 mls/hr IV Q24H COUNT INCLUDES THE [facility] Last Admin: 12/27/20 22:08 Dose: 100 mls/hr Documented by: Vancomycin HCl 1.5 gm/ Sodium (Chloride) 500 mls @ 250 mls/hr IV ONETIME ONE Stop: 12/27/20 23:59 Last Admin: 12/27/20 22:22 Dose: 250 mls/hr Documented by: Vancomycin HCl 0.75 gm/ Sodium (Chloride) 250 mls @ 250 mls/hr IV Q24H COUNT INCLUDES THE [facility] Lactated Ringer's (Ringers, Lactated) 500 mls @ 999 mls/hr IV .BOLUS ONE Stop: 12/28/20 02:40 Last Admin: 12/28/20 02:16 Dose: 999 mls/hr Documented by: Lactated Ringer's (Ringers, Lactated) 500 mls @ 999 mls/hr IV .BOLUS ONE Stop: 12/28/20 04:31 Last Admin: 12/28/20 04:11 Dose: 999 mls/hr Documented by: Lactated Ringer's (Ringers, Lactated) 1,000 mls @ 790 mls/hr IV .BOLUS ONE Stop: 12/28/20 05:22 Last Admin: 12/28/20 04:20 Dose: 790 mls/hr Documented by: Lactated Ringer's (Ringers, Lactated) 790 mls @ 790 mls/hr IV .BOLUS ONE Stop: 12/28/20 05:06 Last Admin: 12/28/20 05:08 Dose: Not Given Documented by: Levofloxacin/Dextrose 750 mg/ (Premix) 150 mls @ 100 mls/hr IV Q48H KWADWO Sodium Chloride (Normal Saline) 500 mls @ 999 mls/hr IV BOLUS ONE Stop: 12/29/20 02:56 Last Infusion: 12/29/20 03:00 Dose: 125 mls/hr Documented by: Morphine Sulfate (Morphine) 0.5 mg IVPUSH ONETIME ONE Stop: 12/28/20 20:12 Last Admin: 12/28/20 20:17 Dose: 0.5 mg Documented by: Morphine Sulfate (Morphine) 0.5 mg IVPUSH ONETIME ONE Stop: 12/28/20 21:01 Last Admin: 12/28/20 21:09 Dose: 0.5 mg Documented by: Morphine Sulfate (Morphine) 2 mg IVPUSH ONETIME ONE Stop: 12/29/20 09:44 Last Admin: 12/29/20 09:48 Dose: 2 mg Documented by: No Warfarin Dose (Needed Tonight) 0 each PO ONETIME ONE Stop: 12/27/20 22:31 Last Admin: 12/27/20 22:55 Dose: Not Given Documented by: Tbo-Filgrastim (Granix) 300 mcg SUBCUT DAILY KWADWO Warfarin Sodium (Coumadin) 2 mg PO QPM KWADWO Stop: 12/28/20 18:01 Last Admin: 12/28/20 18:12 Dose: Not Given Documented by:
[2020-12-29] MEDS ORDERED: Warfarin Sliding Scale PO SCH (18:00)
[2020-12-29] MEDS ORDERED: Piperacillin/Tazobactam 4.5 GM in Sodium Chloride 0.9% 100 ML IV SCH (18:00)
[2020-12-29] MEDS ORDERED: Levofloxacin/Dextrose 5%-Water 500 MG in Premix Bag 1 BAG IV SCH (22:00)
[2020-12-29] MEDS ORDERED: Levofloxacin/Dextrose 5%-Water 750 MG in Premix Bag 1 BAG IV SCH (22:00)
== END 2020-12-29 14:30 | disposition expired | DRG 871 ==
LOC: JD.ED 18:03 → JD.ICU 20:20 → UNDOADMIN 21:29 → UNDODISIN 12-29 14:30
PROVIDERS: ADMIT Family Medicine; ATTEND Family Medicine
PROC: 5A09357 Assistance with Respiratory Ventilation, Less than 24 Consecutive Hours, Continuous Positive Airway Pressure (ICD-10-PCS; principal; 2020-12-28)
DX: A41.9 Sepsis, unspecified organism (principal); J18.9 Pneumonia, unspecified organism; J96.01 Acute respiratory failure with hypoxia; C79.51 Secondary malignant neoplasm of bone; N17.9 Acute kidney failure, unspecified; I48.91 Unspecified atrial fibrillation; D84.9 Immunodeficiency, unspecified; E87.3 Alkalosis; K57.92 Diverticulitis of intestine, part unspecified, without perforation or abscess without bleeding; C79.11 Secondary malignant neoplasm of bladder; K57.90 Diverticulosis of intestine, part unspecified, without perforation or abscess without bleeding; C77.4 Secondary and unspecified malignant neoplasm of inguinal and lower limb lymph nodes; E87.2 Acidosis; C77.2 Secondary and unspecified malignant neoplasm of intra-abdominal lymph nodes; Z66 Do not resuscitate; R65.20 Severe sepsis without septic shock; D70.9 Neutropenia, unspecified; R50.81 Fever presenting with conditions classified elsewhere; Y95 Nosocomial condition; R77.8 Other specified abnormalities of plasma proteins; R53.1 Weakness; R79.1 Abnormal coagulation profile; I48.0 Paroxysmal atrial fibrillation; C61 Malignant neoplasm of prostate; R57.0 Cardiogenic shock; J43.9 Emphysema, unspecified; H54.7 Unspecified visual loss; I11.0 Hypertensive heart disease with heart failure; E78.00 Pure hypercholesterolemia, unspecified; N40.0 Benign prostatic hyperplasia without lower urinary tract symptoms; M19.90 Unspecified osteoarthritis, unspecified site; D64.9 Anemia, unspecified; I50.9 Heart failure, unspecified; E78.5 Hyperlipidemia, unspecified; Z20.822 Contact with and (suspected) exposure to COVID-19; R59.0 Localized enlarged lymph nodes; N32.3 Diverticulum of bladder; Z92.21 Personal history of antineoplastic chemotherapy; Z88.8 Allergy status to other drugs, medicaments and biological substances; Z79.82 Long term (current) use of aspirin; Z79.01 Long term (current) use of anticoagulants; Z79.899 Other long term (current) drug therapy; Z79.52 Long term (current) use of systemic steroids; Z95.2 Presence of prosthetic heart valve; Z98.49 Cataract extraction status, unspecified eye; Z98.890 Other specified postprocedural states; Z99.81 Dependence on supplemental oxygen; Z85.118 Personal history of other malignant neoplasm of bronchus and lung; Z90.89 Acquired absence of other organs
CPT/HCPCS: 36415; 36600; 71045; 80053; 81001; 82803; 83605; 83735; 83880; 84484; 85007; 85027; 85610; 86140; 87040 ×2; 93005; J0696; J7030; U0002; 51702; 84100; 84145; 85025; 85730; 87641; 93010; 94660; 96374; 99223; 99238; 99285; 99285-25; A9270-GY; J1160; J1447; J1940; J1956; J2060; J2270; J2543; J3370; J7040; J7050; J7120